=== PATIENT | female | born 1970 | race Two or more races ===

== ENCOUNTER 2020-08-10 12:16 | Outpatient (REF) | payer OTHER, SELFPAY ==
--- NOTE | 2020-08-10 | MM_ITS ---
EXAMINATION: MM SCREENING DIGITAL BREAST TOMOSYNTHESIS, BILATERAL CLINICAL INFORMATION: Screening. Asymptomatic. The lifetime risk of breast cancer based on the Tyrer-Cuzick Model is 6.9%. COMPARISON: Mammography: April 13, 2019 and studies dating back to October 19, 2012 TECHNIQUE: Digital breast tomosynthesis is performed in both the craniocaudal and mediolateral oblique views along with computer-aided detection (CAD). Synthesized 2D images are generated from the tomosynthesis. FINDINGS: There are scattered areas of fibroglandular density (ACR BI-RADS breast composition Category b). There is a 7 x 5 mm well-circumscribed density about the medial aspect of the left breast on craniocaudal view approximately 4 cm from the nipple. No other right or left breast mammographic findings which appears significant. Spot compression view and possible ultrasound of the left breast is recommended. MM/MM tomosynthesis screening BI IMPRESSION: Left breast density for further evaluation as described. ASSESSMENT: BI-RADS 0: Incomplete - Need Additional Imaging Evaluation RECOMMENDATION: 1. Additional views of the left breast 2. Targeted ultrasound if warranted after review of the additional views. 3. Radiology department staff will contact the patient for additional imaging. This patient's information was entered into a reminder system with a target due date for their next mammogram.
== END 2020-08-10 12:17 | disposition home or self-care (01) ==
LOC: HO.MAMMO 12:16
PROVIDERS: PCP Internal Medicine; Visit Provider Internal Medicine
DX: Z12.31 Encounter for screening mammogram for malignant neoplasm of breast (principal)
CPT/HCPCS: 77063; 77067

== ENCOUNTER 2020-09-04 12:14 | Outpatient (REF) | payer OTHER, SELFPAY ==
--- NOTE | 2020-09-04 12:18 | MM_ITS ---
EXAMINATION: MM DIAGNOSTIC DIGITAL BREAST TOMOSYNTHESIS, LEFT TARGETED BREAST ULTRASOUND, LEFT CLINICAL INFORMATION: Density superior medial aspect of the left breast. COMPARISON: Mammography: 08/10/2020 and studies dating back to 10/19/2012. TECHNIQUE: Digital breast tomosynthesis is performed. 2D images are generated from the tomosynthesis. The following views are obtained: Spot compression craniocaudal view. FINDINGS: There are scattered areas of fibroglandular density (ACR BI-RADS breast composition Category b). There is persistence of a circumscribed density about the medial aspect of the breast approximately 4.2 cm from the nipple measuring approximately 7 x 5 mm in size. Targeted ultrasound evaluation of the left breast demonstrated two cysts, one with thin septation at 12 o'clock position measuring approximately 1.0 x 1.0 x 0.3 cm in size and one at the 11 o'clock position measuring approximately 7 x 5 x 2 mm in size. Scanning of the entire medial aspect of the breast did not demonstrate abnormal solid masses or region of abnormal distal sound shadowing. Results are provided to the patient at time of visit by the technologist. MM/MM tomosynthesis added views L IMPRESSION: Mammographic finding within the left breast likely corresponds to a cyst. Recommend six-month follow-up left breast mammogram to ensure stability. ASSESSMENT: BI-RADS 3: Probably Benign. RECOMMENDATION: Diagnostic mammography in 6 months. This patient's information was entered into a reminder system with a target due date for their next mammogram.
--- NOTE | 2020-09-04 12:18 | US_ITS ---
EXAMINATION: US DIAGNOSTIC ULTRASOUND BREAST, LEFT CLINICAL INFORMATION: Inconclusive mammogram COMPARISON: 08/10/2020 and mammography dating back to 10/19/2012. TECHNIQUE: Ultrasound of the breast is performed with real-time bolton-scale imaging and color Doppler. FINDINGS: Targeted ultrasound evaluation of the left breast demonstrated 2 cysts, one within septation at 12 o'clock position measuring approximately 1.0 x 1.0 x 0.3 cm in size and one at the 11 o'clock position approximately 7 x 5 x 2 mm in size. Scanning of the medial aspect of the breast did not demonstrate any abnormal solid masses or region of abnormal distal sound shadowing. Results are provided to the patient at time of visit by the technologist. US/US breast LT limited IMPRESSION: Mammographic finding within the left breast likely corresponds to a cyst. Recommend six-month follow-up left breast mammogram to arrange for stability. ASSESSMENT: BI-RADS 3: Probably Benign RECOMMENDATION: Diagnostic mammography in 6 months.
== END 2020-09-04 12:15 | disposition home or self-care (01) ==
LOC: HO.MAMMO 12:14
PROVIDERS: PCP Internal Medicine; Visit Provider Internal Medicine
DX: R92.2 Inconclusive mammogram (principal)
CPT/HCPCS: 76642; 77061; 77065

== ENCOUNTER 2021-03-05 13:48 | Outpatient (REF) | payer SELFPAY ==
--- NOTE | ~2021-03-05 | MM_ITS ---
EXAMINATION: MM DIAGNOSTIC DIGITAL BREAST TOMOSYNTHESIS, LEFT CLINICAL INFORMATION: Short interval follow-up probable benign nodularity left breast corresponding to cyst on targeted ultrasound. The lifetime risk of breast cancer based on the Tyrer-Cuzick Model is 6%. COMPARISON: Mammography: 09/04/2020, 08/10/2020 (BI-RADS 0), 04/13/2019, targeted left breast ultrasound 09/04/2020. TECHNIQUE: Digital breast tomosynthesis is performed in both the craniocaudal and mediolateral oblique views along with computer-aided detection (CAD). Synthesized 2D images are generated from the tomosynthesis. Additional exaggerated left CC view is provided. FINDINGS: There are scattered areas of fibroglandular density (ACR BI-RADS breast composition Category b). Parenchymal pattern is similar to prior exam. The nodularity inner quadrant appear stable. They will be reassessed again at time of annual bilateral exam, due in 6 months. There is no architectural abnormality or abnormal calcifications. No developing density. Results are provided to the patient at time of visit by the technologist. MM/MM tomosynthesis diagnostic LT IMPRESSION: There are no significant changes from prior study. ASSESSMENT: BI-RADS 3: Probably Benign RECOMMENDATION: Diagnostic mammography at time of annual bilateral exam, due in 6 months. This patient's information was entered into a reminder system with a target due date for their next mammogram.
== END 2021-03-05 13:49 | disposition home or self-care (01) ==
LOC: HO.MAMMO 13:48
PROVIDERS: Visit Provider Internal Medicine
DX: N60.02 Solitary cyst of left breast (principal)
CPT/HCPCS: 77061; 77065

== ENCOUNTER 2021-09-04 13:19 | Outpatient (REF) | payer SELFPAY ==
--- NOTE | ~2021-09-04 | MM_ITS ---
EXAMINATION: MM DIAGNOSTIC DIGITAL BREAST TOMOSYNTHESIS, BILATERAL CLINICAL INFORMATION: Due for yearly. Short interval follow-up benign nodularity left breast corresponding to cyst on targeted ultrasound. The lifetime risk of breast cancer based on the Tyrer-Cuzick Model is 5%. COMPARISON: Mammography: 03/05/2021, 09/04/2020, 08/10/2020 (BI-RADS 0), 04/13/2019; targeted left breast ultrasound 09/04/2020 and targeted right breast ultrasound 04/22/2019. TECHNIQUE: Digital breast tomosynthesis is performed in both the craniocaudal and mediolateral oblique views along with computer-aided detection (CAD). Synthesized 2D images are generated from the tomosynthesis. Additional exaggerated right CC, magnification left CC, magnification left LM views are obtained. FINDINGS: There are scattered areas of fibroglandular density (ACR BI-RADS breast composition Category b). Nodular asymmetry mid 11:00 left breast and nodular asymmetry anterior upper outer right breast are similar to prior studies. There is no architectural abnormality or developing density. The axilla and skin contours are unremarkable. There are a few punctate calcifications in the upper inner left breast, in retrospect similar to recent prior exams 03/05/2021 and 09/04/2020. Left breast will be reassessed again in 6 months to also include magnification views. Results are provided to the patient at time of visit by the technologist. MM/MM tomosynthesis diagnostic BI IMPRESSION: 1. Left: Nodularity stable. No developing density. Fine benign appearing calcifications. 2. Right: No significant changes from prior studies. ASSESSMENT: BI-RADS 3: Probably Benign RECOMMENDATION: Diagnostic left mammography in 6 months to include additional magnification views. This patient's information was entered into a reminder system with a target due date for their next mammogram.
== END 2021-09-04 13:20 | disposition home or self-care (01) ==
LOC: HO.MAMMO 13:19
PROVIDERS: Visit Provider Internal Medicine
DX: R92.2 Inconclusive mammogram (principal)
CPT/HCPCS: 77062; 77066

== ENCOUNTER 2023-06-07 10:40 | Emergency (ER) | payer OTHER, SELFPAY ==
[2023-06-07 11:15] VITALS: BP 154/102; PULSE 136; RESP 19; TEMP 37.4; O2SAT 98; BMI 21.5
--- NOTE | 2023-06-07 11:18 | ECG_ITS ---
Test Reason : ANXIETY/HEADACHE Blood Pressure : / mmHG Vent. Rate : 112 BPM Atrial Rate : 112 BPM P-R Int : 162 ms QRS Dur : 086 ms QT Int : 336 ms P-R-T Axes : 072 057 038 degrees QTc Int : 458 ms Sinus tachycardia with occasional , and consecutive Premature ventricular complexes Minimal voltage criteria for LVH, may be normal variant ( Sokolow-Ventura ) Nonspecific T wave abnormality Abnormal ECG When compared with ECG of 11-APR-2016 23:50, Nonspecific T wave abnormality is now Present Premature ventricular complexes are now Present Heart rate has increased Referred By: Generic ED Physician Electronically Signed By:YISSEL GARCIA
[2023-06-07 11:32] LABS: MANUAL DIFF FLAG NO
[2023-06-07 11:39] LABS: Basophils Absolute Auto 0.1 X10*3/uL (0.0-0.2); Basophils Percent Auto 1.1 % (0-2); Eosinophils Absolute Auto 0.1 X10*3/uL (0.0-0.4); Eosinophils Percent Auto 1.1 % (0-4); Hemoglobin 13.8 g/dl (12.0-16.0); Imm Gran Abs Auto 0.01 X10*3/uL (0.00-0.03); Imm Gran Pct Auto 0.2 % (0.0-0.4); Lymphocytes Absolute Auto 1.1 X10*3/uL (1.2-4.9); Lymphocytes Percent Auto 25.1 % (20-40); Mean Corpuscular HGB Conc 34.5 g/dl (31.0-35.0); Mean Corpuscular Hemoglobin 32.5 pg (27.0-33.0); Mean Corpuscular Volume 94.3 fL (80.0-98.0); Mean Platelet Volume 9.6 fL (9.4-12.3); Monocytes Absolute Auto 0.4 X10*3/uL (0.1-1.2); Monocytes Percent Auto 8.1 % (2-11); Neutrophils Absolute Auto 2.9 x10*3/uL (2.0-8.3); Neutrophils Percent Auto 64.4 % (45-73); Platelet Count 326 X10*3/uL (160-400); Red Blood Count 4.24 X10*6/uL (4.20-5.50); Red Cell Distribution Width 12.4 % (11.0-16.0); White Blood Count 4.4 X10*3/uL (4.8-10.8)
[2023-06-07 11:58] LABS: COVID-19 Test Negative (Negative); IDNOW Serial# 08D9AD1C
[2023-06-07 11:59] LABS: IDNOW Serial# BCCEAD1C; Influenza A Negative (Negative); Influenza B2 Negative (Negative)
[2023-06-07 12:00] LABS: Anion Gap 12 (12-20); Blood Urea Nitrogen 8 mg/dL (9-16); Carbon Dioxide 27 mmol/L (22-29); Chloride 105 mmol/L (96-108); Creatinine Clr Calc Pharmacy 71.9; Estimated Glomerular Filt Rate > 60; Glucose Random 83 mg/dL (60-115); Potassium 3.1 mmol/L (3.3-5.1); Sodium 141 mmol/L (135-145)
[2023-06-07 14:22] VITALS: BP 145/89; PULSE 99; RESP 16; O2SAT 100
--- NOTE | 2023-06-07 14:23 | PC.NURSE ---
pt reporting elevated BP, some dizziness an anxiety. Pt resting on stretcher comfortably , respirations even and unlabored, skin pwd, no apparent distress at this time
--- NOTE | 2023-06-07 15:01 | ED_ITS ---
HPI - General Adult General Chief complaint: General Medical Stated complaint: Anxiety/ Headache Time Seen by Provider: 06/07/23 14:17 Source: patient Mode of arrival: ambulatory Limitations: no limitations History of Present Illness HPI narrative: 52-year-old female with PMHx of HTN, anxiety, migraines presents to the ED today with a complaint of headache, dizziness, palpitations, paresthesias in her toes x2 days. Reports symptom onset yesterday however resolved into the evening. Went to [facility] to measure her BP which was 170/80. Took 2 doses of amlodipine at that time. Symptoms resolved until waking up this morning. Reports PATEL feels like her typical migraine. She's been unable to refill her abortive migraine rx due to losing her health insurance. Reports anxiety surrounding her son who passed from an NC at a young age. Denies vision changes, fever, chills, nausea, vomiting, chest pain, shortness of breath, abdominal pain, lower extremity edema/pain, weakness or numbness of the extremities, syncope. Denies history of NC or CAD. No history of VTE. Not on AC. Related Data Previous Rx's Medication Instructions Recorded sumatriptan succinate 50 mg tablet See Rx Instructions PO .COMPLEX 12/27/21 (Imitrex) #14 tabs amlodipine 5 mg tablet 5 mg PO DAILY 90 days #90 tabs 10/07/22 cyclobenzaprine 10 mg tablet 10 mg PO TID PRN for cramps #90 12/27/22 caps lorazepam 0.5 mg tablet 0.5 mg PO BEDTIME PRN anxiety 30 12/29/22 days #30 tabs lorazepam 0.5 mg tablet (Ativan) 0.5 mg PO DAILY PRN anxiety #10 06/07/23 tabs Allergies Allergy/AdvReac Type Severity Reaction Status Date / Time azithromycin Allergy Unknown rash, hives Verified 06/07/23 11:15 [Zithromax Z-Issac] lisinopril Allergy Unknown muscle Verified 06/07/23 11:15 cramps metoprolol Allergy Unknown bruises Verified 06/07/23 11:15 simvastatin Allergy Unknown face Verified 06/07/23 11:15 swelling Review of Systems 2 Review of Systems: Constitutional: No fever, No chills, No fatigue, No malaise ENT/Mouth: No ear pain, No hearing loss,? No nasal congestion, No sinus pain Eyes: No eye pain, No swelling, No redness, No vision changes, No foreign body, No discharge Cardio: No chest pain, + palpitations, No dyspnea on exertion, No orthopnea, No edema Respiratory: No SOB, No cough, No sputum, No wheezing, No dyspnea GI: No nausea, No vomiting, No hematemesis, No abdominal pain, No diarrhea : No irregular bleeding, No dysuria, No frequency, No urgency, No hesitancy, No hematuria MSK: No back pain, No neck pain, No joint pain, No myalgias Skin: No skin lesions, No rashes Neuro: No weakness, No numbness, + paresthesias, No LOC, + dizziness, + headache Psych: + anxiety/panic, No depression, No SI/HI, No AH/VH Heme/Lymph: No bruising, No bleeding, No lymphadenopathy Endocrine: No Polyuria, No Polydipsia, No Temperature Intolerance Yes all other systems are reviewed and are negative [facility] Past Medical History Attestation statement: The following information was validated with the patient. Source: old records reviewed and nursing notes reviewed Medical History Hypercholesterolemia Hypertension Tobacco abuse Anxiety Alcohol abuse Surgical History History of tubal ligation History of appendectomy Family History Family History Father Diabetes Hypertension CVD (cardiovascular disease) Stroke Mother Diabetes Hypertension Cervical cancer Sister Uterine cancer Maternal Aunt Cervical cancer Social History Social History Housing: House Alcohol intake: current Alcohol intake frequency: a few times a month Patient Tobacco Use Status: Current everyday Tobacco user Tobacco use type: Cigarette Cigarettes Per Day: 10 e-Cigarette/Vaping Use: Never Used Second Hand Smoke Exposure: No Advance Directives: No service: No Current occupational status: employed Current occupational exposures/hazards: No Cognitive needs: No Hearing needs: No Vision needs: No Physical Exam ED Vital Signs: Vital Signs - 24 hr 06/07/23 11:15 06/07/23 14:22 Temperature 99.4 F Pulse Rate 136 H 99 Respiratory Rate 19 16 Blood Pressure 154/102 H 145/89 H Pulse Oximetry 98 100 Oxygen Delivery Method Room Air Room Air BMI result Body Mass Index 21.5 Signs initially tachycardic to 136, now at 99 > likely secondary to anxiety. General: Nontoxic appearing. Tearful, speaking about the loss of her son. Skin: Warm and dry. No rashes or lesions. Head: Normocephalic, atraumatic. EENT: EAC patent. Hearing is intact b/l. Conjunctiva clear. Sclera is anicteric. PERRLA. EOM intact. Nasal septum is midline. Nares patent bilaterally. Moist mucous membranes. Neck: Supple without LAD. Normal ROM. Trachea midline.? Cardiac: Chest wall symmetric. Regular rate and rhythm. S1 and S1 appreciated. No MRG. No JVD. Lungs: CTA bilaterally. No rales, rhonchi, or wheezes. Normal respiratory effort without accessory muscle use. Abdomen: No visible lesions or scars. Soft, non-tender, non-distended. No rebound tenderness or guarding. Normoactive BS x4. No masses, hepatomegaly, or splenomegaly.? Ext: Upper and lower extremities atraumatic. Full ROM throughout. Strength 5/5 throughout. Capillary refill <2 seconds in all extremities. Pulses 2+ equal and bilateral. No edema, cyanosis, or clubbing. Negative sebastien b/l. Neuro: Alert and oriented x3. Normal speech. CN 2-12 grossly intact. Sensation intact to light touch.? Neurovascular intact distally. Reflexes 2+ bilaterally. Normal finger to nose and heel to blanco. Ambulating with steady gait. Psych: Responds appropriately to questions.? Course Course Course Narrative: CBC without leukocytosis or anemia. Hypokalemic to 3.1 > 60 of oral potassium given. No other acute electrolyte abnormalities requiring intervention. Troponin negative. COVID and flu negative. On re-evaluation, patient much more calm stating that she feels lot better after receiving medications. No longer has a migraine. Does not feel anxious. Blood pressure improved. Patient would like to go home. > patient asking to refill her Ativan. Referred to [facility] > has not filled since December. She tells me that she has an appointment with her PCP at the end of this month. Will send patient home with a short script of Ativan to take as needed for anxiety. Advised patient that she will have to f/u with PCP for further prescriptions/ management. > discussed lab results and EKG results w/ patient. All questions answered. Discussed worrisome signs and symptoms and when to return to the emergency department. Patient agreeable with disposition. Stable for discharge. Medications Administered Discontinued Medications Generic Name Dose Route Start Last Admin Trade Name Zuri PRN Reason Stop Dose Admin Diphenhydramine HCl 50 mg 06/07/23 14:57 06/07/23 15:40 Diphenhydramine Hcl 25 Mg Capsule PO 06/07/23 14:58 50 mg ONCE ONE Administration Ketorolac Tromethamine 15 mg 06/07/23 14:57 06/07/23 15:39 Ketorolac Tromethamine 15 Mg/Ml Vial IM 06/07/23 14:58 15 mg ONCE ONE Administration Lorazepam 1 mg 06/07/23 14:57 06/07/23 15:40 Lorazepam 1 Mg Tablet PO 06/07/23 14:58 1 mg ONCE ONE Administration Metoclopramide HCl 10 mg 06/07/23 14:57 06/07/23 15:39 Metoclopramide Hcl 10 Mg/2 Ml Vial IM 06/07/23 14:58 10 mg ONCE ONE Administration Potassium Chloride 60 meq 06/07/23 16:39 06/07/23 17:50 Potassium Chloride Er 20 Meq Tab.Er.Prt PO 06/07/23 16:40 60 meq ONCE ONE Administration Medical Decision Making Medical Decision Making MDM Narrative: 52-year-old female with PMHx of HTN, anxiety, migraines presents to the ED today with a complaint of headache, dizziness, palpitations, paresthesias in her toes x2 days. Signs notable for hypertension. Initially tachycardic to 136, now 99. Afebrile, non hypoxic. Patient tearful during examination secondary to speaking about the loss of her son. SHAISTA. Lungs clear to auscultation bilaterally. Tachy rate with normal rhythm. Nonfocal exam. Cerebellum intact. Ambulating with steady gait. Concern for anxiety vs arrhythmia vs headache vs migraine. Unlikely CVA, TIA, intracranial hemorrhage, posterior stroke, PE (PERC initially 1, now 0), ACS, dissection, DVT, pneumonia. Plan: labs, ekg, trop, medicaion Differential Diagnosis Differential Diagnoses: The differential diagnosis associated with the presentation includes Concern for anxiety vs arrhythmia vs headache vs migraine. Unlikely CVA, TIA, intracranial hemorrhage, posterior stroke, PE (PERC initially 1, now 0), ACS, dissection, DVT, pneumonia. Lab Data MDM Lab Attestation statement: I reviewed the patient's lab results. see course narrative above 06/07/23 11:27 06/07/23 11:27 Labs: Lab Results 06/07/23 Range/Units 11:27 WBC 4.4 L (4.8-10.8) X10*3/uL RBC 4.24 (4.20-5.50) X10*6/uL Hgb 13.8 (12.0-16.0) g/dl Hct 40.0 (37.0-47.0) % MCV 94.3 (80.0-98.0) fL MCH 32.5 (27.0-33.0) pg MCHC 34.5 (31.0-35.0) g/dl RDW 12.4 (11.0-16.0) % Plt Count 326 (160-400) X10*3/uL MPV 9.6 (9.4-12.3) fL Immature Gran % (Auto) 0.2 (0.0-0.4) % Neut % (Auto) 64.4 (45-73) % Lymph % (Auto) 25.1 (20-40) % [place] % (Auto) 8.1 (2-11) % Eos % (Auto) 1.1 (0-4) % Baso % (Auto) 1.1 (0-2) % Lymph # (Auto) 1.1 L (1.2-4.9) X10*3/uL [place] # (Auto) 0.4 (0.1-1.2) X10*3/uL Eos # (Auto) 0.1 (0.0-0.4) X10*3/uL Baso # (Auto) 0.1 (0.0-0.2) X10*3/uL Abs Immat Gran (auto) 0.01 (0.00-0.03) X10*3/uL Absolute Neuts (auto) 2.9 (2.0-8.3) x10*3/uL Absolute Nucleated RBC 0.000 (0.0-0.012) X10*3/uL Nucleated RBC % (auto) 0.0 (0.0-0.2) /100WBC Sodium 141 (135-145) mmol/L Potassium 3.1 L (3.3-5.1) mmol/L Chloride 105 (96-108) mmol/L Carbon Dioxide 27 (22-29) mmol/L Anion Gap 12 (12-20) BUN 8 L (9-16) mg/dL Creatinine 0.79 (0.5-1.4) mg/dL Estim Creat Clear Calc 71.9 Estimated GFR > 60 Random Glucose 83 (60-115) mg/dL Calcium 10.0 (8.4-10.2) mg/dL Troponin I High Sens 7.0 (<3.5-17.0) ng/L COVID-19 ([place]) Negative (Negative) COVID-19 Clin Com See Note Influenza Type A ([facility]) Negative (Negative) Influenza Type B ([facility]) Negative (Negative) Influenza A & B Note See Note Independent Interpretation I performed an independent interpretation of an: EKG (Sinus tachycardia at a rate of 112 BPM, CT of 336, no acute ischemic changes.) External Record Review External record reviewed: Inpatient record Prescription Management I considered prescription management with: Pain Medication and Other (anxiolitic) Chronic Conditions Patient?s care impacted by: Hypertension Core Measures AMI core measures followed: Yes Measure exclusions: not indicated Discharge Plan Discharge Clinical Impression: Anxiety, Migraine, Hypertension Patient Disposition: Home, Self-Care Instructions: Migraine Headache (ED), Hypertension (ED), Anxiety (ED) Additional Instructions: Your lab workup is reassuring. You tested negative for COVID and flu. Your EKG was normal. Your heart enzymes were negative. your potassium was noted to be low. You were given oral potassium in the ED. please follow-up with your primary care physician to make sure that her potassium levels are adequate. A prescription for your Ativan has been sent to your pharmacy. Take this as needed for anxiety. Keep your appointment with your primary care physician at the end of this month for further treatment. Return to the ED if your symptoms persist or worsen. Prescriptions: New lorazepam [Ativan] 0.5 mg tablet 0.5 mg PO DAILY PRN (Reason: anxiety) Qty: 10 0RF No Action cyclobenzaprine 10 mg tablet 10 mg PO TID PRN (Reason: for cramps) Qty: 90 0RF lorazepam 0.5 mg tablet 0.5 mg PO BEDTIME PRN (Reason: anxiety) 30 Days Qty: 30 0RF sumatriptan succinate [Imitrex] 50 mg tablet See Rx Instructions PO .COMPLEX Qty: 14 1RF Rx Instructions: take 1 tab at onset of headache; if no relief may repeat 1 tab after at least 2 hrs; max = 4 tabs/24 hr PO amlodipine 5 mg tablet 5 mg PO DAILY 90 Days Qty: 90 2RF Referrals: Po,Marzena Shelby MD [Primary Care Provider] - Interventions: ED Discharge Assessment Last Done: 06/07/23 17:54 Discharge Date/Time: 06/07/23 17:55
[2023-06-07] MEDS: Metoclopramide HCl 10 MG/2 ML VIAL IM (15:39)
[2023-06-07] MEDS: Ketorolac Tromethamine 15 MG/ML VIAL IM (15:39)
[2023-06-07] MEDS: diphenhydrAMINE HCL 25 MG CAPSULE 50 MG PO (15:40)
[2023-06-07] MEDS: LORazepam 1 MG TABLET PO (15:40)
[2023-06-07] MEDS: Potassium Chloride ER 20 MEQ TAB.ER.PRT 60 MEQ PO (17:50)
== END 2023-06-07 17:55 | disposition home or self-care (01) ==
PROVIDERS: Emergency Provider Emergency Medicine; PCP Internal Medicine
DX: F41.9 Anxiety disorder, unspecified (principal); G43.909 Migraine, unspecified, not intractable, without status migrainosus; I10 Essential (primary) hypertension; R00.0 Tachycardia, unspecified; Z20.822 Contact with and (suspected) exposure to COVID-19; E78.00 Pure hypercholesterolemia, unspecified; Z79.899 Other long term (current) drug therapy
CPT/HCPCS: 36415; 80048; 84484; 85025; 87502; 87635; 93005; 96372; 99284; J1885; J2765

== ENCOUNTER 2023-06-25 16:27 | Outpatient (AMB) | payer OTHER, SELFPAY ==
[2023-06-25 16:28] VITALS: BP 150/66; PULSE 101; O2SAT 96; BMI 21.5
--- NOTE | 2023-06-25 16:28 | A.OFFPC_ITS ---
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: No Allergies azithromycin [Zithromax Z-Issac] Allergy (Unknown, Verified 06/25/23 16:38) rash, hives lisinopril Allergy (Unknown, Verified 06/25/23 16:38) muscle cramps metoprolol Allergy (Unknown, Verified 06/25/23 16:38) bruises simvastatin Allergy (Unknown, Verified 06/25/23 16:38) face swelling Medication List - Last Reconciled 06/25/23 by VALENTINA Anderson amlodipine 5 mg PO DAILY 90 days cyclobenzaprine 10 mg PO TID PRN lorazepam 0.5 mg PO BEDTIME PRN 30 days sumatriptan succinate (Imitrex) take 1 tab at onset of headache; if no relief may repeat 1 tab after at least 2 hrs; max = 4 tabs/24 hr PO Tobacco use date assessed: 06/25/23 Dental Screening Dental Screen Date: 06/25/23 Did you have a dental visit in the last 12 months?: Yes Did you have a dental problem in the last 6 months where you did not have access to dental care?: No Was dental information given to patient?: Patient has dentist HPI PHYSICAL HPI Details Patient is a 52-year-old female who presents today for physical exam. Patient of Dr. Carmen. Medical history significant for anxiety, tobacco abuse- patient reports smoking about 7-10 cigarettes per day-would like to have nicotine patch-will refer for low-dose chest CT scan, hypertension, hypercholesterolemia, migraine-stable with sumatriptan p.r.n.. Patient has referral for mammogram, will follow-up on this. Pap smear normal 2019 per patient. Today we discussed patient's need for colon cancer screening. Patient reports that 1 month ago she did removed tick from her head and she would like to have Lyme disease blood work done, she did not go to the emergency department. Reports blood pressures at home systolic in 140s and 150s. No shortness of breath or chest pain. [facility] Medical History COVID-19 virus infection Hypercholesterolemia Hypertension Tobacco abuse Anxiety Alcohol abuse Surgical History History of tubal ligation History of appendectomy Family History Father Diabetes Hypertension CVD (cardiovascular disease) Stroke Mother Diabetes Hypertension Cervical cancer Sister Uterine cancer Maternal Aunt Cervical cancer Social History Housing: House Alcohol intake: current Alcohol intake frequency: a few times a month Patient Tobacco Use Status: Current everyday Tobacco user Tobacco use type: Cigarette Cigarettes Per Day: 10 e-Cigarette/Vaping Use: Never Used Second Hand Smoke Exposure: No service: No Current occupational status: employed Current occupational exposures/hazards: No Cognitive needs: No Hearing needs: No Vision needs: No Questionnaire PHQ-9 Over the last 2 weeks, how often have you been bothered by any of the following problems? 1. Little interest or pleasure in doing things: not at all 2. Feeling down, depressed, or hopeless: more than half the days 3. Trouble falling or staying asleep, or sleeping too much: several days (sleeping less ) 4. Feeling tired or having little energy: several days 5. Poor appetite or overeating: not at all 6. Feeling bad about yourself - or that you are a failure or have let yourself or your family down: several days 7. Trouble concentrating on things, such as reading the newspaper or watching television: several days 8. Moving or speaking so slowly that other people could have noticed. Or the opposite - being so fidgety or restless that you have been moving around a lot more than usual: not at all 9. Thoughts that you would be better off or of hurting yourself in some way: not at all Total score: 6 Depression Screening Interpretation: Negative 21284 - PHQ-9 Billing: Yes Source: Developed by Drs. Binu Calhoun, Savannah Calvillo, Melquiades Hale and colleagues, with an educational gallo from [employer]. Thrive Questionnaire Date Thrive assessed: 06/25/23 I am a: Patient What is your living situation today?: I have a steady place to live Within the past 12 months, did the food you bought not last and you didn't have the money to get more?: Never true Within the past 12 months, did you worry whether your food would run out before you got money to buy more?: Never true Currently or been in a relationship where the following occur: no concerns reported AUDIT C Alcohol Use Questionnaire (AUDIT-C) 1. How often do you have a drink containing alcohol?: Monthly or less 2. How many drinks containing alcohol do you have on a typical day when you are drinking?: 1 or 2 3. How often do you have six or more drinks on one occasion?: Never Total Score: 1 Score Reviewed/Action Taken: Yes (reviewed, she reports not drinking every day. ) MACHO-7 AMB Questionnaire MACHO-7 Date MACHO - 7 assessed: 10/07/22 Feeling nervous, anxious, or on edge: 2 = More than half the days Not being able to stop or control worryin = Not at all Worrying too much about different things: 2 = More than half the days Trouble relaxin = Not at all Being so restless that it is hard to sit still: 0 = Not at all Becoming easily annoyed or irritable: 2 = More than half the days Feeling afraid as if something awful might happen: 0 = Not at all Total MACHO-7 score (0-4 normal; 5-9 mild; 10-14 moderate; 15-21 severe): 6 Source: Developed by Drs. Binu Calhoun, Savannah Calvillo, Melquiades Hale and colleagues, with an educational gallo from [employer]. MACHO-7 Assessment Billing MACHO-7 Assessment Tool: AMCHO-7 Assessment 95654 Review of Systems Const Denies body aches, Denies chills, Denies fever(s) and Denies headache(s) Eyes Denies change in vision ENT Denies dizziness, Denies otalgia, Denies headache(s), Denies nasal discharge, Denies sinus pain and Denies sore throat Card Denies chest pain, Denies edema, Denies lightheadedness and Denies dyspnea Resp Denies cough, Denies dyspnea and Denies wheezing GI Denies constipation, Denies diarrhea, Denies nausea and Denies vomiting Denies dysuria Musc Reports back pain and Denies myalgias Skin/Breast Denies rash Neuro Denies dizziness and Denies headache(s) Aller/Immun Denies wheezing Physical exam (Primary Care) Vital Signs: Last Vital Signs Pulse 101 H 06/25/23 16:28 BP 150/66 H 06/25/23 16:28 Pulse Ox 96 06/25/23 16:28 Oxygen Delivery Method Room Air 06/25/23 16:28 BMI result Body Mass Index 21.5 Tobacco/Smoking Status: Tobacco use Status Tobacco use date assessed 06/25/23 06/25/23 16:30 Patient Tobacco Use Status Current everyday Tobacco 06/25/23 16:30 Tobacco use type Cigarette 06/25/23 16:30 e-Cigarette/Vaping Use Never Used 06/25/23 16:30 PHQ-9: PHQ-9 Score PHQ-9: Total score 6 06/25/23 16:36 Depression Screening Interpretation: Negative Thrive Assessment: Date of Thrive Assessment Date Thrive assessed 06/25/23 06/25/23 16:30 Currently or been in a relationship where the following occur: no concerns reported Const General: cooperative and no acute distress Orientation/consciousness: patient oriented x3 HENMT Head: Yes normocephalic and Yes atraumatic Ears: TM's normal bilaterally Face and sinus: Yes sinuses nontender Mouth: oropharynx normal and moist mucous membranes Throat: Yes posterior oropharynx normal Eyes General: appearance normal, both eyes and all related structures Pupils: Equal, round and reactive pupils present EOM: EOMs intact bilaterally Neck Neck: Yes normal visual inspection, Yes full ROM and Yes no lymphadenopathy Thyroid: Thyroid normal Resp Effort & Inspection: normal respiratory effort and able to speak in complete sentences Auscultation: clear to auscultation bilaterally, no crackles, no rales, no rhonchi and no wheezes Cardio Rate: regular rate Rhythm: regular rhythm Heart sounds: S1 normal heart sound present, S2 normal heart sound present and no murmurs GI Palpation (GI): Soft to palpation, not firm, nontender, no guarding, not rigid and no hepatosplenomegaly Auscultation: normal bowel sounds General: No CVA tenderness Back/Spine/Pelvis Back: No CVA tenderness Skin General skin exam: no rashes or lesions noted Neuro General: patient oriented x3 Cranial nerves: Yes Equal, round and reactive pupils present Gait exam (Neuro): Normal gait present Extrem General: Yes full ROM and No edema Assessment and Plan Assessment & Plan (1) Tick bite: Comment: 04/2023 Code(s): W57.XXXA - Bitten or stung by nonvenomous insect and other nonvenomous arthropods, initial encounter Plan: Lyme disease blood work ordered (2) Annual physical exam: Code(s): Z00.00 - Encounter for general adult medical examination without abnormal findings Plan: Patient was encouraged to complete her blood work that was ordered by PCP (3) Colon cancer screening: Code(s): Z12.11 - Encounter for screening for malignant neoplasm of colon (4) Migraine: Code(s): G43.909 - Migraine, unspecified, not intractable, without status migrainosus Plan: Stable with sumatriptan p.r.n. (5) Hypertension: Code(s): I10 - Essential (primary) hypertension Plan: Goal BP equal or less than 140/90 Blood pressure elevated Increase amlodipine to 10 mg daily Reinforced low-sodium diet Follow-up with nurse in 2 weeks for BP recheck Monitor blood pressures at home (6) Tobacco abuse: Comment: discussed about smoking 09/2022 Code(s): Z72.0 - Tobacco use Plan: Nicotine patch sent Referral for low-dose chest CT scan (7) Anxiety: Code(s): F41.9 - Anxiety disorder, unspecified Plan: Continue lorazepam at bedtime p.r.n.-educated about dependency and memory loss Patient is not interested in counseling referral (8) Back pain: Code(s): M54.9 - Dorsalgia, unspecified Plan: Patient reports chronic intermittent back pains and she requested refill on cyclobenzaprine that she takes as needed with improvement Plan Follow-up with PCP in 4 months or sooner as needed Orders: Orders Lyme IgG/IgM w/reflex to WB Today W57.XXXA - Bitten or stung by nonvenomous insect and other nonvenomous arthropods, initial encounter Referrals Thoracic Surgery Referral Z72.0 - Tobacco use Gastroenterology Referral Z12.11 - Encounter for screening for malignant neoplasm of colon Medications: New amlodipine 10 mg PO DAILY 90 tabs 1RF I10 - Essential (primary) hypertension nicotine 1 patch transdermal Q24H 28 ea 0RF Z72.0 - Tobacco use Refilled cyclobenzaprine 10 mg PO TID PRN 90 caps 0RF for cramps Discontinued amlodipine Discontinued Reason: Doctor's Order 5 mg PO DAILY 90 days 90 tabs 2RF Z12.11 - Encounter for screening for malignant neoplasm of colon Coding Level of Care Code Est Pt Prev Care 40-64y(43965) Diagnoses Tick bite W57.XXXA Annual physical exam Z00.00 Colon cancer screening Z12.11 Migraine G43.909 Primary hypertension I10 Tobacco abuse Z72.0 Anxiety F41.9 Back pain M54.9 Additional Codes MACHO-7 Assessment Billing - MACHO-7 Assessment Tool: MACHO-7 Assessment [id number] ([id number])
[2023-06-25 16:50] VITALS: BP 158/80
== END 2023-06-25 16:55 | disposition home or self-care (01) ==
PROVIDERS: PCP Internal Medicine; Visit Provider Nurse Practitioner Family
DX: Z00.00 Encounter for general adult medical examination without abnormal findings (principal); T63.481A Toxic effect of venom of other arthropod, accidental (unintentional), initial encounter; G43.909 Migraine, unspecified, not intractable, without status migrainosus; I10 Essential (primary) hypertension; Z72.0 Tobacco use; F41.9 Anxiety disorder, unspecified; M54.9 Dorsalgia, unspecified
CPT/HCPCS: 99396

== ENCOUNTER 2023-06-30 08:37 | Outpatient (REF) | payer OTHER, SELFPAY ==
[2023-06-30 09:03] LABS: MANUAL DIFF FLAG NO
[2023-06-30 09:16] LABS: Basophils Percent Auto 0.9 % (0-2); Eosinophils Absolute Auto 0.1 X10*3/uL (0.0-0.4); Eosinophils Percent Auto 3.3 % (0-4); Hematocrit 37.6 % (37.0-47.0); Hemoglobin 12.4 g/dl (12.0-16.0); Lymphocytes Absolute Auto 1.2 X10*3/uL (1.2-4.9); Lymphocytes Percent Auto 28.6 % (20-40); Mean Corpuscular Hemoglobin 32.2 pg (27.0-33.0); Mean Corpuscular Volume 97.7 fL (80.0-98.0); Mean Platelet Volume 9.7 fL (9.4-12.3); Monocytes Absolute Auto 0.5 X10*3/uL (0.1-1.2); Monocytes Percent Auto 11.2 % (2-11); Neutrophils Absolute Auto 2.4 x10*3/uL (2.0-8.3); Platelet Count 295 X10*3/uL (160-400); Red Blood Count 3.85 X10*6/uL (4.20-5.50); Red Cell Distribution Width 12.6 % (11.0-16.0); White Blood Count 4.3 X10*3/uL (4.8-10.8)
[2023-06-30 10:10] LABS: Alanine Aminotransferase 18 U/L (0-31); Albumin Level 4.3 g/dL (3.5-5.0); Alkaline Phosphatase 131 U/L (39-117); Anion Gap 13 (12-20); Aspartate Amino Transferase 21 U/L (5-31); Bilirubin Total 0.4 mg/dL (0.0-1.0); Blood Urea Nitrogen 13 mg/dL (9-16); Calcium 9.3 mg/dL (8.4-10.2); Carbon Dioxide 25 mmol/L (22-29); Chloride 107 mmol/L (96-108); Cholesterol 274 mg/dL (<200); Estimated Glomerular Filt Rate > 60; Glucose Random 88 mg/dL (60-115); HDL Cholesterol 58 mg/dL (>40); LDL Cholesterol Calculated 203 mg/dL (<100); Potassium 3.8 mmol/L (3.3-5.1); Sodium 141 mmol/L (135-145); Total Protein 7.6 g/dL (6.5-8.0); Triglycerides 69 mg/dL (<150)
[2023-06-30 10:30] LABS: TSH reflex Free T4 0.91 uIU/mL (0.32-4.0)
[2023-06-30 10:35] LABS: Folate 11.8 ng/mL (> or = 4.0); Vitamin B12 479 pg/mL (200-900)
[2023-07-02 02:04] LABS: Lyme Abs Screen <0.90 index
[2023-07-05 15:48] LABS: Vitamin D 25-OH, D2 <4 ng/mL; Vitamin D 25-OH, D3 26 ng/mL; Vitamin D 25-OH, Total 26 ng/mL (30-100)
== END 2023-06-30 08:38 | disposition home or self-care (01) ==
LOC: HO.LAB 08:37
PROVIDERS: Nurse Practitioner Family; PCP Internal Medicine; Visit Provider Internal Medicine
DX: Z00.00 Encounter for general adult medical examination without abnormal findings (principal); I10 Essential (primary) hypertension; T14.8XXA Other injury of unspecified body region, initial encounter; W57.XXXA Bitten or stung by nonvenomous insect and other nonvenomous arthropods, initial encounter; Y93.9 Activity, unspecified; Y92.9 Unspecified place or not applicable; Y99.9 Unspecified external cause status; E55.9 Vitamin D deficiency, unspecified
CPT/HCPCS: 36415; 80053; 80061; 82306; 82607; 82746; 84443; 85025; 86617; 86618

== ENCOUNTER 2023-07-21 08:51 | Outpatient (REF) | payer OTHER, SELFPAY ==
--- NOTE | ~2023-07-21 | MM_ITS ---
EXAMINATION: MM SCREENING DIGITAL BREAST TOMOSYNTHESIS, BILATERAL CLINICAL INFORMATION: Screening. Asymptomatic. COMPARISON: Mammography: This study is compared with prior exams dating back to 2019. TECHNIQUE: Digital breast tomosynthesis is performed in both the craniocaudal and mediolateral oblique views along with computer-aided detection (CAD). Synthesized 2D images are generated from the tomosynthesis. FINDINGS: There are scattered areas of fibroglandular density (ACR BI-RADS breast composition Category b). Grouped calcifications in superior aspect of the left breast are present. These were evaluated with magnification imaging in August 2021 and felt to be likely benign. At that time, short interval six-month follow-up right diagnostic mammography with magnification is advised. No mammograms were performed after 09/04/2021. The patient should return for magnification imaging of these calcifications. They would then be able to be evaluated 2 years from their original magnification imaging. This would allow definitive determination of their benign nature, should there be no significant interval change. In the right breast, there are no significant masses, abnormal calcifications, or other abnormalities. MM/MM tomosynthesis screening BI IMPRESSION: Grouped calcifications of the left breast warrant additional mammographic imaging magnification. No mammographic signs of malignancy right breast. ASSESSMENT: BI-RADS BI-RADS 0 - Incomplete: Needs additional Imaging. RECOMMENDATION: Additional views of the left breast Radiology department staff will contact the patient for additional imaging. Additional Imaging required This examination should not preclude the clinical evaluation of a suspicious palpable abnormality. This patient's information was entered into a reminder system with a target due date for their next mammogram.
== END 2023-07-21 08:52 | disposition home or self-care (01) ==
LOC: HO.MAMMO 08:51
PROVIDERS: PCP Internal Medicine; Visit Provider Internal Medicine
DX: Z12.31 Encounter for screening mammogram for malignant neoplasm of breast (principal)
CPT/HCPCS: 77063; 77067

== ENCOUNTER → 2023-07-21 09:15 | Outpatient (BNV) | payer OTHER, SELFPAY | PROVIDERS: PCP Internal Medicine; Visit Provider Radiology Diagnostic Radiology | DX: Z12.31 Encounter for screening mammogram for malignant neoplasm of breast (principal) | CPT/HCPCS: 77063; 77067 ==

== ENCOUNTER 2023-08-07 10:43 | Outpatient (REF) | payer OTHER, SELFPAY ==
--- NOTE | ~2023-08-07 | MM_ITS ---
EXAMINATION: MM DIAGNOSTIC DIGITAL MAMMOGRAPHY, LEFT CLINICAL INFORMATION: Follow-up left breast calcifications seen centrally, laterally, with a few groups seen medially. COMPARISON: Mammography: 07/21/2023, 09/04/2021 (only mammogram containing magnification views to compare), 03/05/2021, 09/04/2020, 08/10/2020, 04/13/2019. TECHNIQUE: Digital mammography is performed in the following views: 2-D magnification left CC and ML views, with added 2-D magnification exaggerated CC view. FINDINGS: There are scattered areas of fibroglandular density (ACR BI-RADS breast composition Category b). Calcifications grossly appear stable on the mediolateral view when compared with 09/04/2021. Unfortunately, no magnification views of the lateral aspect of the CC view were obtained and previous exams, and direct comparison cannot be made. Also, the patient was noncompliant and did not return for six-month reevaluation after 09/04/2021. For these reasons, recommend additional 6 month interval follow-up left breast mammography to ensure stability of these calcifications. Oval density in the posterior medial CC projection is unchanged and known to represent a cyst. There are few stable calcifications abutting this cyst. These are unchanged. MM/MM added views LT IMPRESSION: Probably benign calcifications left breast as detailed. Because the lateral aspect of the calcifications on the CC view were never included on a true magnification view, six-month follow-up recommended to ensure stability of left breast calcifications to include standard CC (medial and lateral) and ML magnification views. These calcifications are stable grossly on the ML magnification views. Otherwise, stable benign findings including a cyst in the medial posterior left breast. ASSESSMENT: BI-RADS BI-RADS 3 - Probably benign finding(s) - 6 month follow-up suggested RECOMMENDATION: 6 Month F/U This patient's information was entered into a reminder system with a target due date for their next mammogram.
== END 2023-08-07 10:44 | disposition home or self-care (01) ==
LOC: HO.MAMMO 10:43
PROVIDERS: Visit Provider Internal Medicine
DX: R92.1 Mammographic calcification found on diagnostic imaging of breast (principal)
CPT/HCPCS: 77065

== ENCOUNTER → 2023-08-07 11:00 | Outpatient (BNV) | payer OTHER, SELFPAY | PROVIDERS: Visit Provider Radiology Diagnostic Radiology | DX: R92.1 Mammographic calcification found on diagnostic imaging of breast (principal) | CPT/HCPCS: 77065 ==

== ENCOUNTER 2023-10-17 12:47 | Outpatient (AMB) | payer OTHER, SELFPAY ==
--- NOTE | 2023-10-17 14:00 | AM.OFFWIN_ITS ---
Intake Vital Signs 10/17/23 14:03 Height 5 ft 4 in Weight 124 lb 8 oz BMI 21.4 BP 138/70 Blood Pressure Location Rt brachial Position Sitting Pulse 76 Pulse Source Pulse Oximeter Pulse Oximetry (%) 95 Oxygen Delivery Method Room Air Intake Visit Reasons: EP Chills, Hot flashes, nausea, Intake Note: Pt is here today for hot flashes, chills and nausea. Pt states she been feeling these symptoms for 3 days . Patient Tobacco Use Status: Current everyday Tobacco user Allergies azithromycin [Zithromax Z-Issac] Allergy (Unknown, Verified 10/17/23 14:01) rash, hives lisinopril Allergy (Unknown, Verified 10/17/23 14:01) muscle cramps metoprolol Allergy (Unknown, Verified 10/17/23 14:01) bruises simvastatin Allergy (Unknown, Verified 10/17/23 14:01) face swelling Medication List - Last Reconciled 10/17/23 by Nicol Story NP acetaminophen 500 mg PO Q6H PRN amlodipine 10 mg PO DAILY cyclobenzaprine 10 mg PO TID PRN lorazepam 0.5 mg PO BEDTIME PRN 30 days nicotine 1 patch transdermal Q24H sumatriptan succinate (Imitrex) take 1 tab at onset of headache; if no relief may repeat 1 tab after at least 2 hrs; max = 4 tabs/24 hr PO Do you need a note to return to daycare/school/sports/work: No HPI HPI Comments History of Present Illness Details 53 y/o female patient who presents to [facility] clinic with c/o body chills and nause x 3 days. PFSH Medical History COVID-19 virus infection Hypercholesterolemia Hypertension Tobacco abuse Anxiety Alcohol abuse Surgical History History of tubal ligation History of appendectomy Family History Father Diabetes Hypertension CVD (cardiovascular disease) Stroke Mother Diabetes Hypertension Cervical cancer Sister Uterine cancer Maternal Aunt Cervical cancer Social History Housing: House Alcohol intake: current Alcohol intake frequency: a few times a month Patient Tobacco Use Status: Current everyday Tobacco user Tobacco use type: Cigarette Cigarettes Per Day: 10 e-Cigarette/Vaping Use: Never Used Second Hand Smoke Exposure: No service: No Current occupational status: employed Current occupational exposures/hazards: No Cognitive needs: No Hearing needs: No Vision needs: No Review of Systems Const All systems reviewed & are unremarkable except as noted in HPI and below Physical Exam Vital Signs: Last Vital Signs Pulse 76 10/17/23 14:03 BP 138/70 10/17/23 14:03 Pulse Ox 95 10/17/23 14:03 Oxygen Delivery Method Room Air 10/17/23 14:03 BMI result Body Mass Index 21.4 Const General: comfortable and no acute distress HEENT Head: Yes normocephalic Ears: external ears normal and TM's normal bilaterally General nose exam: Normal nares present and Normal nasal mucous membranes and turbinates present Face and sinus: Yes sinuses nontender Mouth: Normal oral and palatal mucosa present Throat: Yes posterior oropharynx normal Resp Effort & Inspection: normal respiratory effort, no audible wheezes and no cough Auscultation: clear to auscultation bilaterally Cardio Rate: regular rate Rhythm: regular rhythm Assessment & Plan Assessment & Plan (1) Neck pain: Code(s): M54.2 - Cervicalgia Plan: - Take Acetaminophen for pain relief - Rest, heat/cold pads (2) Nausea: Code(s): R11.0 - Nausea Plan: - BLAND diet. - Gingerale Medications: New acetaminophen 500 mg PO Q6H PRN 30 caps 0RF fever M54.2 - Cervicalgia Coding Level of Care Code Est Pt Level 2 (15713) Diagnoses Neck pain M54.2 Nausea R11.0 Time Spent (min) 10
[2023-10-17 14:03] VITALS: BP 138/70; PULSE 76; O2SAT 95; BMI 21.4
== END 2023-10-17 15:05 | disposition home or self-care (01) ==
PROVIDERS: Visit Provider Nurse Practitioner Family
DX: M54.2 Cervicalgia (principal); R11.0 Nausea
CPT/HCPCS: 99213

== ENCOUNTER 2023-10-24 14:15 | Outpatient (AMB) | payer OTHER, SELFPAY ==
[2023-10-24 14:18] VITALS: BP 146/88; PULSE 63; O2SAT 100; BMI 21.3
--- NOTE | 2023-10-24 14:18 | MHC.PC.OV ---
Vital Signs 10/24/23 14:18 10/24/23 14:33 Height 5 ft 4 in Weight 124 lb 0.8 oz BMI 21.3 BP 146/88 H 130/80 Blood Pressure Location Lt brachial Lt brachial Position Sitting Sitting Pulse 63 Pulse Source Pulse Oximeter Pulse Oximetry (%) 100 Oxygen Delivery Method Room Air Intake Visit Reasons: Hypertension Intake Note: Patient is here to follow up on hypertension Registered Nurse Supervisor Required: No Allergies azithromycin [Zithromax Z-Issac] Allergy (Unknown, Verified 10/24/23 14:21) rash, hives lisinopril Allergy (Unknown, Verified 10/24/23 14:21) muscle cramps metoprolol Allergy (Unknown, Verified 10/24/23 14:21) bruises simvastatin Allergy (Unknown, Verified 10/24/23 14:21) face swelling Medication List - Last Reconciled 10/24/23 by Marzena Carmen MD acetaminophen 500 mg PO DAILY PRN amlodipine 10 mg PO DAILY atorvastatin 10 mg PO DAILY cyclobenzaprine 10 mg PO TID PRN lorazepam 0.5 mg PO BEDTIME PRN 30 days nicotine 1 patch transdermal Q24H sumatriptan succinate (Imitrex) take 1 tab at onset of headache; if no relief may repeat 1 tab after at least 2 hrs; max = 4 tabs/24 hr PO Tobacco use date assessed: 10/24/23 Dental Screening Dental Screen Date: 10/24/23 Did you have a dental visit in the last 12 months?: Yes Did you have a dental problem in the last 6 months where you did not have access to dental care?: No Was dental information given to patient?: Patient has dentist HPI Hypertension HPI Details 53-year-old female smoker with hypertension, hypercholesterolemia last seen September 2022 due to situational depression. Patient is here for follow-up. Review of the notes in October 17 urgent care visit due to chills nausea patient had a physical exam with the nurse practitioner in May 2023. Due to the smoking was referred to the thoracic surgeon for lung cancer screening. Noted blood work last year shows hypercholesterolemia. L elbow pain, manopausal symptom patient complains of left elbow pain with some numbness of the fingers but declined wanting to get tested. Patient also has pain on the right 3rd finger and getting stuck has done finger splints but has not work. PFSH Medical History COVID-19 virus infection Hypercholesterolemia Hypertension Tobacco abuse Anxiety Alcohol abuse Surgical History History of tubal ligation History of appendectomy Family History Father Diabetes Hypertension CVD (cardiovascular disease) Stroke Mother Diabetes Hypertension Cervical cancer Sister Uterine cancer Maternal Aunt Cervical cancer Social History Housing: House Alcohol intake: current Alcohol intake frequency: a few times a month Patient Tobacco Use Status: Current everyday Tobacco user Tobacco use type: Cigarette Cigarettes Per Day: 10 e-Cigarette/Vaping Use: Never Used Second Hand Smoke Exposure: No service: No Current occupational status: employed Current occupational exposures/hazards: No Cognitive needs: No Hearing needs: No Vision needs: No Questionnaire Thrive Questionnaire Date Thrive assessed: 06/25/23 AUDIT C Alcohol Use Questionnaire (AUDIT-C) 1. How often do you have a drink containing alcohol?: Never 2. How many drinks containing alcohol do you have on a typical day when you are drinking?: 1 or 2 3. How often do you have six or more drinks on one occasion?: Never Total Score: 0 Score Reviewed/Action Taken: Yes (reviewed, she reports not drinking every day. ) MACHO-7 AMB Questionnaire MACHO-7 Date MACHO - 7 assessed: 10/24/23 Source: Developed by Drs. Binu Calhoun, Savannah Calvillo, Melquiades Hale and colleagues, with an educational gallo from [employer] ([email or web address]). Physical exam (Primary Care) Vital Signs: Last Vital Signs Pulse 63 10/24/23 14:18 BP 146/88 H 10/24/23 14:18 Pulse Ox 100 10/24/23 14:18 Oxygen Delivery Method Room Air 10/24/23 14:18 BMI result Body Mass Index 21.3 Tobacco/Smoking Status: Tobacco use Status Tobacco use date assessed 10/24/23 10/24/23 14:23 Patient Tobacco Use Status Current everyday Tobacco 10/24/23 14:23 Tobacco use type Cigarette 10/24/23 14:23 e-Cigarette/Vaping Use Never Used 10/24/23 14:23 Thrive Assessment: Date of Thrive Assessment Date Thrive assessed 06/25/23 10/24/23 14:23 Const General: alert; No acute distress Eyes Conjunctivae: conjunctivae normal Resp Auscultation: clear to auscultation bilaterally Cardio Rate: regular rate Rhythm: regular rhythm GI Inspection: Yes normal to inspection Extrem General: Yes normal to inspection and No edema Assessment and Plan Assessment & Plan (1) Hypertension: Code(s): I10 - Essential (primary) hypertension Plan: Continue with blood pressure medication. Decrease salt intake and exercise patient on amlodipine 10 mg once a day (2) Tobacco abuse: Comment: discussed about smoking 09/2022 Code(s): Z72.0 - Tobacco use Plan: Stopped august last week!!! HAng in there! (3) Hypercholesterolemia: Code(s): E78.00 - Pure hypercholesterolemia, unspecified Plan: Avoid fried foods, chicken skin, eggs, butter margarine, pastries and meat. Be it pork or beef they have a lot of cholesterol LDL goal of less than 130 and triglyceride of less than 150 (4) Generalized anxiety disorder: Code(s): F41.1 - Generalized anxiety disorder Plan: Continue with present medication (5) Colon cancer screening: Code(s): Z12.11 - Encounter for screening for malignant neoplasm of colon Plan: Reminded about colonoscopy (6) Trigger finger of right hand: Code(s): M65.30 - Trigger finger, unspecified finger Plan: Discussed about conservative management of finger splints and referral to orthopedics done (7) Lateral epicondylitis of left elbow: Code(s): M77.12 - Lateral epicondylitis, left elbow Plan: Discussed about the activity of the left elbow causing the problem. Will see Orthopedics (8) Numbness of right hand: Code(s): R20.0 - Anesthesia of skin Plan: Discussed about conservative management of wearing left wrist brace to help treatment of the numbness. Orders: Orders Lipid Panel 3 Months E78.00 - Pure hypercholesterolemia, unspecified Comprehensive Met. Panel 3 Months E78.00 - Pure hypercholesterolemia, unspecified Referrals Orthopedics Referral M65.30 - Trigger finger, unspecified finger, M77.12 - Lateral epicondylitis, left elbow Medications: New atorvastatin 10 mg PO DAILY 30 tabs 4RF E78.00 - Pure hypercholesterolemia, unspecified Coding Level of Care Code Est Pt Level 4 (13242) Diagnoses Primary hypertension I10 Tobacco abuse Z72.0 Hypercholesterolemia E78.00 Generalized anxiety disorder F41.1 Colon cancer screening Z12.11 Trigger finger of right hand M65.30 Lateral epicondylitis of left elbow M77.12 Numbness of right hand R20.0
[2023-10-24 14:33] VITALS: BP 130/80
== END 2023-10-24 14:46 | disposition home or self-care (01) ==
PROVIDERS: PCP Internal Medicine; Visit Provider Internal Medicine
DX: I10 Essential (primary) hypertension (principal); Z72.0 Tobacco use; E78.00 Pure hypercholesterolemia, unspecified; F41.1 Generalized anxiety disorder; Z12.11 Encounter for screening for malignant neoplasm of colon; M65.30 Trigger finger, unspecified finger; M77.12 Lateral epicondylitis, left elbow; R20.0 Anesthesia of skin
CPT/HCPCS: 99214

== ENCOUNTER 2023-12-10 12:51 | Outpatient (AMB) | payer OTHER, SELFPAY ==
--- NOTE | 2023-12-10 13:09 | A.OFFVIS_ITS ---
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 Patient reports her finger has been locking and catching for about 2 months and is tender to the touch. States locking and catching is worse in the mornings. Denies injury. No previous tx. 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 She states she has locking and catching in her right middle finger for about 2 months. Her locking and catching is aggravated in the mornings and her finger is tender to touch. She denies any injury and has not had any previous treatment. [facility] Medical History COVID-19 virus infection Hypercholesterolemia Hypertension Tobacco abuse Anxiety Alcohol abuse Surgical History History of tubal ligation History of appendectomy Family History Father Diabetes Hypertension CVD (cardiovascular disease) Stroke Mother Diabetes Hypertension Cervical cancer Sister Uterine cancer Maternal Aunt Cervical cancer Social History (Updated 12/10/23 @ 13:19 by NOEMI Patel) Housing: House Alcohol intake: current Alcohol intake frequency: a few times a month Patient Tobacco Use Status: Current everyday Tobacco user Tobacco use type: Cigarette Cigarettes Per Day: 10 e-Cigarette/Vaping Use: Never Used Second Hand Smoke Exposure: No service: No Current occupational status: employed 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, 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 Current occupational exposures/hazards: No Cognitive needs: No Hearing needs: No Vision needs: No Review of Systems Const All systems reviewed & are unremarkable except as noted in HPI and below Physical Exam Vital Signs: BMI result Body Mass Index 21.3 Const General: cooperative, healthy appearing, comfortable, no acute distress, well developed and alert Orientation/consciousness: patient oriented x3 HEENT Head: Yes normal to inspection, Yes normocephalic and Yes atraumatic Eyes General: appearance normal, both eyes and all related structures Resp Effort & Inspection: normal respiratory effort and able to speak in complete sentences Cardio Rate: regular rate Peripheral pulses: Peripheral pulses 2+ throughout GI Palpation (GI): Soft to palpation Skin Lesions: no lesions Rashes: no rashes Neuro General: patient oriented x3 Extrem Other: Right middle finger: Tender nodule along the A1 gem with active catching and locking. NVI. Assessment & Plan Assessment & Plan (1) Trigger finger of right hand: Code(s): M65.30 - Trigger finger, unspecified finger Qualifiers: Trigger finger location: middle finger Qualified Code(s): M65.331 - Trigger finger, right middle finger Plan We discussed options which include conservative vs operative treatment. Since the patient has been symptomatic for several months and it is impacting their daily life, the decision was made to undergo Trigger release. We discussed risk, benefits and alternatives. Risk including but not limited to infection, stiffness, ongoing trigger or catching. She does understand all this and would like to proceed with right middle finger trigger release with Dr. Zimmer. She will be booked accordingly. Patient Instructions: Scribed for Carlos Power PA-C, by Frandy Pompa medical social worker, on 12/10/2023 at 1:00 PM EST. ICarlos PA-C, have personally reviewed and agree with the information entered by the scribe. Coding Level of Care Code New Pt Level 4 (86491) Diagnoses Trigger middle finger of right hand M65.331 Trigger finger location: middle finger
[2023-12-10 13:19] VITALS: BMI 21.3
== END 2023-12-10 13:42 | disposition home or self-care (01) ==
PROVIDERS: PCP Internal Medicine; Visit Provider Physician Assistant
DX: M65.331 Trigger finger, right middle finger (principal)
CPT/HCPCS: 99204

== ENCOUNTER → 2023-12-10 12:51 | Outpatient (BNVA) | payer OTHER, SELFPAY | PROVIDERS: PCP Internal Medicine; Visit Provider Physician Assistant ==

== ENCOUNTER 2024-01-30 14:04 | Outpatient (AMB) | payer OTHER, SELFPAY ==
[2024-01-30 14:05] VITALS: BP 148/90; PULSE 88; O2SAT 98; BMI 21.6
--- NOTE | 2024-01-30 14:05 | A.OFFPC_ITS ---
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 Required: No Allergies azithromycin [Zithromax Z-Issac] Allergy (Unknown, Verified 01/30/24 14:06) rash, hives lisinopril Allergy (Unknown, Verified 01/30/24 14:06) muscle cramps metoprolol Allergy (Unknown, Verified 01/30/24 14:06) bruises simvastatin Allergy (Unknown, Verified 01/30/24 14:06) face swelling Medication List - Last Reconciled 01/30/24 by Marzena Carmen, acetaminophen 500 mg PO DAILY PRN amlodipine 10 mg PO DAILY atorvastatin 10 mg PO DAILY blood pressure monitor (Blood Pressure Kit) As directed cyclobenzaprine 10 mg PO TID PRN lorazepam 0.5 mg PO BEDTIME PRN 30 days nicotine 1 patch transdermal Q24H sumatriptan succinate (Imitrex) take 1 tab at onset of headache; if no relief may repeat 1 tab after at least 2 hrs; max = 4 tabs/24 hr PO Tobacco use date assessed: 01/30/24 Dental Screening Dental Screen Date: 10/24/23 HPI 3 month f/u HPI Details 53-year-old female smoker with hypertens ion hypercholesterolemia generalized anxiety disorder coming in for follow-up. Last seen in September 2023. Patient's mammogram is up-to-date. Review of the notes patient has seen Orthopedics diagnosis of trigger finger and has been scheduled for surgical procedure. Patient has been advised to get blood work done for the terribly high cholesterol. I do not see the results. PFSH Medical History COVID-19 virus infection Hypercholesterolemia Hypertension Tobacco abuse Anxiety Alcohol abuse Surgical History History of tubal ligation History of appendectomy Family History Father Diabetes Hypertension CVD (cardiovascular disease) Stroke Mother Diabetes Hypertension Cervical cancer Sister Uterine cancer Maternal Aunt Cervical cancer Social History (Updated 12/10/23 @ 13:19 by Sarah Montano Renata) Housing: House Alcohol intake: current Alcohol intake frequency: a few times a month Patient Tobacco Use Status: Current everyday Tobacco user Tobacco use type: Cigarette Cigarettes Per Day: 10 e-Cigarette/Vaping Use: Never Used Second Hand Smoke Exposure: No service: No Current occupational status: employed 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 1. Little interest or pleasure in doing things: not at all 2. Feeling down, depressed, or hopeless: more than half the days 3. Trouble falling or staying asleep, or sleeping too much: several days (sleeping less ) 4. Feeling tired or having little energy: several days 5. Poor appetite or overeating: not at all 6. Feeling bad about yourself - or that you are a failure or have let yourself or your family down: several days 7. Trouble concentrating on things, such as reading the newspaper or watching television: several days 8. Moving or speaking so slowly that other people could have noticed. Or the opposite - being so fidgety or restless that you have been moving around a lot more than usual: not at all 9. Thoughts that you would be better off or of hurting yourself in some way: not at all Total score: 6 Depression Screening Interpretation: Negative Depression Screening Done: Yes 23322 - PHQ-9 Billing: Yes Source: Developed by Drs. Binu Calhoun, Savannah Calvillo, Melquiades Hale and colleagues, with an educational gallo from [employer]. Thrive Questionnaire Date Thrive assessed: 01/30/24 I am a: Patient What is your living situation today?: I have a steady place to live Within the past 12 months, did the food you bought not last and you didn't have the money to get more?: Never true Within the past 12 months, did you worry whether your food would run out before you got money to buy more?: Never true Do you have trouble paying for medicines?: No Do you have trouble getting transportation to medical appointments?: No Do you have trouble paying your heating and electricity bill?: No Do you have trouble taking care of your child, family member or friend?: No Do you have trouble with day-to-day activities such as bathing, preparing meals, shopping, managing finances, etc.?: No Are you currently unemployed and looking for a job?: No Are you interested in more education?: No Please select the resources that you would like help with: None Currently or been in a relationship where the following occur: no concerns reported THRIVE Score: 0 AUDIT C Alcohol Use Questionnaire (AUDIT-C) 1. How often do you have a drink containing alcohol?: Never 2. How many drinks containing alcohol do you have on a typical day when you are drinking?: 1 or 2 3. How often do you have six or more drinks on one occasion?: Never Total Score: 0 Score Reviewed/Action Taken: Yes (reviewed, she reports not drinking every day. ) MACHO-7 AMB Questionnaire MACHO-7 Date MACHO - 7 assessed: 10/24/23 Feeling nervous, anxious, or on edge: 0 = Not at all Not being able to stop or control worryin = Not at all Worrying too much about different things: 0 = Not at all Trouble relaxin = Not at all Being so restless that it is hard to sit still: 0 = Not at all Becoming easily annoyed or irritable: 0 = Not at all Feeling afraid as if something awful might happen: 0 = Not at all Total MACHO-7 score (0-4 normal; 5-9 mild; 10-14 moderate; 15-21 severe): 0 Source: Developed by Drs. Binu Calhoun, Savannah Calvillo, Melquiades Hale and colleagues, with an educational gallo from [employer]. MACHO-7 Assessment Billing MACHO-7 Assessment Tool: MAHCO-7 Assessment 48453 Physical exam (Primary Care) Vital Signs: Last Vital Signs Pulse 88 01/30/24 14:05 BP 148/90 H 01/30/24 14:05 Pulse Ox 98 01/30/24 14:05 Oxygen Delivery Method Room Air 01/30/24 14:05 BMI result Body Mass Index 21.6 Tobacco/Smoking Status: Tobacco use Status Tobacco use date assessed 01/30/24 01/30/24 14:07 Patient Tobacco Use Status Current everyday Tobacco 01/30/24 14:07 Tobacco use type Cigarette 01/30/24 14:07 e-Cigarette/Vaping Use Never Used 01/30/24 14:07 PHQ-9: PHQ-9 Score PHQ-9: Total score 6 01/30/24 14:11 Depression Screening Interpretation: Negative Thrive Assessment: Date of Thrive Assessment Date Thrive assessed 01/30/24 01/30/24 14:07 Currently or been in a relationship where the following occur: no concerns reported Const General: alert; No acute distress Eyes Conjunctivae: conjunctivae normal Resp Auscultation: clear to auscultation bilaterally Cardio Rate: regular rate Rhythm: regular rhythm GI Inspection: Yes normal to inspection Extrem General: Yes normal to inspection and No edema Assessment and Plan Assessment & Plan (1) Tobacco abuse: Comment: discussed about smoking 09/2022 Code(s): Z72.0 - Tobacco use Plan: Patient is strongly advised to stop smoking! (2) Hypertension: Code(s): I10 - Essential (primary) hypertension Plan: Continue with blood pressure medication. Decrease salt intake and exercise presently on amlodipine 10 mg once a day. Discussed my concerns about the blood pressure as it is high still. Advised to get blood pressure monitor and check it at home (3) Hypercholesterolemia: Code(s): E78.00 - Pure hypercholesterolemia, unspecified Plan: Avoid fried foods, chicken skin, eggs, butter margarine, pastries and meat. Be it pork or beef they have a lot of cholesterol LDL goal of less than 130 and triglyceride of less than 150. Patient was advised to get the blood work done. (4) Colon cancer screening: Code(s): Z12.11 - Encounter for screening for malignant neoplasm of colon Plan: Reminded about colonoscopy (5) Trigger finger of right hand: Code(s): M65.30 - Trigger finger, unspecified finger Qualifiers: Trigger finger location: middle finger Qualified Code(s): M65.331 - Trigger finger, right middle finger Plan: Patient has seen Orthopedics and planned surgery in January (6) Menopausal symptom: Code(s): N95.1 - Menopausal and female climacteric states Plan: Referral to Gynecology done (7) Generalized anxiety disorder: Comment: Declined counseling Code(s): F41.1 - Generalized anxiety disorder Plan: Declined counseling. Advised to start medication. 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 N95.1 - Menopausal and female climacteric states Medications: New blood pressure monitor (Blood Pressure Kit) As directed 1 ea 0RF I10 - Essential (primary) hypertension sertraline 25 mg PO DAILY 30 tabs 3RF F41.1 - Generalized anxiety disorder Refilled cyclobenzaprine 10 mg PO TID PRN 90 caps 0RF for cramps I10 - Essential (primary) hypertension Coding Level of Care Code Est Pt Level 4 (06770) Diagnoses Tobacco abuse Z72.0 Primary hypertension I10 Hypercholesterolemia E78.00 Colon cancer screening Z12.11 Trigger middle finger of right hand M65.331 Trigger finger location: middle finger Menopausal symptom N95.1 Generalized anxiety disorder F41.1 Additional Codes MACHO-7 Assessment Billing - MACHO-7 Assessment Tool: MACHO-7 Assessment 79243 ([id number])
== END 2024-01-30 14:41 | disposition home or self-care (01) ==
PROVIDERS: PCP Internal Medicine; Visit Provider Internal Medicine
DX: I10 Essential (primary) hypertension (principal); E78.00 Pure hypercholesterolemia, unspecified; Z12.11 Encounter for screening for malignant neoplasm of colon; M65.331 Trigger finger, right middle finger; N95.1 Menopausal and female climacteric states; F41.1 Generalized anxiety disorder; Z72.0 Tobacco use
CPT/HCPCS: 99214

== ENCOUNTER 2024-02-02 08:46 | Outpatient (REF) | payer OTHER, SELFPAY ==
[2024-02-02 10:15] LABS: Alanine Aminotransferase 22 U/L (0-31); Albumin Level 4.5 g/dL (3.5-5.0); Alkaline Phosphatase 130 U/L (39-117); Anion Gap 13 (12-20); Aspartate Amino Transferase 22 U/L (5-31); Bilirubin Total 0.4 mg/dL (0.0-1.0); Blood Urea Nitrogen 9 mg/dL (9-16); Carbon Dioxide 27 mmol/L (22-29); Chloride 106 mmol/L (96-108); Cholesterol 176 mg/dL (<200); Estimated Glomerular Filt Rate > 60; Glucose Random 97 mg/dL (60-115); HDL Cholesterol 52 mg/dL (>40); LDL Cholesterol Calculated 112 mg/dL (<100); Potassium 3.2 mmol/L (3.3-5.1); Sodium 143 mmol/L (135-145); Total Protein 7.8 g/dL (6.5-8.0); Triglycerides 61 mg/dL (<150)
== END 2024-02-02 08:47 | disposition home or self-care (01) ==
LOC: HO.LAB 08:46
PROVIDERS: PCP Internal Medicine; Visit Provider Internal Medicine
DX: E78.00 Pure hypercholesterolemia, unspecified (principal)
CPT/HCPCS: 36415; 80053; 80061

== ENCOUNTER 2024-02-03 09:37 | Outpatient (REF) | payer OTHER, SELFPAY ==
[2024-02-09 13:09] LABS: Aldosterone/Renin Ratio 5.2 Ratio (0.9-28.9); Plasma Renin Activity 1.16 ng/mL/h (0.25-5.82)
== END 2024-02-03 09:38 | disposition home or self-care (01) ==
LOC: HO.LAB 09:37
PROVIDERS: PCP Internal Medicine; Visit Provider Internal Medicine
DX: I10 Essential (primary) hypertension (principal)
CPT/HCPCS: 36415; 82088

== ENCOUNTER 2024-02-05 10:45 | Outpatient (REF) | payer OTHER, SELFPAY ==
--- NOTE | ~2024-02-05 | MM_ITS ---
EXAMINATION: MM DIAGNOSTIC DIGITAL BREAST TOMOSYNTHESIS, LEFT CLINICAL INFORMATION: Six-month follow-up left breast calcifications, 3 groups seen centrally, laterally, with a few subtle groups seen medially. COMPARISON: Mammography: 07/21/2023, 09/04/2021 (BI-RADS 3), 03/05/2021. TECHNIQUE: Digital breast tomosynthesis is performed in the following views: Spot magnification 2-D left MLO, and CC views, as well as full-field 3-D digital left CC, left MLO, and left ML views. Computer-aided diagnosis was used for this study. FINDINGS: There are scattered areas of fibroglandular density (ACR BI-RADS breast composition Category b). Several groups of calcifications in the left breast centrally, superiorly, and and medial posteriorly are entirely unchanged from prior exams, and also appear unchanged from exams dating back to 09/04/2020. No further follow-up recommended as these are benign with no aggressive changes noted. Oval density in the posterior medial CC projection is also unchanged, and known to represent a cyst. This is benign. No new abnormalities identified in the left breast. MM/MM tomosynthesis diagnostic LT IMPRESSION: There are stable benign findings in the left breast, including groups of calcifications which have been stable since 09/04/2021, and likely back to 2019. No further follow-up recommended. No findings suspicious for malignancy in the left breast. Recommend the patient return to routine screening to include both breasts in June 2024. ASSESSMENT: BI-RADS BI-RADS 2 - Benign Findings RECOMMENDATION: 1 year F/U Results were provided to the patient at time of visit by the technologist. This patient's information was entered into a reminder system with a target due date for their next mammogram.
== END 2024-02-05 10:46 | disposition home or self-care (01) ==
LOC: HO.MAMMO 10:45
PROVIDERS: PCP Internal Medicine; Visit Provider Internal Medicine
DX: R92.1 Mammographic calcification found on diagnostic imaging of breast (principal)
CPT/HCPCS: 77061; 77065

== ENCOUNTER → 2024-02-05 11:00 | Outpatient (BNV) | payer OTHER, SELFPAY | PROVIDERS: PCP Internal Medicine; Visit Provider Radiology Diagnostic Radiology | DX: R92.1 Mammographic calcification found on diagnostic imaging of breast (principal) | CPT/HCPCS: 77061; 77065 ==

== ENCOUNTER 2024-02-09 14:10 | Outpatient (AMB) | payer OTHER, SELFPAY ==
[2024-02-09 14:10] VITALS: BP 110/76; PULSE 115; O2SAT 97; BMI 22.5
--- NOTE | 2024-02-09 14:10 | HO.NEPHOV_ITS ---
Vital Signs 02/09/24 14:10 Height 5 ft 4 in Weight 131 lb BMI 22.5 BP 110/76 Blood Pressure Location Lt brachial Position Sitting Pulse 115 H Pulse Source Pulse Oximeter Pulse Oximetry (%) 97 Oxygen Delivery Method Room Air Intake Visit Reasons: Hypokalemia/ LVM Credit Interviewer Required: No Accompanied by: Spouse Allergies azithromycin [Zithromax Z-Issac] Allergy (Unknown, Verified 02/09/24 14:13) rash, hives lisinopril Allergy (Unknown, Verified 02/09/24 14:13) muscle cramps metoprolol Allergy (Unknown, Verified 02/09/24 14:13) bruises simvastatin Allergy (Unknown, Verified 02/09/24 14:13) face swelling HPI Comments Details: Angella is a pleasant 53-year-old woman with a history of hypertension. She has been referred for hypokalemia. Recently potassium was 3.2 mg/dL she was given potassium supplementation for a week which she has completed. Prior to this 6 months ago potassium was in normal range. About a year ago she had an episode of hypokalemia also which was treated with potassium supplementation. She denies taking any diuretics. She has no history of in diarrhea. She was on amlodipine 5 mg dose has been increased to 10 mg recently. Overall blood pressure has been well controlled. She is history of cough due to lisinopril therefore she has not on any EMIL inhibitors. She is history of smoking for many years she quit smoking about a week ago. She smoked up to 1 pack a day. 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 No history of unexplained sweating or palpitations. No edema. No urinary symptoms. No weight loss No fever All systems were reviewed [facility] Medical History COVID-19 virus infection Hypercholesterolemia Hypertension Tobacco abuse Anxiety Alcohol abuse Surgical History History of tubal ligation History of appendectomy Family History Father Diabetes Hypertension CVD (cardiovascular disease) Stroke Mother Diabetes Hypertension Cervical cancer Sister Uterine cancer Maternal Aunt Cervical cancer Social History Housing: House Alcohol intake: current Alcohol intake frequency: a few times a month Patient Tobacco Use Status: Current everyday Tobacco user Tobacco use type: Cigarette Cigarettes Per Day: 10 e-Cigarette/Vaping Use: Never Used Second Hand Smoke Exposure: No service: No Current occupational status: employed 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 Heart rate was 120 per Const General: comfortable Nutritional Appearance: well nourished Orientation/consciousness: patient oriented x3 HEENT Head: No normal to inspection Mouth: moist mucous membranes Neck Neck: Yes supple and Yes no JVD Resp Auscultation: clear to auscultation bilaterally, no rales and rub present Cardio Jugular venous distension: no JVD Palpation: no palpable S3 and no palpable S4 Heart sounds: no rubs GI Palpation (GI): Soft to palpation and nontender Percussion: No Fluid wave present General: Yes no CVA tenderness Back/Spine/Pelvis Back: no CVA tenderness Skin General skin exam: no rashes or lesions noted Neuro General: patient oriented x3 Extrem General: Yes no pedal edema and No clubbing Results Reviewed Nephrology Results: Sodium 143 mmol/L (135-145) 02/02/24 Potassium 3.2 mmol/L (3.3-5.1) L 02/02/24 Chloride 106 mmol/L (96-108) 02/02/24 Carbon Dioxide 27 mmol/L (22-29) 02/02/24 BUN 9 mg/dL (9-16) 02/02/24 Creatinine 0.82 mg/dL (0.5-1.4) 02/02/24 Calcium 10.0 mg/dL (8.4-10.2) 02/02/24 Assessment & Plan Assessment & Plan (1) Hypokalemia: Code(s): E87.6 - Hypokalemia Category: Medical Plan 53-year-old woman with a history of hypertension and hypokalemia. She had not on any diuretics. No significant alkalosis. Recent plasma aldosterone level was normal at 6 with a PA/PRA ratio of 5.2. She has reflux tachycardia most likely due to calcium channel carol/amlodipine Workup initiated for hyperkalemia including a 24 urine collection. First step was to distinguish between renal and extrarenal loss of potassium. Repeat serum lytes ordered. Due to reflex tachycardia we will decrease amlodipine from 10 mg down to 5 mg. If she remains tachycardic, she will benefit from a beta-carol. Return to clinic in 1 week after basic workup is completed. I will keep you updated Orders: Orders Sodium, 24Hr Urine Group Today E87.6 - Hypokalemia Basic Metabolic Panel Today E87.6 - Hypokalemia Creatinine Urine Today E87.6 - Hypokalemia, N05.9 - Unspecified nephritic syndrome with unspecified morphologic changes Potassium 24 Hr Urine Group Today E87.6 - Hypokalemia Coding Level of Care Code New Pt Level 4 (18101) Diagnoses Hypokalemia E87.6
== END 2024-02-09 14:37 | disposition home or self-care (01) ==
PROVIDERS: PCP Internal Medicine; Visit Provider Internal Medicine Hypertension Specialist
DX: E87.6 Hypokalemia (principal)
CPT/HCPCS: 99204

== ENCOUNTER → 2024-02-09 14:10 | Outpatient (BNVA) | payer OTHER, SELFPAY | PROVIDERS: PCP Internal Medicine; Visit Provider Internal Medicine Hypertension Specialist ==

== ENCOUNTER 2024-02-12 12:47 | Outpatient (REF) | payer OTHER, SELFPAY ==
[2024-02-12 14:43] LABS: Anion Gap 13 (12-20); Blood Urea Nitrogen 12 mg/dL (9-16); Calcium 9.3 mg/dL (8.4-10.2); Carbon Dioxide 26 mmol/L (22-29); Chloride 106 mmol/L (96-108); Estimated Glomerular Filt Rate > 60; Glucose Random 73 mg/dL (60-115); Potassium 3.7 mmol/L (3.3-5.1); Sodium 141 mmol/L (135-145)
[2024-02-12 15:27] LABS: Creatinine, mg/dL 51.05
[2024-02-12 15:55] LABS: Creatinine, 24Hr Urine 0.7 G/Day (1.0-2.0); Potassium, 24 Hr Urine 37.7 mmol/Day (25-125); Sodium 24 Hr Urine 72.8 mmol/Day (40-220); Total Volume 24 Hour Urine 1300 mL
== END 2024-02-12 12:48 | disposition home or self-care (01) ==
LOC: HO.LAB 12:47
PROVIDERS: PCP Internal Medicine; Visit Provider Internal Medicine Hypertension Specialist
DX: E87.6 Hypokalemia (principal)
CPT/HCPCS: 36415; 80048; 84133; 84300

== ENCOUNTER 2024-02-16 11:42 | Day surgery (SDC) | payer OTHER, SELFPAY ==
[2024-02-16 12:24] VITALS: BP 129/74; PULSE 100; RESP 18; TEMP 36.8; O2SAT 99; BMI 22.3
--- NOTE | 2024-02-16 12:44 | MHC.SHP ---
Pre-Procedural Eval Section A - 24 Hr Update-Section A only Date of Service: 02/16/24 The patient is an INPATIENT: No Changes since office visit: No Cold of Flu in the past 2 weeks, No New Medical Problems, No Changes in Medication and No Patient answered all questions The patient has been examined within 24 hours of the surgical procedure. The History & Physical has been completed within 30 days and I have reviewed it.: Yes Section B - Complete if H&P > 30 days Chief Complaint: Trigger finger, right middle finger Allergies: Allergies Allergy/AdvReac Type Severity Reaction Status Date / Time azithromycin Allergy Unknown rash, hives Verified 02/16/24 12:26 [Zithromax Z-Issac] lisinopril Allergy Unknown muscle Verified 02/16/24 12:26 cramps metoprolol Allergy Unknown bruises Verified 02/16/24 12:26 simvastatin Allergy Unknown face Verified 02/16/24 12:26 swelling Exam Exam Comment: Middle finger trigger finger Plan Diagnosis/Plan: Unchanged I have reviewed the history and physical and performed a pertinent physical examination on my patient. No changes have occurred unless specified. Time Spent With Patient Time: Total time managing care of this patient today ____ minutes.
--- NOTE | 2024-02-16 12:45 | W.PM.OPN ---
Operative Note Operative Note Date of Service: 02/16/24 Narrative: Operative Note Preop diagnosis: 1. Right middle finger Trigger finger Postop diagnosis: 1. Right middle finger Trigger finger Procedure: 1. Right middle finger A1 gem release Surgeon: Tracy Zimmer MD Anesthesia: local block using 1% lidocaine with epinephrine Findings: No locking or catching after A1 gem release EBL: Less than 5 mL Tourniquet time: None Specimens: None Complications: None Disposition: Brought to recovery room in stable condition Plan: Follow-up for 10-14 days for wound check and suture removal Indications: The patient is 53 years old, with a right middle finger trigger finger that has been unresponsive to nonoperative management. The risks and benefits of operative treatment including but not limited to risk of damage to blood vessels, nerves, tendons, infection, persistent pain, persistent symptoms, recurrence or possible need for additional surgery were discussed with the patient and the patient wishes to proceed with surgery. Procedure: Once consent was obtained a local block was performed in the preop area using a combination of 1% lidocaine with epinephrine. The patient was then brought back to the operating suite and placed on the operative table in supine position. The right upper extremity was prepped and draped in a standard surgical fashion. Once assured that we had a good block, a 1.5 cm oblique incision was made centered over the A1 gem of the [ ] . The incision was made through the skin to the subcutaneous tissues using a #15 blade. Careful dissection was made down to the level of the A1 gem using tenotomy scissors, with care being taken to protect the nearby neurovascular structures. A longitudinal incision was made in the A1 gem 1st using a #15 blade, then using tenotomy scissors under direct visualization. The A1 gem was noted to be thickened. Following our A1 gem release, we no longer saw any locking or catching of the digit with flexion and extension. Once satisfied with our A1 gem release the wound was copiously irrigated with normal saline and hemostasis was obtained with a brief period of local pressure. The skin edges were reapproximated with some 5.0 nylon suture material and a sterile dressing was applied. The patient appears to have tolerated the procedure well and with no complications. All digits were well vascularized at the conclusion of the case.
[2024-02-16 14:02] VITALS: BP 126/79; PULSE 99; RESP 12; O2SAT 100
== END 2024-02-16 13:35 | disposition home or self-care (01) ==
PROVIDERS: PCP Internal Medicine; Visit Provider Orthopaedic Surgery
PROC: (CPT 26055; principal; 2024-02-16 12:10)
DX: M65.331 Trigger finger, right middle finger (principal); I10 Essential (primary) hypertension; E78.00 Pure hypercholesterolemia, unspecified; F41.9 Anxiety disorder, unspecified; F10.10 Alcohol abuse, uncomplicated; Z88.1 Allergy status to other antibiotic agents; Z88.8 Allergy status to other drugs, medicaments and biological substances; F17.210 Nicotine dependence, cigarettes, uncomplicated
CPT/HCPCS: 26055; J0171

== ENCOUNTER → 2024-02-16 11:42 | Outpatient (BNV) | payer OTHER, SELFPAY | PROVIDERS: PCP Internal Medicine; Visit Provider Orthopaedic Surgery | DX: M65.331 Trigger finger, right middle finger (principal) | CPT/HCPCS: 26055 ==

== ENCOUNTER 2024-02-17 11:21 | Outpatient (AMB) | payer OTHER, SELFPAY ==
[2024-02-17 11:30] VITALS: BP 140/66; PULSE 115; O2SAT 99; BMI 22.0
--- NOTE | 2024-02-17 11:30 | HO.NEPHOV ---
Vital Signs 02/17/24 11:30 Height 5 ft 4 in Weight 128 lb BMI 22.0 BP 140/66 H Blood Pressure Location Rt brachial Position Sitting Pulse 115 H Pulse Source Pulse Oximeter Pulse Oximetry (%) 99 Oxygen Delivery Method Room Air Intake Visit Reasons: Hypokalemia/ 1 week fu/ Confirmed Hospice Chaplain Required: No Accompanied by: Self / Same As Patient Allergies azithromycin [Zithromax Z-Issac] Allergy (Unknown, Verified 02/17/24 11:31) rash, hives lisinopril Allergy (Unknown, Verified 02/17/24 11:31) muscle cramps metoprolol Allergy (Unknown, Verified 02/17/24 11:31) bruises simvastatin Allergy (Unknown, Verified 02/17/24 11:31) face swelling Medication List - Last Reconciled 02/17/24 by Jerrell Waterman MD acetaminophen 500 mg PO DAILY PRN amlodipine 5 mg PO DAILY atorvastatin 10 mg PO DAILY blood pressure monitor (Blood Pressure Kit) As directed cyclobenzaprine 10 mg PO TID PRN lorazepam 0.5 mg PO BEDTIME PRN 30 days nicotine 1 patch transdermal Q24H oxycodone-acetaminophen 5-325 mg 1 tab PO Q6H PRN sertraline 25 mg PO DAILY sumatriptan succinate (Imitrex) take 1 tab at onset of headache; if no relief may repeat 1 tab after at least 2 hrs; max = 4 tabs/24 hr PO HPI Comments Details: Angella is a pleasant 53-year-old woman with a history of hypertension. She has been referred for hypokalemia. Recently potassium was 3.2 mg/dL she was given potassium supplementation for a week which she has completed. Prior to this 6 months ago potassium was in normal range. About a year ago she had an episode of hypokalemia also which was treated with potassium supplementation. She denies taking any diuretics. She has no history of in diarrhea. She was on amlodipine 5 mg dose has been increased to 10 mg recently. Overall blood pressure has been well controlled. She is history of cough due to lisinopril therefore she has not on any EMIL inhibitors. She is history of smoking for many years she quit smoking about a week ago. She smoked up to 1 pack a day. 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 No history of unexplained sweating or palpitations. No edema. No urinary symptoms. No weight loss No fever All systems were reviewed 02/17/2024. Accompanied by daughter. She is cut down on amlodipine. Still has tachycardia. She drinks about 3 cups of coffee in the morning. Underwent surgery for trigger finger on the right hand [facility] Medical History COVID-19 virus infection Hypercholesterolemia Hypertension Tobacco abuse Anxiety Alcohol abuse Surgical History History of tubal ligation History of appendectomy Family History Father Diabetes Hypertension CVD (cardiovascular disease) Stroke Mother Diabetes Hypertension Cervical cancer Sister Uterine cancer Maternal Aunt Cervical cancer Social History Housing: House Alcohol intake: current Alcohol intake frequency: a few times a month Patient Tobacco Use Status: Former Tobacco user Tobacco use type: Cigarette Cigarettes Per Day: 10 e-Cigarette/Vaping Use: Never Used Second Hand Smoke Exposure: No service: No Current occupational status: employed 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 Heart rate was 120 per Const General: comfortable Nutritional Appearance: well nourished Orientation/consciousness: patient oriented x3 HEENT Head: No normal to inspection Mouth: moist mucous membranes Neck Neck: Yes supple and Yes no JVD Resp Auscultation: clear to auscultation bilaterally, no rales and rub present Cardio Jugular venous distension: no JVD Palpation: no palpable S3 and no palpable S4 Heart sounds: no rubs GI Palpation (GI): Soft to palpation and nontender Percussion: No Fluid wave present General: Yes no CVA tenderness Back/Spine/Pelvis Back: no CVA tenderness Skin General skin exam: no rashes or lesions noted Neuro General: patient oriented x3 Extrem General: Yes no pedal edema and No clubbing Results Reviewed Nephrology Results: Sodium 141 mmol/L (135-145) 02/12/24 Potassium 3.7 mmol/L (3.3-5.1) 02/12/24 Chloride 106 mmol/L (96-108) 02/12/24 Carbon Dioxide 26 mmol/L (22-29) 02/12/24 BUN 12 mg/dL (9-16) 02/12/24 Creatinine 0.81 mg/dL (0.5-1.4) 02/12/24 Calcium 9.3 mg/dL (8.4-10.2) 02/12/24 Assessment & Plan Assessment & Plan (1) Hypokalemia: Code(s): E87.6 - Hypokalemia Category: Medical Plan 53-year-old woman with a history of hypertension and hypokalemia. She had not on any diuretics. No significant alkalosis. Recent plasma aldosterone level was normal at 6 with a PA/PRA ratio of 5.2. She has reflex tachycardia most likely due to calcium channel carol/amlodipine Repeat potassium low is normal renal function is normal. Due to reflex tachycardia we will stop amlodipine 5 mg. Add labetalol 100 mg p.o. b.i.d. and watch heart rate. Encouraged her to cut back on excessive coffee intake. Orders: Orders Basic Metabolic Panel 2 Weeks E87.6 - Hypokalemia Medications: New labetalol 100 mg PO BID 60 tabs 0RF Coding Level of Care Code Est Pt Level 4 (04147) Diagnoses Hypokalemia E87.6
== END 2024-02-17 11:46 | disposition home or self-care (01) ==
PROVIDERS: PCP Internal Medicine; Visit Provider Internal Medicine Hypertension Specialist
DX: E87.6 Hypokalemia (principal)
CPT/HCPCS: 99214

== ENCOUNTER → 2024-02-17 11:21 | Outpatient (BNVA) | payer OTHER, SELFPAY | PROVIDERS: PCP Internal Medicine; Visit Provider Internal Medicine Hypertension Specialist ==

== ENCOUNTER 2024-02-26 10:46 | Outpatient (AMB) | payer OTHER, SELFPAY ==
[2024-02-26 11:02] VITALS: BP 140/90; PULSE 96; TEMP 36.2; O2SAT 99; BMI 22.5
--- NOTE | 2024-02-26 11:02 | AM.OFFWIN_ITS ---
Intake Vital Signs 02/26/24 11:02 Height 5 ft 4 in Weight 131 lb BMI 22.5 BP 140/90 H Blood Pressure Location Lt brachial Position Sitting Pulse 96 Pulse Source Pulse Oximeter Temp 97.2 F Temp Source Temporal Artery Scan Pulse Oximetry (%) 99 Oxygen Delivery Method Room Air Intake Visit Reasons: EP Allergic reaction/rash Intake Note: pt is here today for allergic reaction and rash started today Patient Tobacco Use Status: Former Tobacco user Allergies azithromycin [Zithromax Z-Issac] Allergy (Unknown, Verified 02/26/24 11:14) rash, hives lisinopril Allergy (Unknown, Verified 02/26/24 11:14) muscle cramps metoprolol Allergy (Unknown, Verified 02/26/24 11:14) bruises simvastatin Allergy (Unknown, Verified 02/26/24 11:14) face swelling amlodipine Adverse Reaction (Intermediate, Verified 02/26/24 11:14) Reflex tachycardia Do you need a note to return to daycare/school/sports/work: No HPI HPI Comments History of Present Illness Details 53 y/o female patient who presents to [facility] clinic with c/o hives covering her entire body. Pt woke-up this morning and noticed the rash/hives that is spreading. Reports had her BP medication changed to labetalol 2 weeks. Denies any changes to diet, cosmetic products or detergent. PFS Medical History COVID-19 virus infection Hypercholesterolemia Hypertension Tobacco abuse Anxiety Alcohol abuse Surgical History History of tubal ligation History of appendectomy Family History Father Diabetes Hypertension CVD (cardiovascular disease) Stroke Mother Diabetes Hypertension Cervical cancer Sister Uterine cancer Maternal Aunt Cervical cancer Social History Housing: House Alcohol intake: current Alcohol intake frequency: a few times a month Patient Tobacco Use Status: Former Tobacco user Tobacco use type: Cigarette Cigarettes Per Day: 10 e-Cigarette/Vaping Use: Never Used Second Hand Smoke Exposure: No service: No Current occupational status: employed 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, 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 Resp Effort & Inspection: normal respiratory effort and able to speak in complete sentences Auscultation: clear to auscultation bilaterally Skin Other: The entire body covered with erythematous hives Neuro General: patient oriented x3, gait normal and moves all extremities Psych Speech and movement: Normal speech and movement present Assessment & Plan Assessment & Plan (1) Acute urticaria: Code(s): L50.8 - Other urticaria Plan: - RTC if symptoms worse. Medications: New prednisone 50 mg PO DAILY 5 tabs 1RF 5 days L50.8 - Other urticaria triamcinolone acetonide 0.1% 1 appl topical BID 454 grams 0RF L50.8 - Other urticaria hydroxyzine HCl 25 mg PO TID 60 tabs 0RF L50.8 - Other urticaria Discontinued labetalol Discontinued Reason: Doctor's Order 100 mg PO BID 60 tabs 0RF Coding Level of Care Code Est Pt Level 3 (41372) Diagnoses Acute urticaria L50.8 Time Spent (min) 15
== END 2024-02-26 11:58 | disposition home or self-care (01) ==
PROVIDERS: PCP Internal Medicine; Visit Provider Nurse Practitioner Family
DX: L50.8 Other urticaria (principal)
CPT/HCPCS: 99213

== ENCOUNTER 2024-03-02 12:09 | Outpatient (AMB) | payer OTHER, SELFPAY ==
--- NOTE | 2024-03-02 12:12 | MHC.OFFVIS ---
Vital Signs 03/02/24 12:14 Height 5 ft 4 in Weight 131 lb BMI 22.5 Intake Visit Reasons: PO RT MF trigger 02/16/24 AR Intake Note: Angella 53 yr old presents today for her PO RT MF trigger 02/16/24 AR. States locking of finger has resolved and had no additional concerns. Sutures removed and steri strips applied in office. Allergies azithromycin [Zithromax Z-Issac] Allergy (Unknown, Verified 03/02/24 12:20) rash, hives lisinopril Allergy (Unknown, Verified 03/02/24 12:20) muscle cramps metoprolol Allergy (Unknown, Verified 03/02/24 12:20) bruises simvastatin Allergy (Unknown, Verified 03/02/24 12:20) face swelling amlodipine Adverse Reaction (Intermediate, Verified 03/02/24 12:20) Reflex tachycardia HPI HPI PO RT MF trigger 02/16/24 AR: Details: Angella is a 53 year old 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 woman who presents S/P right middle finger trigger release, DOS: 02/16/24. She says she is doing well and says her locking & catching have resolved. She is happy with the results of her surgery. PFSH Medical History COVID-19 virus infection Hypercholesterolemia Hypertension Tobacco abuse Anxiety Alcohol abuse Surgical History History of tubal ligation History of appendectomy Family History Father Diabetes Hypertension CVD (cardiovascular disease) Stroke Mother Diabetes Hypertension Cervical cancer Sister Uterine cancer Maternal Aunt Cervical cancer Social History Housing: House Alcohol intake: current Alcohol intake frequency: a few times a month Patient Tobacco Use Status: Former Tobacco user Tobacco use type: Cigarette Cigarettes Per Day: 10 e-Cigarette/Vaping Use: Never Used Second Hand Smoke Exposure: No service: No Current occupational status: employed 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 Sutures removed and Steri-Strips applied She can make a fist and extend al her digits No locking or catching Sensation is intact Cap refill is brisk Psych Appearance: grossly normal Affect: normal affect Attitude: cooperative Assessment & Plan Assessment & Plan (1) Trigger finger of right hand: Code(s): M65.30 - Trigger finger, unspecified finger Category: Medical Qualifiers: Trigger finger location: middle finger Qualified Code(s): M65.331 - Trigger finger, right middle finger Plan Assessment & Plan: 1. Right middle finger trigger finger, S/P release DOS: 02/16/24 The patient appears to be doing well post-operatively I educated her about the post-operative course I discussed activity modifications, she is to lift nothing heavier than a cellphone for the next two weeks She will perform gentle ROM exercises at home She should avoid any underwater activities for the next 5 days She should gently massage about the incision site to reduce the risk of hypersensitivity She can follow up prn Scribed for Tracy Zimmer MD by Neno Ovalles, general medical practitioner, on 03/02/24 at 12:25 PM, EST. Coding Level of Care Code Global (87832) Diagnoses Trigger middle finger of right hand M65.331 Trigger finger location: middle finger
[2024-03-02 12:14] VITALS: BMI 22.5
== END 2024-03-02 12:27 | disposition home or self-care (01) ==
PROVIDERS: PCP Internal Medicine; Visit Provider Orthopaedic Surgery
DX: M65.331 Trigger finger, right middle finger (principal)
CPT/HCPCS: 99024

== ENCOUNTER → 2024-03-02 12:09 | Outpatient (BNVA) | payer OTHER, SELFPAY | PROVIDERS: PCP Internal Medicine; Visit Provider Orthopaedic Surgery ==

== ENCOUNTER 2024-04-19 11:54 | Outpatient (REF) | payer OTHER, SELFPAY ==
[2024-04-19 12:56] LABS: Creatinine Urine 88.99 mg/dL
[2024-04-19 13:18] LABS: Anion Gap 12 (12-20); Blood Urea Nitrogen 12 mg/dL (9-16); Carbon Dioxide 27 mmol/L (22-29); Chloride 108 mmol/L (96-108); Estimated Glomerular Filt Rate > 60; Glucose Random 85 mg/dL (60-115); Potassium 3.5 mmol/L (3.3-5.1); Sodium 143 mmol/L (135-145)
== END 2024-04-19 11:55 | disposition home or self-care (01) ==
LOC: HO.LAB 11:54
PROVIDERS: Internal Medicine Hypertension Specialist; PCP Internal Medicine; Visit Provider Psychiatry & Neurology Neurology
DX: N05.9 Unspecified nephritic syndrome with unspecified morphologic changes (principal); E87.6 Hypokalemia
CPT/HCPCS: 36415; 80048; 82570

== ENCOUNTER 2024-04-20 13:02 | Outpatient (AMB) | payer OTHER, SELFPAY ==
[2024-04-20 13:05] VITALS: BP 156/74; PULSE 102; O2SAT 99; BMI 22.5
--- NOTE | 2024-04-20 13:05 | HO.NEPHOV_ITS ---
Vital Signs 04/20/24 13:05 Height 5 ft 4 in Weight 131 lb BMI 22.5 BP 156/74 H Blood Pressure Location Lt brachial Position Sitting Pulse 102 H Pulse Source Pulse Oximeter Pulse Oximetry (%) 99 Oxygen Delivery Method Room Air Intake Visit Reasons: R/S 03/17/2024/ Conf Windshield Technician Required: No Accompanied by: Spouse Allergies azithromycin [Zithromax Z-Issac] Allergy (Unknown, Verified 04/20/24 13:07) rash, hives lisinopril Allergy (Unknown, Verified 04/20/24 13:07) muscle cramps metoprolol Allergy (Unknown, Verified 04/20/24 13:07) bruises simvastatin Allergy (Unknown, Verified 04/20/24 13:07) face swelling amlodipine Adverse Reaction (Intermediate, Verified 04/20/24 13:07) Reflex tachycardia HPI Comments Details: Angella is a pleasant 53-year-old woman with a history of hypertension. She has been referred for hypokalemia. Recently potassium was 3.2 mg/dL she was given potassium supplementation for a week which she has completed. Prior to this 6 months ago potassium was in normal range. About a year ago she had an episode of hypokalemia also which was treated with potassium supplementation. She denies taking any diuretics. She has no history of in diarrhea. She was on amlodipine 5 mg dose has been increased to 10 mg recently. Overall b lood pressure has been well controlled. She is history of cough due to lisinopril therefore she has not on any EMIL inhibitors. She is history of smoking for many years she quit smoking about a week ago. She smoked up to 1 pack a day. 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 No history of unexplained sweating or palpitations. No edema. No urinary symptoms. No weight loss No fever All systems were reviewed 02/17/2024. Accompanied by daughter. She is cut down on amlodipine. Still has tachycardia. She drinks about 3 cups of coffee in the morning. Underwent surgery for trigger finger on the right hand 04/20/2024. She was given labetalol 100 mg twice a day last visit. She had developed a rash in therefore this was switched to hydralazine 25 mg twice a day. Blood pressure is suboptimal. She continues to have some rash. [facility] Medical History COVID-19 virus infection Hypercholesterolemia Hypertension Tobacco abuse Anxiety Alcohol abuse Surgical History History of tubal ligation History of appendectomy Family History Father Diabetes Hypertension CVD (cardiovascular disease) Stroke Mother Diabetes Hypertension Cervical cancer Sister Uterine cancer Maternal Aunt Cervical cancer Social History Housing: House Alcohol intake: current Alcohol intake frequency: a few times a month Patient Tobacco Use Status: Former Tobacco user Tobacco use type: Cigarette Cigarettes Per Day: 10 e-Cigarette/Vaping Use: Never Used Second Hand Smoke Exposure: No service: No Current occupational status: employed 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, 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 Current occupational exposures/hazards: No Cognitive needs: No Hearing needs: No Vision needs: No Physical Exam Vital Signs: Last Vital Signs Pulse 102 H 04/20/24 13:05 BP 156/74 H 04/20/24 13:05 Pulse Ox 99 04/20/24 13:05 Oxygen Delivery Method Room Air 04/20/24 13:05 BMI result Body Mass Index 22.5 Const General: comfortable; No acute distress Orientation/consciousness: patient oriented x3 Eyes General: appearance normal, both eyes and all related structures Visual Peralta: normal visual peralta by confrontation Neck Neck: Yes supple and Yes no JVD Resp Effort & Inspection: normal respiratory effort and respiratory effort not decreased Auscultation: rhonchi Cardio Palpation: no palpable S3 and no palpable S4 Heart sounds: no rubs GI Inspection: Yes normal to inspection Palpation (GI): Soft to palpation Percussion: Yes normal to percussion Auscultation: normal bowel sounds General: Yes no CVA tenderness Back/Spine/Pelvis Back: no CVA tenderness Skin General skin exam: no petechiae and no purpura Neuro General: patient oriented x3 and no focal motor deficits Extrem General: No clubbing and No edema Results Reviewed Nephrology Results: Sodium 143 mmol/L (135-145) 04/19/24 Potassium 3.5 mmol/L (3.3-5.1) 04/19/24 Chloride 108 mmol/L (96-108) 04/19/24 Carbon Dioxide 27 mmol/L (22-29) 04/19/24 BUN 12 mg/dL (9-16) 04/19/24 Creatinine 0.82 mg/dL (0.5-1.4) 04/19/24 Calcium 10.0 mg/dL (8.4-10.2) 04/19/24 Urine Creatinine 88.99 mg/dL 04/19/24 Assessment & Plan Assessment & Plan (1) Hypokalemia: Code(s): E87.6 - Hypokalemia Category: Medical Plan 53-year-old woman with a history of hypertension and hypokalemia. She had not on any diuretics. No significant alkalosis. Recent plasma aldosterone level was normal at 6 with a PA/PRA ratio of 5.2. She has reflex tachycardia most likely due to calcium channel carol/amlodipine Repeat potassium low is normal renal function is normal. Discontinue hydralazine Start carvedilol 6.5 mg b.i.d. and titrate the dose upwards. This should help to lower the heart rate as well. Medications: New carvedilol (Coreg) must administer with a meal/food 6.25 mg PO BID 60 tabs 0RF Discontinued prednisone Discontinued Reason: Doctor's Order 50 mg PO DAILY 5 days 5 tabs 1RF L50.8 - Other urticaria hydralazine Discontinued Reason: Doctor's Order 25 mg PO BID 180 tabs 2RF Coding Level of Care Code Est Pt Level 4 (07530) Diagnoses Hypokalemia E87.6
== END 2024-04-20 13:27 | disposition home or self-care (01) ==
PROVIDERS: PCP Internal Medicine; Visit Provider Internal Medicine Hypertension Specialist
DX: E87.6 Hypokalemia (principal)
CPT/HCPCS: 99214

== ENCOUNTER → 2024-04-20 13:02 | Outpatient (BNVA) | payer OTHER, SELFPAY | PROVIDERS: PCP Internal Medicine; Visit Provider Internal Medicine Hypertension Specialist ==

== ENCOUNTER 2024-05-10 13:26 | Outpatient (AMB) | payer OTHER, SELFPAY ==
[2024-05-10 13:32] VITALS: BP 160/102; BMI 22.3
--- NOTE | 2024-05-10 13:32 | MHC.OFFVIS ---
Vital Signs 05/10/24 13:32 Height 5 ft 4 in Weight 130 lb 1.164 oz BMI 22.3 BP 160/102 H Intake Visit Reasons: Menopause symptoms Timber Cruiser Required: No Information Interpreted: non-clinical & clinical Accompanied by: Self / Same As Patient Allergies azithromycin [Zithromax Z-Issac] Allergy (Unknown, Verified 05/10/24 13:33) rash, hives lisinopril Allergy (Unknown, Verified 05/10/24 13:33) muscle cramps metoprolol Allergy (Unknown, Verified 05/10/24 13:33) bruises simvastatin Allergy (Unknown, Verified 05/10/24 13:33) face swelling amlodipine Adverse Reaction (Intermediate, Verified 05/10/24 13:33) Reflex tachycardia Post menopausal: Yes HPI Comments Details: Presenting complaining of hot flashes night sweats. The patient had been amenorrheic for the last 1.5 years PFSH Medical History COVID-19 virus infection Hypercholesterolemia Hypertension Tobacco abuse Anxiety Alcohol abuse Surgical History History of tubal ligation History of appendectomy Family History Father Diabetes Hypertension CVD (cardiovascular disease) Stroke Mother Diabetes Hypertension Cervical cancer Sister Uterine cancer Maternal Aunt Cervical cancer Social History Housing: House Alcohol intake: current Alcohol intake frequency: a few times a month Patient Tobacco Use Status: Former Tobacco user Tobacco use type: Cigarette Cigarettes Per Day: 10 e-Cigarette/Vaping Use: Never Used Second Hand Smoke Exposure: No service: No Current occupational status: employed 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, 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 Current occupational exposures/hazards: No Cognitive needs: No Hearing needs: No Vision needs: No Female Reproductive History Menstrual control method: permanent sterilization Review of Systems Const All systems reviewed & are unremarkable except as noted in HPI and below Reports as per HPI and Reports no additional complaints GI Reports no additional complaints Reports no additional complaints Physical Exam Vital Signs: BMI result Body Mass Index 22.3 Assessment & Plan Assessment & Plan (1) Hot flashes: Code(s): R23.2 - [place] Category: Medical Plan: Discussed with the patient the options of treatment of hot flashes including hormonal replacement therapy, all the pros, cons, risks and benefits (benefits= prevention of hot flashes, atrophic vaginitis, osteoporosis, decrease colon ca risk; also discussed with the patient the risks of MS, Breast ca, DVT, PE, Strokes). In addition, discussed with the patient non hormonal treatment options for hot flashes treatment in surgical menopausal patient. Options discussed with the patient include the following: SSRI/SNRIs , difficulty has been demonstrated in multiple trials clinical response is more rapid (days) than typical response to SSRI for depression (weeks), they are equally effective in natural versus surgical menopause, they have similar modest benefit for hot flashes; Paroxetine 7.5 mg per day is suggested to be as a 1st choice the SSRI/SNRI such, FDA approved for treatment of hot flashes. Citalopram 20 mg per day is another 1st choice option. Sertraline and fluoxetine are not effective options. Effexor at 37.5 mg per day up to 75 mg per day after the 1st week has similar efficacy for hot flashes relief as low-dose estradiol at 0.5 mg per day, 47% efficacy reduction hot flashes Gabapentin it 300 mg p.o. t.i.d. especially for patient was hot flashes are at night has been shown to reduce hot flashes, 41% efficacy reduction hot flashes, if 1 of the SSRI/SNRI class of drugs is ineffective or not tolerated trial of gabapentin would be reasonable The patient is not interested in hormonal contraception and is interested in 1 of the SSRIs that are effective against hot flashes mentioned above and would like to check with her PCP if she can switch sertraline for depression to either paroxetine or citalopram which might help both her mood symptoms in addition to her hot flashes. Instructions given the patient to call back any other concerns. All questions answered, the patient verbalized understanding. Coding Level of Care Code New Pt Level 3 (40081) Diagnoses Hot flashes R23.2
== END 2024-05-10 14:39 | disposition home or self-care (01) ==
PROVIDERS: PCP Internal Medicine; Visit Provider Obstetrics & Gynecology
DX: R23.2 Flushing (principal)
CPT/HCPCS: 99203

== ENCOUNTER → 2024-05-10 13:26 | Outpatient (BNVA) | payer OTHER, SELFPAY | PROVIDERS: PCP Internal Medicine; Visit Provider Obstetrics & Gynecology ==

== ENCOUNTER 2024-05-11 09:53 | Emergency (ER) | payer OTHER, SELFPAY ==
[2024-05-11] VITALS (7 sets, daily range): BP systolic 168–179; BP diastolic 87–119; PULSE 59–77; RESP 9–19; TEMP 36.6–37.1; O2SAT 98–100; BMI 22.3
--- NOTE | ~2024-05-11 | XR_ITS ---
EXAMINATION: XR CHEST CLINICAL INFORMATION: Hypertension COMPARISON: None available. TECHNIQUE: 2 views of the chest were obtained. FINDINGS: Heart, mediastinum and vascularity within normal limits. Hyperinflated lungs with biapical mild pleural thickening. No consolidations or effusions. Bony structures are intact. XR/XR chest 2V IMPRESSION: Hyperinflated but clear lungs.
--- NOTE | ~2024-05-11 | CT_ITS ---
EXAMINATION: CT HEAD WITHOUT CONTRAST CLINICAL INFORMATION: Headache and dizziness COMPARISON: None available. TECHNIQUE: Contiguous axial imaging was performed from the skull base to vertex without intravenous administration of contrast. This CT examination was performed using dose optimization techniques as appropriate, variously including the following: *Automated exposure control *Adjustment of mA and/or kV according to patient size (this includes techniques or standardized protocols for targeted exams where dose is matched to indication/reason for exam; i.e. extremities or head) *Use of iterative reconstruction technique DLP: 623 mGy-cm FINDINGS: Intracranial structures are normal appearing. Flynn-white matter differentiation is preserved. Left basal ganglia calcification. No evolving infarct, mass lesion, mass effect, midline shift, hemorrhage or extra-axial fluid collections. Intraorbital structures are unremarkable. Bony structures are intact. Soft tissues are unremarkable. CT/CT head/brain wo IV con IMPRESSION: No acute intracranial pathology.
--- NOTE | 2024-05-11 10:19 | ECG_ITS ---
Test Reason : HYPERTENSIVE Blood Pressure : / mmHG Vent. Rate : 062 BPM Atrial Rate : 062 BPM P-R Int : 164 ms QRS Dur : 090 ms QT Int : 440 ms P-R-T Axes : 060 034 059 degrees QTc Int : 446 ms Sinus rhythm with occasional Premature ventricular complexes Minimal voltage criteria for LVH, may be normal variant ( Sokolow-Ventura ) Borderline ECG When compared with ECG of 07-JUN-2023 11:22, Vent. rate has decreased BY 50 BPM Referred By: Generic ED Physician Electronically Signed By:DARA DAY
--- NOTE | 2024-05-11 10:39 | PC.NURSE ---
a&ox4. vss and up to date aside from being hypertensive. nsr on the cardiac rehab nurse. pt presents to the ED w/ HTN/PATEL x 1 week. pt reports hx of hypertension - compliant w/ medication/monitors BP at home. pt reports seeing PCP where they advised her to double her carvedilol dose - pt reports dose change being ineffective. pt also reports episodes of nausea/blurry vision. 20gIV placed in the right AC - labs obtained/sent to lab. ekg performed by tech. xray results pending. no sob/wob noted. respirations even/unlabored. pt's partner bedside for support. plan of care ongoing. call mueller placed within reach.
[2024-05-11 10:43] LABS: MANUAL DIFF FLAG NO
[2024-05-11 10:47] LABS: Basophils Percent Auto 0.6 % (0-2); Eosinophils Absolute Auto 0.1 X10*3/uL (0.0-0.4); Eosinophils Percent Auto 1.6 % (0-4); Hematocrit 38.3 % (37.0-47.0); Hemoglobin 13.2 g/dl (12.0-16.0); Imm Gran Abs Auto 0.01 X10*3/uL (0.00-0.03); Imm Gran Pct Auto 0.1 % (0.0-0.4); Lymphocytes Absolute Auto 1.2 X10*3/uL (1.2-4.9); Lymphocytes Percent Auto 17.6 % (20-40); Mean Corpuscular HGB Conc 34.5 g/dl (31.0-35.0); Mean Corpuscular Hemoglobin 33.6 pg (27.0-33.0); Mean Corpuscular Volume 97.5 fL (80.0-98.0); Mean Platelet Volume 10.4 fL (9.4-12.3); Monocytes Absolute Auto 0.6 X10*3/uL (0.1-1.2); Monocytes Percent Auto 8.8 % (2-11); Neutrophils Absolute Auto 4.8 x10*3/uL (2.0-8.3); Neutrophils Percent Auto 71.3 % (45-73); Platelet Count 261 X10*3/uL (160-400); Red Blood Count 3.93 X10*6/uL (4.20-5.50); Red Cell Distribution Width 12.3 % (11.0-16.0); White Blood Count 6.7 X10*3/uL (4.8-10.8)
[2024-05-11 11:01] LABS: Anion Gap 10 (12-20); Blood Urea Nitrogen 8 mg/dL (9-16); Calcium 9.6 mg/dL (8.4-10.2); Carbon Dioxide 26 mmol/L (22-29); Chloride 108 mmol/L (96-108); Creatinine Clr Calc Pharmacy 67.7; Estimated Glomerular Filt Rate > 60; Glucose Random 99 mg/dL (60-115); Potassium 3.8 mmol/L (3.3-5.1); Sodium 140 mmol/L (135-145)
[2024-05-11 11:07] LABS: Troponin-I High Sensitivity 48.5 ng/L (<3.5-17.0)
--- NOTE | 2024-05-11 12:18 | ED.GENADULT ---
HPI - General Adult General Chief complaint: General Medical Stated complaint: high BP Time Seen by Provider: 05/11/24 11:14 Source: patient Mode of arrival: ambulatory Limitations: no limitations History of Present Illness ED Provider: gen DELEON narrative: Patient is a 53-year-old female with history of hypertension, hypercholesterolemia, tobacco use, quit within past month, alcohol use, anxiety presenting to the emergency department with complaint of elevated blood pressure readings over the past week with associated headache, blurred vision, nausea. Denies vomiting or abdominal pain. Patient states that she recently saw her regulator pin inserter who discontinued hydralazine and started her on Coreg. She was started on coreg BID with plan to titrate up as needed. Patient states she is currently taking 12.5mg of Coreg BID. Also reports episodes of chest pain earlier in the week, denies current chest pain, palpitations or dyspnea. Denies dizziness or lightheadedness. MD complaint: high blood pressure, headache Onset (ago): week(s) Location: head Quality: aching Pain Consistency: constant Associated symptoms: chest pain Treatments prior to arrival: other Related Data Previous Rx's ?Medication ?Instructions ?Recorded nicotine 7 mg/24 hr daily 1 patch transdermal Q24H #28 ea 06/25/23 transdermal patch lorazepam 0.5 mg tablet 0.5 mg PO BEDTIME PRN anxiety 30 06/30/23 days #30 tabs acetaminophen 500 mg tablet 500 mg PO DAILY PRN fever #30 tabs 10/21/23 sumatriptan succinate 50 mg tablet See Rx Instructions PO .COMPLEX 12/15/23 (Imitrex) #14 tabs blood pressure monitor (Blood #1 ea 01/30/24 Pressure Kit) sertraline 25 mg tablet 25 mg PO DAILY #30 tabs 01/30/24 oxycodone-acetaminophen 5 mg-325 1 tab PO Q6H PRN pain #5 tabs 02/16/24 mg tablet hydroxyzine HCl 25 mg tablet 25 mg PO TID #60 tabs 02/26/24 triamcinolone acetonide 0.1 % 1 appl topical BID #454 grams 02/26/24 topical cream atorvastatin 10 mg tablet 10 mg PO DAILY #30 tabs 03/26/24 carvedilol 6.25 mg tablet (Coreg) 6.25 mg PO BID #60 tabs 07/23/24 cyclobenzaprine 10 mg tablet 10 mg PO TID PRN for cramps #90 05/09/24 caps carvedilol 25 mg tablet 25 mg PO BID #60 tabs 05/11/24 Allergies Allergy/AdvReac Type Severity Reaction Status Date / Time azithromycin Allergy Unknown rash, hives Verified 05/11/24 10:17 [Zithromax Z-Issac] lisinopril Allergy Unknown muscle Verified 05/11/24 10:17 cramps metoprolol Allergy Unknown bruises Verified 05/11/24 10:17 simvastatin Allergy Unknown face Verified 05/11/24 10:17 swelling amlodipine AdvReac Intermediate Reflex Verified 05/11/24 10:17 tachycardia Review of Systems Review of Systems: As per HPI. Yes all other systems are reviewed and are negative Constitutional: Constitutional: Reports as per HPI PMFSH Past Medical History Medical History COVID-19 virus infection Hypercholesterolemia Hypertension Tobacco abuse Anxiety Alcohol abuse Surgical History History of tubal ligation History of appendectomy Family History Family History Father Diabetes Hypertension CVD (cardiovascular disease) Stroke Mother Diabetes Hypertension Cervical cancer Sister Uterine cancer Maternal Aunt Cervical cancer Social History Social History Housing: House Alcohol intake: current Alcohol intake frequency: holidays/special occasions only Patient Tobacco Use Status: Former Tobacco user Tobacco use type: Cigarette Cigarettes Per Day: 10 Smoked in Last 30 Days: No e-Cigarette/Vaping Use: Never Used Second Hand Smoke Exposure: No Use of substances other than those prescribed or required for medical reasons: Yes Substance Use Type: Marijuana Advance Directives: No Advance Directives Information Provided: Yes Do you have a plan to hurt others: No Plan Patient : No service: No Current occupational status: employed 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, 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 Current occupational exposures/hazards: No Cognitive needs: No Hearing needs: No Vision needs: No Physical Exam ED Vital Signs: Vital Signs - 24 hr 05/11/24 10:15 05/11/24 10:38 05/11/24 12:00 Temperature 98 F 98.4 F 98.7 F Pulse Rate 77 60 65 Respiratory Rate 19 18 9 L Blood Pressure 179/119 H 172/97 H 168/89 H Pulse Oximetry 98 100 99 Oxygen Delivery Method Room Air Room Air Room Air 05/11/24 12:50 05/11/24 14:49 Temperature 98.6 F Pulse Rate 59 66 Respiratory Rate 10 L Blood Pressure 175/87 H 174/98 H Pulse Oximetry 100 Oxygen Delivery Method Room Air BMI result Body Mass Index 22.3 Vital signs have been reviewed and appear to be correct. Blood pressure hypertensive. Heart rate normal. Respiratory rate normal. Temperature normal. Oxygen saturation normal. Const General: cooperative, healthy appearing and no acute distress Orientation/consciousness: oriented to person, oriented to place, oriented to time and patient oriented x3 Limitations: no limitations HENMT Head: Yes normocephalic and Yes atraumatic Ears: external ears normal General nose exam: Normal external nose present Face and sinus: Yes face symmetric Mouth: oropharynx normal and moist mucous membranes Throat: Yes uvula midline Eyes Pupils: Equal, round and reactive pupils present Neck Neck: Yes normal visual inspection, Yes no meningeal signs and Yes supple Resp Effort & Inspection: normal respiratory effort and able to speak in complete sentences Auscultation: clear to auscultation bilaterally Cardio Rate: regular rate Rhythm: regular rhythm Heart sounds: S1 normal heart sound present and S2 normal heart sound present GI Palpation (GI): Soft to palpation and nontender Auscultation: normoactive bowel sounds General: Yes no CVA tenderness Back/Spine/Pelvis Back: no CVA tenderness Skin General skin exam: elasticity normal and turgor normal Neuro General: oriented to person, oriented to place, oriented to time, patient oriented x3, gait normal, tone normal, moves all extremities, Normal light touch and pain sensation, no meningeal signs, no focal motor deficits, CN's II-XI intact bilaterally and deep tendon reflexes 2+ bilaterally Cranial nerves: Yes Equal, round and reactive pupils present Cognition (Neuro): normal cognition Motor exam (neuro): 5/5 motor strength present throughout, Pronator motor function not present, Normal motor muscle tone present throughout and Motor abnormalities not present Sensory Exam: Normal double simultaneous stimulation for sensation Extrem General: Yes full ROM, Yes no pedal edema and Yes no calf tenderness Psych Mental Status: mental status grossly normal Affect: normal affect Thought process: Normal thought process present Medications Administered Discontinued Medications Generic Name Dose Route Start Last Admin Trade Name Freq PRN Reason Stop Dose Admin Carvedilol 6.25 mg 05/11/24 12:39 05/11/24 12:50 Carvedilol 6.25 Mg Tablet PO 05/11/24 12:40 6.25 mg ONCE ONE Administration Protocol Medical Decision Making Medical Decision Making [facility] Narrative: Patient is a 53-year-old female with history of hypertension, hypercholesterolemia, tobacco use, quit within past month, alcohol use, anxiety presenting to the emergency department with complaint of elevated blood pressure readings over the past week with associated headache, blurred vision, nausea. On exam patient is awake, A+Ox3, VS WNL, afebrile, normal neurological exam without focal deficits, physical exam findings as above. Given reported symptoms and physical exam findings, initial differential includes uncontrolled HTN, ICH/CVA. Unlikely ACS as patient denies current chest pain. EKG shows sinus rhythm with occasional PVCs. Labs notable for initial troponin of 48.5,repeats downtrending x2. CT head notable for no evidence of ICH or other abnormality. Chest x-ray unremarkable. My interpretation is in agreement with the radiologist's interpretation. Patient given additional 6.5mg Coreg in the ED with little effect. Case discussed with Dr. Beaver, regulator pin inserter, who advises increasing patient's Coreg dose to 25mg BID. Patient states she does not have enough supply of Coreg at home for this as she was initially given 6.25mg tabs, new prescription sent. Instructed patient to call regulator pin inserter for follow up appointment. Lab Data 05/11/24 10:33 05/11/24 10:33 Labs: Lab Results 05/11/24 05/11/24 05/11/24 Range/Units 10:33 12:45 15:09 WBC 6.7 (4.8-10.8) X10*3/uL RBC 3.93 L (4.20-5.50) X10*6/uL Hgb 13.2 (12.0-16.0) g/dl Hct 38.3 (37.0-47.0) % MCV 97.5 (80.0-98.0) fL MCH 33.6 H (27.0-33.0) pg MCHC 34.5 (31.0-35.0) g/dl RDW 12.3 (11.0-16.0) % Plt Count 261 (160-400) X10*3/uL MPV 10.4 (9.4-12.3) fL Immature Gran % (Auto) 0.1 (0.0-0.4) % Neut % (Auto) 71.3 (45-73) % Lymph % (Auto) 17.6 L (20-40) % Larue % (Auto) 8.8 (2-11) % Eos % (Auto) 1.6 (0-4) % Baso % (Auto) 0.6 (0-2) % Lymph # (Auto) 1.2 (1.2-4.9) X10*3/uL Larue # (Auto) 0.6 (0.1-1.2) X10*3/uL Eos # (Auto) 0.1 (0.0-0.4) X10*3/uL Baso # (Auto) 0.0 (0.0-0.2) X10*3/uL Abs Immat Gran (auto) 0.01 (0.00-0.03) X10*3/uL Absolute Neuts (auto) 4.8 (2.0-8.3) x10*3/uL Absolute Nucleated RBC 0.000 (0.0-0.012) X10*3/uL Nucleated RBC % (auto) 0.0 (0.0-0.2) /100WBC Sodium 140 (135-145) mmol/L Potassium 3.8 (3.3-5.1) mmol/L Chloride 108 (96-108) mmol/L Carbon Dioxide 26 (22-29) mmol/L Anion Gap 10 L (12-20) BUN 8 L (9-16) mg/dL Creatinine 0.83 (0.5-1.4) mg/dL Estim Creat Clear Calc 67.7 Estimated GFR > 60 Random Glucose 99 (60-115) mg/dL Calcium 9.6 (8.4-10.2) mg/dL Troponin I High Sens 48.5 H D 47.6 H 45.2 H (<3.5-17.0) ng/L Independent Interpretation I performed an independent interpretation of an: EKG (sinus rhythm with occasional PVCs, rate 62bpm, normal VA interval and QTc), Plain X-Ray and CT Scan Interpretation: CT head notable for no evidence of ICH or other abnormality. Chest x-ray unremarkable. Radiology Impression Discussion of test interpretation with radiology: I have reviewed the radiologist's reading. Radiologist Impression: CT/CT head/brain wo IV con IMPRESSION: No acute intracranial pathology. XR/XR chest 2V IMPRESSION: Hyperinflated but clear lungs. Discharge Plan Discharge Clinical Impression: Hypertension Patient Disposition: Home, Self-Care Instructions: How to Take a Blood Pressure (ED), Hypertension (ED) Additional Instructions: You were evaluated in the emergency department today for high blood pressure readings (hypertension). Your evaluation did not show evidence of conditions requiring emergent medical treatment at this time. After a discussion with your regulator pin inserter, they recommend increasing your Coreg (carvedilol) to 25mg twice daily. A new prescription has been sent to the pharmacy. Please call the nephrology office to schedule a follow up appointment. Return to the emergency department if you develop chest pain, difficulty breathing, severe headache, changes in vision, persistent vomiting, new weakness, numbness, tingling, or any other concerning symptoms. Prescriptions: New carvedilol 25 mg tablet 25 mg PO BID Qty: 60 0RF Rx Instructions: must administer with a meal/food No Action lorazepam 0.5 mg tablet 0.5 mg PO BEDTIME PRN (Reason: anxiety) 30 Days Qty: 30 0RF acetaminophen 500 mg tablet 500 mg PO DAILY PRN (Reason: fever) Qty: 30 0RF sumatriptan succinate [Imitrex] 50 mg tablet See Rx Instructions PO .COMPLEX Qty: 14 1RF Rx Instructions: take 1 tab at onset of headache; if no relief may repeat 1 tab after at least 2 hrs; max = 4 tabs/24 hr PO atorvastatin 10 mg tablet 10 mg PO DAILY Qty: 30 4RF cyclobenzaprine 10 mg tablet 10 mg PO TID PRN (Reason: for cramps) Qty: 90 0RF oxycodone-acetaminophen 5-325 mg tablet 1 tab PO Q6H PRN (Reason: pain) Qty: 5 0RF Rx Instructions: Partial Fill upon patient request. hydroxyzine HCl 25 mg tablet 25 mg PO TID Qty: 60 0RF triamcinolone acetonide 0.1 % cream 1 appl topical BID Qty: 454 0RF nicotine 7 mg/24 hr patch 24 hour 1 patch transdermal Q24H Qty: 28 0RF (DME) blood pressure monitor [Blood Pressure Kit] Kit See Rx Instructions .ROUTE .MEDSUPPLY Qty: 1 0RF Rx Instructions: As directed sertraline 25 mg tablet 25 mg PO DAILY Qty: 30 3RF carvedilol [Coreg] 6.25 mg tablet 6.25 mg PO BID Qty: 60 0RF Rx Instructions: must administer with a meal/food Referrals: Jerrell Waterman MD [Physician] - Print Language: Khmer
--- NOTE | 2024-05-11 12:48 | PC.NURSE ---
repeat trop obtained/sent to lab.
[2024-05-11] MEDS: carvediloL 6.25 MG TABLET PO (12:50)
--- NOTE | 2024-05-11 12:52 | PC.NURSE ---
provider ordered another dose of carvedilol despite pt previously taking 2 doses at home. this RN spoke w/ provider in regards to if she wanted a third dose administered at this time - provider states gas stove servicer helper note states that pt will be started on BID and titrated upward as needed. medication administered per provider order. effectiveness pending. repeat troponin obtained/sent to lab. pt waiting to go to CT at this time.
[2024-05-11 13:19] LABS: Troponin-I High Sensitivity 47.6 ng/L (<3.5-17.0)
[2024-05-11 15:35] LABS: Troponin-I High Sensitivity 45.2 ng/L (<3.5-17.0)
== END 2024-05-11 16:14 | disposition home or self-care (01) ==
PROVIDERS: Registered Nurse Emergency; Emergency Provider Emergency Medicine; PCP Internal Medicine
DX: I10 Essential (primary) hypertension (principal); E78.00 Pure hypercholesterolemia, unspecified; F41.9 Anxiety disorder, unspecified; F10.10 Alcohol abuse, uncomplicated; Y90.9 Presence of alcohol in blood, level not specified; Z87.891 Personal history of nicotine dependence; Z79.899 Other long term (current) drug therapy; Z79.02 Long term (current) use of antithrombotics/antiplatelets
CPT/HCPCS: 36415; 70450; 71046; 80048; 84484; 85025; 93005; 99284

== ENCOUNTER → 2024-05-11 10:19 | Outpatient (BNV) | payer OTHER, SELFPAY | PROVIDERS: Emergency Provider Emergency Medicine; PCP Internal Medicine; Visit Provider Internal Medicine | DX: I49.3 Ventricular premature depolarization (principal) | CPT/HCPCS: 93010 ==

== ENCOUNTER 2024-05-13 11:02 | Outpatient (AMB) | payer OTHER, SELFPAY ==
--- NOTE | 2024-05-13 11:09 | MHC.PC.OV ---
Vital Signs 05/13/24 11:10 05/13/24 11:38 Height 5 ft 4 in Weight 128 lb 0.4 oz BMI 22.0 BP 146/72 H 140/80 H Blood Pressure Location Lt brachial Lt brachial Position Sitting Sitting Pulse 68 Pulse Source Pulse Oximeter Pulse Oximetry (%) 99 Oxygen Delivery Method Room Air Intake Visit Reasons: [facility] 05/11 BP/Headaches Intake Note: Patient is here to follow-up after a visit the emergency department at [facility] on 05/11/2024 Trout Farmer Required: No Allergies azithromycin [Zithromax Z-Issac] Allergy (Unknown, Verified 05/13/24 11:10) rash, hives lisinopril Allergy (Unknown, Verified 05/13/24 11:10) muscle cramps metoprolol Allergy (Unknown, Verified 05/13/24 11:10) bruises simvastatin Allergy (Unknown, Verified 05/13/24 11:10) face swelling amlodipine Adverse Reaction (Intermediate, Verified 05/13/24 11:10) Reflex tachycardia Medication List - Last Reconciled 05/13/24 by Gisela Lilly PA-C acetaminophen 500 mg PO DAILY PRN atorvastatin 10 mg PO DAILY blood pressure monitor (Blood Pressure Kit) As directed carvedilol 25 mg PO BID carvedilol (Coreg) 6.25 mg PO BID cyclobenzaprine 10 mg PO TID PRN hydroxyzine HCl 25 mg PO TID lorazepam 0.5 mg PO BEDTIME PRN 30 days nicotine 1 patch transdermal Q24H oxycodone-acetaminophen 5-325 mg 1 tab PO Q6H PRN sertraline 25 mg PO DAILY sumatriptan succinate (Imitrex) take 1 tab at onset of headache; if no relief may repeat 1 tab after at least 2 hrs; max = 4 tabs/24 hr PO triamcinolone acetonide 0.1% 1 appl topical BID Tobacco use date assessed: 01/30/24 Dental Screening Dental Screen Date: 10/24/23 HPI [facility] 05/11 BP/Headaches HPI Details 53-year-old female smoker with hypertension, hypercholesterolemia, generalized anxiety disorder, last seen by Dr. Carmen coming in for hospital follow up. In review of the notes, Patient was seen in [facility] ED 05/11/2024 for elevated blood pressure with headache, nausea and blurred vision.?EKG showed normal sinus rhythm and labs were unremarkable.?CT of the head and chest x-ray were also unremarkable. Patient was consulted by Neurology who recommended increasing the daily carvedilol dose to 25 mg b.i.d. Follow up with Nephrology outpatient. Patient states her headaches, nausea, and blurred vision have improved since hospital discharge. She does continue to have blurred vision but believes it may be related to her vision has not been evaluated by an eye doctor. She does continue to have headaches which have been chronic and she has been using sumatriptan which does help to resolve the headaches. FORMERLY [facility] Medical History COVID-19 virus infection Hypercholesterolemia Hypertension Tobacco abuse Anxiety Alcohol abuse Surgical History History of tubal ligation History of appendectomy Family History Father Diabetes Hypertension CVD (cardiovascular disease) Stroke Mother Diabetes Hypertension Cervical cancer Sister Uterine cancer Maternal Aunt Cervical cancer Social History Housing: House Alcohol intake: current Alcohol intake frequency: holidays/special occasions only Patient Tobacco Use Status: Former Tobacco user Tobacco use type: Cigarette Cigarettes Per Day: 10 e-Cigarette/Vaping Use: Never Used Second Hand Smoke Exposure: No Substance Use Type: Marijuana service: No Current occupational status: employed 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 How often do you have a drink containing alcohol?: Never 2. How many drinks containing alcohol do you have on a typical day when you are drinking?: 1 or 2 3. How often do you have six or more drinks on one occasion?: Never Total Score: 0 Score Reviewed/Action Taken: Yes (reviewed, she reports not drinking every day. ) MACHO-7 AMB Questionnaire MACHO-7 Date MACHO - 7 assessed: 10/24/23 Source: Developed by Drs. Binu Calhoun, Savannah Calvillo, Melquiades Hale and colleagues, with an educational gallo from [employer]. Review of Systems Const Denies body aches, Denies chills, Denies fever(s), Reports headache(s) and Denies poor appetite Eyes Reports as per HPI ENT Denies dizziness and Reports headache(s) Card Denies chest pain, Denies syncope, Denies edema, Denies irregular heart rhythm, Denies lightheadedness and Denies dyspnea Resp Denies cough and Denies dyspnea GI Denies abdominal pain, Denies nausea and Denies vomiting Reports no additional complaints Musc Reports no additional complaints and Denies abnormal gait Skin/Breast Reports system reviewed and no additional complaints, except as documented Neuro Denies abnormal gait, Denies dizziness, Denies syncope and Reports headache(s) Psych Reports no additional complaints Physical exam (Primary Care) Vital Signs: Last Vital Signs Pulse 68 05/13/24 11:10 BP 146/72 H 05/13/24 11:10 Pulse Ox 99 05/13/24 11:10 Oxygen Delivery Method Room Air 05/13/24 11:10 BMI result Body Mass Index 22.0 Tobacco/Smoking Status: Tobacco use Status Tobacco use date assessed 01/30/24 05/13/24 11:11 Patient Tobacco Use Status Former Tobacco user 05/13/24 11:11 Tobacco use type Cigarette 05/13/24 11:11 e-Cigarette/Vaping Use Never Used 05/13/24 11:11 Thrive Assessment: Date of Thrive Assessment Date Thrive assessed 01/30/24 05/13/24 11:11 Const General: cooperative, healthy appearing, comfortable and no acute distress Orientation/consciousness: patient oriented x3 HENMT Head: Yes normocephalic Ears: hearing grossly normal bilaterally, TM's normal bilaterally and EAC's normal General nose exam: Normal external nose present Eyes General: appearance normal, both eyes and all related structures Conjunctivae: conjunctivae normal Neck Neck: Yes full ROM and Yes no lymphadenopathy Resp Effort & Inspection: normal respiratory effort Auscultation: clear to auscultation bilaterally, no crackles, no rales, no rhonchi and no wheezes Cardio Rate: regular rate Rhythm: regular rhythm Skin General skin exam: no rashes or lesions noted Neuro General: patient oriented x3 Gait exam (Neuro): Normal gait present Extrem General: Yes normal to inspection, Yes full ROM and No edema Psych Affect: normal affect Attitude: cooperative Insight: Good insight present (Psych) Judgement: Good judgement present (Psych) Assessment and Plan Assessment & Plan (1) Blurred vision: Code(s): H53.8 - Other visual disturbances Plan: Referral to optometry placed today. Continue to monitor symptoms. (2) Migraine: Code(s): G43.909 - Migraine, unspecified, not intractable, without status migrainosus Plan: Patient continues to have migraines which do resolve with sumatriptan however she does find that she has them almost every day. Discussed migraine prevention and conservative measures. Advised patient to keep a headache diary to bring to next appointment and increase fluid intake. Encouraged healthy diet and exercise. (3) Hypertension: Code(s): I10 - Essential (primary) hypertension Plan: Blood pressure in the office today when retaken was 140/80 which is within goal. Blood pressure readings have improved since dose adjustment while in the hospital. She is due to follow up with Nephrology next week who will continue with management of blood pressure. Plan This note was constructed using voice recognition software. While every effort has been made to ensure accuracy and trimmer sawyer, still areas may have been included sometimes these areas may affect the content or meeting of the given symptoms. Total time spent caring for the patient today was 30 minutes. This includes time spent before the visit reviewing the chart, time spent during the visit, and time spent after the visit and documentation. Orders: Referrals Optometry Referral H53.8 - Other visual disturbances Coding Level of Care Code Est Pt Level 4 (09467) Diagnoses Blurred vision H53.8 Migraine G43.909 Primary hypertension I10
[2024-05-13 11:10] VITALS: BP 146/72; PULSE 68; O2SAT 99; BMI 22.0
[2024-05-13 11:38] VITALS: BP 140/80
== END 2024-05-13 11:43 | disposition home or self-care (01) ==
PROVIDERS: PCP Internal Medicine
DX: H53.8 Other visual disturbances (principal); G43.909 Migraine, unspecified, not intractable, without status migrainosus; I10 Essential (primary) hypertension
CPT/HCPCS: 99214

== ENCOUNTER 2024-05-20 14:14 | Outpatient (AMB) | payer OTHER, SELFPAY ==
--- NOTE | 2024-05-20 14:15 | HO.NEPHOV_ITS ---
Vital Signs 05/20/24 14:16 Height 5 ft 4 in Weight 131 lb BMI 22.5 BP 172/96 H Blood Pressure Location Rt brachial Position Sitting Pulse 78 Pulse Source Pulse Oximeter Pulse Oximetry (%) 99 Oxygen Delivery Method Room Air Intake Visit Reasons: Pt seen at [facility] on 05/11/24/ Unable to reach Sinker Winder Required: No Accompanied by: Self / Same As Patient Allergies azithromycin [Zithromax Z-Issac] Allergy (Unknown, Verified 05/20/24 14:19) rash, hives lisinopril Allergy (Unknown, Verified 05/20/24 14:19) muscle cramps metoprolol Allergy (Unknown, Verified 05/20/24 14:19) bruises simvastatin Allergy (Unknown, Verified 05/20/24 14:19) face swelling amlodipine Adverse Reaction (Intermediate, Verified 05/20/24 14:19) Reflex tachycardia Medication List - Last Reconciled 05/20/24 by Jerrell Waterman MD acetaminophen 500 mg PO DAILY PRN atorvastatin 10 mg PO DAILY blood pressure monitor (Blood Pressure Kit) As directed carvedilol 25 mg PO BID cyclobenzaprine 10 mg PO TID PRN hydroxyzine HCl 25 mg PO TID lorazepam 0.5 mg PO BEDTIME PRN 30 days nicotine 1 patch transdermal Q24H oxycodone-acetaminophen 5-325 mg 1 tab PO Q6H PRN sertraline 25 mg PO DAILY sumatriptan succinate (Imitrex) take 1 tab at onset of headache; if no relief may repeat 1 tab after at least 2 hrs; max = 4 tabs/24 hr PO triamcinolone acetonide 0.1% 1 appl topical BID HPI Comments Details: Angella is a pleasant 53-year-old woman with a history of hypertension. She has been referred for hypokalemia. Recently potassium was 3.2 mg/dL she was given potassium supplementation for a week which she has completed. Prior to this 6 months ago potassium was in normal range. About a year ago she had an episode of hypokalemia also which was treated with potassium supplementation. She denies taking any diuretics. She has no history of in diarrhea. She was on amlodipine 5 mg dose has been increased to 10 mg recently. Overall blood pressure has been well controlled. She is history of cough due to lisinopril therefore she has not on any EMIL inhibitors. She is history of smoking for many years she quit smoking about a week ago. She smoked up to 1 pack a day. She works as a [employer] She had a normal delivery without any preeclampsia. No history of unexplained sweating or palpitations. No edema. No urinary symptoms. No weight loss No fever All systems were reviewed 02/17/2024. Accompanied by daughter. She is cut down on amlodipine. Still has tachycardia. She drinks about 3 cups of coffee in the morning. Underwent surgery for trigger finger on the right hand 04/20/2024. She was given labetalol 100 mg twice a day last visit. She had developed a rash in therefore this was switched to hydralazine 25 mg twice a day. Blood pressure is suboptimal. She continues to have some rash. 05/20/2024. She was recently in the ER with elevated blood pressure. Carvedilol was increased to 20 mg b.i.d. which he is tolerating well. Blood pressure still suboptimal. No new complaints today. [facility] Medical History COVID-19 virus infection Hypercholesterolemia Hypertension Tobacco abuse Anxiety Alcohol abuse Surgical History History of tubal ligation History of appendectomy Family History Father Diabetes Hypertension CVD (cardiovascular disease) Stroke Mother Diabetes Hypertension Cervical cancer Sister Uterine cancer Maternal Aunt Cervical cancer Social History Housing: House Alcohol intake: current Alcohol intake frequency: holidays/special occasions only Patient Tobacco Use Status: Former Tobacco user Tobacco use type: Cigarette Cigarettes Per Day: 10 e-Cigarette/Vaping Use: Never Used Second Hand Smoke Exposure: No Substance Use Type: Marijuana service: No Current occupational status: employed 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, 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 Current occupational exposures/hazards: No Cognitive needs: No Hearing needs: No Vision needs: No Physical Exam Vital Signs: Last Vital Signs Pulse 78 05/20/24 14:16 BP 172/96 H 05/20/24 14:16 Pulse Ox 99 05/20/24 14:16 Oxygen Delivery Method Room Air 05/20/24 14:16 BMI result Body Mass Index 22.5 Const General: comfortable; No acute distress Orientation/consciousness: patient oriented x3 Eyes General: appearance normal, both eyes and all related structures Visual Ann: normal visual ann by confrontation Neck Neck: Yes supple and Yes no JVD Resp Effort & Inspection: normal respiratory effort and respiratory effort not decreased Auscultation: rhonchi Cardio Palpation: no palpable S3 and no palpable S4 Heart sounds: no rubs GI Inspection: Yes normal to inspection Palpation (GI): Soft to palpation Percussion: Yes normal to percussion Auscultation: normal bowel sounds General: Yes no CVA tenderness Back/Spine/Pelvis Back: no CVA tenderness Skin General skin exam: no petechiae and no purpura Neuro General: patient oriented x3 and no focal motor deficits Extrem General: No clubbing and No edema Results Reviewed Nephrology Results: Hgb 13.2 g/dl (12.0-16.0) 05/11/24 WBC 6.7 X10*3/uL (4.8-10.8) 05/11/24 Plt Count 261 X10*3/uL (160-400) 05/11/24 Sodium 140 mmol/L (135-145) 05/11/24 Potassium 3.8 mmol/L (3.3-5.1) 05/11/24 Chloride 108 mmol/L (96-108) 05/11/24 Carbon Dioxide 26 mmol/L (22-29) 05/11/24 BUN 8 mg/dL (9-16) L 05/11/24 Creatinine 0.83 mg/dL (0.5-1.4) 05/11/24 Calcium 9.6 mg/dL (8.4-10.2) 05/11/24 Urine Creatinine 88.99 mg/dL 04/19/24 Assessment & Plan Assessment & Plan (1) Hypertension: Code(s): I10 - Essential (primary) hypertension Category: Medical (2) Hypokalemia: Code(s): E87.6 - Hypokalemia Category: Medical Plan 53-year-old woman with a history of hypertension and hypokalemia. She had not on any diuretics. No significant alkalosis. Recent plasma aldosterone level was normal at 6 with a PA/PRA ratio of 5.2. She has reflex tachycardia most likely due to calcium channel carol/amlodipine Repeat potassium low is normal renal function is normal. Keep carvedilol 25 mg b.i.d.. Add spironolactone 25 mg daily. I would start with half tablet a day and increase the dose as needed. Orders: Orders Basic Metabolic Panel 15 Days E87.6 - Hypokalemia, I10 - Essential (primary) hypertension Medications: New spironolactone 25 mg PO DAILY 30 tabs 1RF Coding Level of Care Code Est Pt Level 4 (36971) Diagnoses Primary hypertension I10 Hypokalemia E87.6
[2024-05-20 14:16] VITALS: BP 172/96; PULSE 78; O2SAT 99; BMI 22.5
== END 2024-05-20 14:34 | disposition home or self-care (01) ==
PROVIDERS: PCP Internal Medicine; Visit Provider Internal Medicine Hypertension Specialist
DX: I10 Essential (primary) hypertension (principal); E87.6 Hypokalemia
CPT/HCPCS: 99214

== ENCOUNTER → 2024-05-20 14:14 | Outpatient (BNVA) | payer OTHER, SELFPAY | PROVIDERS: PCP Internal Medicine; Visit Provider Internal Medicine Hypertension Specialist ==

== ENCOUNTER 2024-06-15 09:32 | Outpatient (REF) | payer OTHER, SELFPAY ==
[2024-06-15 11:20] LABS: Anion Gap 12 (12-20); Blood Urea Nitrogen 10 mg/dL (9-16); Calcium 9.7 mg/dL (8.4-10.2); Carbon Dioxide 27 mmol/L (22-29); Chloride 105 mmol/L (96-108); Estimated Glomerular Filt Rate > 60; Glucose Random 90 mg/dL (60-115); Potassium 4.1 mmol/L (3.3-5.1); Sodium 140 mmol/L (135-145)
== END 2024-06-15 09:33 | disposition home or self-care (01) ==
LOC: HO.LAB 09:32
PROVIDERS: PCP Internal Medicine; Visit Provider Internal Medicine Hypertension Specialist
DX: E87.6 Hypokalemia (principal); I10 Essential (primary) hypertension
CPT/HCPCS: 36415; 80048

== ENCOUNTER 2024-06-15 13:42 | Outpatient (AMB) | payer OTHER, SELFPAY ==
[2024-06-15 13:45] VITALS: BP 124/84; PULSE 86; O2SAT 99; BMI 22.5
--- NOTE | 2024-06-15 13:45 | A.OFFVIS_ITS ---
Vital Signs 06/15/24 13:45 Height 5 ft 4 in Weight 131 lb BMI 22.5 BP 124/84 Blood Pressure Location Lt brachial Position Sitting Pulse 86 Pulse Source Pulse Oximeter Pulse Oximetry (%) 99 Oxygen Delivery Method Room Air Intake Visit Reasons: Hypertension [employer] Required: No Accompanied by: Daughter Allergies azithromycin [Zithromax Z-Issac] Allergy (Unknown, Verified 06/15/24 13:47) rash, hives lisinopril Allergy (Unknown, Verified 06/15/24 13:47) muscle cramps metoprolol Allergy (Unknown, Verified 06/15/24 13:47) bruises simvastatin Allergy (Unknown, Verified 06/15/24 13:47) face swelling amlodipine Adverse Reaction (Intermediate, Verified 06/15/24 13:47) Reflex tachycardia Medication List - Last Reconciled 06/15/24 by Jerrell Waterman MD acetaminophen 500 mg PO DAILY PRN atorvastatin 10 mg PO DAILY blood pressure monitor (Blood Pressure Kit) As directed carvedilol 25 mg PO BID cyclobenzaprine 10 mg PO TID PRN hydroxyzine HCl 25 mg PO TID lorazepam 0.5 mg PO BEDTIME PRN 30 days nicotine 1 patch transdermal Q24H oxycodone-acetaminophen 5-325 mg 1 tab PO Q6H PRN sertraline 25 mg PO DAILY spironolactone 25 mg PO DAILY sumatriptan succinate (Imitrex) take 1 tab at onset of headache; if no relief may repeat 1 tab after at least 2 hrs; max = 4 tabs/24 hr PO triamcinolone acetonide 0.1% 1 appl topical BID HPI Comments Details: Angella is a pleasant 53-year-old woman with a history of hypertension. She has been referred for hypokalemia. Recently potassium was 3.2 mg/dL she was given potassium supplementation for a week which she has completed. Prior to this 6 months ago potassium was in normal range. About a year ago she had an episode of hypokalemia also which was treated with potassium supplementation. She denies taking any diuretics. She has no history of in diarrhea. She was on amlodipine 5 mg dose has been increased to 10 mg recently. Overall blood pressure has been well controlled. She is history of cough due to lisinopril therefore she has not on any EMIL inhibitors. She is history of smoking for many years she quit smoking about a week ago. She smoked up to 1 pack a day. 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 No history of unexplained sweating or palpitations. No edema. No urinary symptoms. No weight loss No fever All systems were reviewed 02/17/2024. Accompanied by daughter. She is cut down on amlodipine. Still has tachycardia. She drinks about 3 cups of coffee in the morning. Underwent surgery for trigger finger on the right hand 04/20/2024. She was given labetalol 100 mg twice a day last visit. She had developed a rash in therefore this was switched to hydralazine 25 mg twice a day. Blood pressure is suboptimal. She continues to have some rash. 05/20/2024. She was recently in the ER with elevated blood pressure. Carvedilol was increased to 20 mg b.i.d. which he is tolerating well. Blood pressure still suboptimal. No new complaints today. PFSH Medical History COVID-19 virus infection Hypercholesterolemia Hypertension Tobacco abuse Anxiety Alcohol abuse Surgical History History of tubal ligation History of appendectomy Family History Father Diabetes Hypertension CVD (cardiovascular disease) Stroke Mother Diabetes Hypertension Cervical cancer Sister Uterine cancer Maternal Aunt Cervical cancer Social History Housing: House Alcohol intake: current Alcohol intake frequency: holidays/special occasions only Patient Tobacco Use Status: Former Tobacco user Tobacco use type: Cigarette Cigarettes Per Day: 10 e-Cigarette/Vaping Use: Never Used Second Hand Smoke Exposure: No Substance Use Type: Marijuana service: No Current occupational status: employed 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 No significant alkalosis. Recent plasma aldosterone level was normal at 6 with a PA/PRA ratio of 5.2. She has reflex tachycardia most likely due to calcium channel carol/amlodipine Repeat potassium is normal renal function is normal. BP welll controlled Keep carvedilol 25 mg b.i.d.. Keep spironolactone 25 mg daily. Medications: Refilled spironolactone 25 mg PO DAILY 90 tabs 3RF carvedilol must administer with a meal/food 25 mg PO BID 180 tabs 3RF Coding Level of Care Code Tele New Pt Level 4 (68554) Diagnoses Primary hypertension I10 Hypokalemia E87.6
== END 2024-06-15 13:54 | disposition home or self-care (01) ==
PROVIDERS: PCP Internal Medicine; Visit Provider Internal Medicine Hypertension Specialist
DX: I10 Essential (primary) hypertension (principal); E87.6 Hypokalemia
CPT/HCPCS: 99214

== ENCOUNTER 2024-06-17 11:33 | Outpatient (AMB) | payer OTHER, SELFPAY ==
[2024-06-17 11:37] VITALS: BP 144/82; PULSE 78; O2SAT 98; BMI 22.3
--- NOTE | 2024-06-17 11:37 | A.OFFPC_ITS ---
Vital Signs 06/17/24 11:37 Height 5 ft 4 in Weight 130 lb BMI 22.3 BP 144/82 H Blood Pressure Location Lt brachial Position Sitting Pulse 78 Pulse Source Pulse Oximeter Pulse Oximetry (%) 98 Oxygen Delivery Method Room Air Intake Visit Reasons: HTN, Cholesterol Allergies azithromycin [Zithromax Z-Issac] Allergy (Unknown, Verified 06/17/24 11:37) rash, hives lisinopril Allergy (Unknown, Verified 06/17/24 11:37) muscle cramps metoprolol Allergy (Unknown, Verified 06/17/24 11:37) bruises simvastatin Allergy (Unknown, Verified 06/17/24 11:37) face swelling amlodipine Adverse Reaction (Intermediate, Verified 06/17/24 11:37) Reflex tachycardia Tobacco use date assessed: 01/30/24 Dental Screening Dental Screen Date: 10/24/23 HPI HTN, Cholesterol HPI Details 53-year-old female smoker with a history of migraine hypertension hypercholesterolemia generalized anxiety disorder coming in for follow-up. Last seen in 05/18/2024. Noted to have an elevated blood pressure the last time. Patient's mammogram is up-to-date review of the notes has been follow-up with Nephrology seen in June 15 has reflex tachycardia from calcium channel carol amlodipine on carvedilol 25 mg twice a day and spironolactone 25 mg once a day. L knee pain 1 months deny fall or trauma PFSH Medical History COVID-19 virus infection Hypercholesterolemia Hypertension Tobacco abuse Anxiety Alcohol abuse Surgical History History of tubal ligation History of appendectomy Family History Father Diabetes Hypertension CVD (cardiovascular disease) Stroke Mother Diabetes Hypertension Cervical cancer Sister Uterine cancer Maternal Aunt Cervical cancer Social History Housing: House Alcohol intake: current Alcohol intake frequency: holidays/special occasions only Patient Tobacco Use Status: Former Tobacco user Tobacco use type: Cigarette Cigarettes Per Day: 10 e-Cigarette/Vaping Use: Never Used Second Hand Smoke Exposure: No Substance Use Type: Marijuana service: No Current occupational status: employed 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 1. Little interest or pleasure in doing things: not at all 2. Feeling down, depressed, or hopeless: more than half the days 3. Trouble falling or staying asleep, or sleeping too much: several days (sleeping less ) 4. Feeling tired or having little energy: several days 5. Poor appetite or overeating: not at all 6. Feeling bad about yourself - or that you are a failure or have let yourself or your family down: several days 7. Trouble concentrating on things, such as reading the newspaper or watching television: several days 8. Moving or speaking so slowly that other people could have noticed. Or the opposite - being so fidgety or restless that you have been moving around a lot more than usual: not at all 9. Thoughts that you would be better off or of hurting yourself in some way: not at all Total score: 6 Depression Screening Interpretation: Negative Depression Screening Done: Yes 85490 - PHQ-9 Billing: Yes Source: Developed by Drs. Binu Calhoun, Savannah Calvillo, Melquiades Hale and colleagues, with an educational gallo from [employer]. Thrive Questionnaire Date Thrive assessed: 01/30/24 Are you currently unemployed and looking for a job?: No AUDIT C Alcohol Use Questionnaire (AUDIT-C) 1. How often do you have a drink containing alcohol?: Never 2. How many drinks containing alcohol do you have on a typical day when you are drinking?: 1 or 2 3. How often do you have six or more drinks on one occasion?: Never Total Score: 0 Score Reviewed/Action Taken: Yes (reviewed, she reports not drinking every day. ) MACHO-7 AMB Questionnaire MACHO-7 Date MACHO - 7 assessed: 10/24/23 Source: Developed by Drs. Binu Calhoun, Melquiades Hazel and colleagues, with an educational gallo from [employer]. Physical exam (Primary Care) Vital Signs: Last Vital Signs Pulse 78 06/17/24 11:37 BP 144/82 H 06/17/24 11:37 Pulse Ox 98 06/17/24 11:37 Oxygen Delivery Method Room Air 06/17/24 11:37 BMI result Body Mass Index 22.3 Tobacco/Smoking Status: Tobacco use Status Tobacco use date assessed 01/30/24 06/17/24 11:38 Patient Tobacco Use Status Former Tobacco user 06/17/24 11:38 Tobacco use type Cigarette 06/17/24 11:38 e-Cigarette/Vaping Use Never Used 06/17/24 11:38 PHQ-9: PHQ-9 Score PHQ-9: Total score 6 06/17/24 11:57 Depression Screening Interpretation: Negative Thrive Assessment: Date of Thrive Assessment Date Thrive assessed 01/30/24 06/17/24 11:38 Const General: alert; No acute distress Eyes Conjunctivae: conjunctivae normal Resp Auscultation: clear to auscultation bilaterally Cardio Rate: regular rate Rhythm: regular rhythm GI Inspection: Yes normal to inspection Extrem General: Yes normal to inspection and No edema Assessment and Plan Assessment & Plan (1) Hypertension: Code(s): I10 - Essential (primary) hypertension Plan: Continue with blood pressure medication. Decrease salt intake and exercise follows up with Nephrology has been placed on carvedilol 25 mg twice a day and spironolactone 25 mg once a day (2) Hypercholesterolemia: Code(s): E78.00 - Pure hypercholesterolemia, unspecified Plan: Avoid fried foods, chicken skin, eggs, butter margarine, pastries and meat. Be it pork or beef they have a lot of cholesterol on atorvastatin 10 mg once a day 02/16/2024 last blood (3) Tobacco abuse: Comment: discussed about smoking 09/2022 Code(s): Z72.0 - Tobacco use Plan: Strongly advised to stop smoking! (4) Generalized anxiety disorder: Comment: Declined counseling Code(s): F41.1 - Generalized anxiety disorder Plan: Continue with present medication as needed (5) Colon cancer screening: Code(s): Z12.11 - Encounter for screening for malignant neoplasm of colon Plan: Patient is reminded about colonoscopy (6) Knee pain, left: Code(s): M25.562 - Pain in left knee Orders: Orders XR knee LT 1V Today M25.562 - Pain in left knee Referrals Gastroenterology Referral Z12.11 - Encounter for screening for malignant neoplasm of colon Medications: New meloxicam 7.5 mg PO DAILY 14 tabs 0RF M25.562 - Pain in left knee Refilled sertraline 25 mg PO DAILY 90 tabs 0RF F41.1 - Generalized anxiety disorder atorvastatin 10 mg PO DAILY 90 tabs 2RF E78.00 - Pure hypercholesterolemia, unspecified Discontinued oxycodone-acetaminophen 5-325 mg Partial Fill upon patient request. Discontinued Reason: Patient Completed Course 1 tab PO Q6H PRN 5 tabs 0RF pain Coding Level of Care Code Est Pt Level 4 (33246) Diagnoses Primary hypertension I10 Hypercholesterolemia E78.00 Tobacco abuse Z72.0 Generalized anxiety disorder F41.1 Colon cancer screening Z12.11 Knee pain, left M25.562
== END 2024-06-17 12:25 | disposition home or self-care (01) ==
PROVIDERS: PCP Internal Medicine; Visit Provider Internal Medicine
DX: I10 Essential (primary) hypertension (principal); E78.00 Pure hypercholesterolemia, unspecified; Z72.0 Tobacco use; F41.1 Generalized anxiety disorder; Z12.11 Encounter for screening for malignant neoplasm of colon; M25.562 Pain in left knee

== ENCOUNTER → 2024-06-17 11:33 | Outpatient (BNVA) | payer OTHER, SELFPAY | PROVIDERS: PCP Internal Medicine; Visit Provider Internal Medicine | DX: I10 Essential (primary) hypertension (principal); E78.00 Pure hypercholesterolemia, unspecified; F41.1 Generalized anxiety disorder; M25.562 Pain in left knee; Z79.899 Other long term (current) drug therapy; Z72.0 Tobacco use | CPT/HCPCS: 96127 ==

== ENCOUNTER 2024-07-22 11:37 | Outpatient (AMB) | payer OTHER, SELFPAY ==
--- NOTE | 2024-07-22 11:42 | MHC.OFFWIV ---
Intake Vital Signs 07/22/24 11:43 Height 5 ft 4 in Weight 130 lb BMI 22.3 BP 130/98 H Blood Pressure Location Lt brachial Position Sitting Pulse 80 Pulse Source Pulse Oximeter Temp 99 F Temp Source Oral Pulse Oximetry (%) 98 Oxygen Delivery Method Room Air Intake Visit Reasons: EP coughing, chest congestion, headache Intake Note: Patient here for cough, chest congestion and headache which has been going on for 1 1/2 weeks Patient Tobacco Use Status: Former Tobacco user Allergies azithromycin [Zithromax Z-Issac] Allergy (Unknown, Verified 07/22/24 11:43) rash, hives lisinopril Allergy (Unknown, Verified 07/22/24 11:43) muscle cramps metoprolol Allergy (Unknown, Verified 07/22/24 11:43) bruises simvastatin Allergy (Unknown, Verified 07/22/24 11:43) face swelling amlodipine Adverse Reaction (Intermediate, Verified 07/22/24 11:43) Reflex tachycardia Do you need a note to return to daycare/school/sports/work: No HPI EP coughing, chest congestion, headache HPI Details This note is constructed using voice recognition software. While every effort has been made to ensure accuracy, human resources intern errors may have been included. The patient is a 53 year old female who presents to the clinic today with cough, congestion, and intermittent headache for the last week and a half. She denies fever, chills, body aches, shortness of breath. The only sick contact she has as her grandchild. She has been taking Coricidin HBP which has not really helped much. She has also been using cough drops. She reports that the headache is worse with a cough, as well as she is getting some chest tightness with the cough. She denies heartburn, chest pain. [facility] Medical History COVID-19 virus infection Hypercholesterolemia Hypertension Tobacco abuse Anxiety Alcohol abuse Surgical History History of tubal ligation History of appendectomy Family History Father Diabetes Hypertension CVD (cardiovascular disease) Stroke Mother Diabetes Hypertension Cervical cancer Sister Uterine cancer Maternal Aunt Cervical cancer Social History Housing: House Alcohol intake: current Alcohol intake frequency: holidays/special occasions only Patient Tobacco Use Status: Former Tobacco user Tobacco use type: Cigarette Cigarettes Per Day: 10 e-Cigarette/Vaping Use: Never Used Second Hand Smoke Exposure: No Substance Use Type: Marijuana service: No Current occupational status: employed 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, 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 Current occupational exposures/hazards: No Cognitive needs: No Hearing needs: No Vision needs: No Review of Systems Const All systems reviewed & are unremarkable except as noted in HPI and below Physical Exam Vital Signs: Last Vital Signs Temp 99 F 07/22/24 11:43 Pulse 80 07/22/24 11:43 BP 130/98 H 07/22/24 11:43 Pulse Ox 98 07/22/24 11:43 Oxygen Delivery Method Room Air 07/22/24 11:43 BMI result Body Mass Index 22.3 Const General: cooperative, healthy appearing, comfortable and no acute distress Orientation/consciousness: patient oriented x3 Limitations: no limitations HEENT Head: Yes normal to inspection Ears: hearing grossly normal bilaterally, external ears normal and TM abnormal retracted General nose exam: Normal external nose present, No nasal discharge present and Abnormal mucous membranes and turbinates present boggy and pale Face and sinus: Yes normal facial exam and Yes sinuses nontender Mouth: Normal oral and palatal mucosa present and moist mucous membranes Throat: Yes tonsils normal, Yes uvula midline, Yes posterior oropharynx abnormal (Erythema), Yes postnasal drainage and Yes cobblestoning Eyes General: appearance normal, both eyes and all related structures Neck Neck: Yes normal visual inspection Resp Effort & Inspection: normal respiratory effort, able to speak in complete sentences, Actively coughing, no respiratory distress, not tachypneic, no tripod positioning and no use of accessory muscles Auscultation: clear to auscultation bilaterally Cardio Rate: regular rate Rhythm: regular rhythm Heart sounds: normal S1 and S2 Skin General skin exam: no rashes or lesions noted Neuro General: patient oriented x3 Cranial nerves: Yes CN's II-XII intact bilaterally Extrem General: Yes normal to inspection and Yes no clubbing, cyanosis or edema Assessment & Plan Assessment & Plan (1) Allergic rhinitis: Code(s): J30.9 - Allergic rhinitis, unspecified Qualifiers: Allergic rhinitis trigger: pollen Allergic rhinitis seasonality: seasonal Qualified Code(s): J30.1 - Allergic rhinitis due to pollen 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 Supportive measures encouraged and reviewed. Advised patient to try a Flonase nasal spray and second-generation antihistamine such as Zyrtec, Claritin, Annika or similar. Advised consideration of sinus rinse if needed. In the past she has been prescribed hydroxyzine for allergies, and this has helped. Prescription for hydroxyzine sent to requested pharmacy. Advised patient to follow up with primary care provider with worsening or failure to resolve. Plan See above for full details and plan. Medications: Refilled hydroxyzine HCl 25 mg PO TID 60 tabs 0RF L50.8 - Other urticaria Coding Level of Care Code Est Pt Level 3 (52377) Diagnoses Seasonal allergic rhinitis due to pollen J30.1 Allergic rhinitis trigger: pollen Allergic rhinitis seasonality: seasonal
[2024-07-22 11:43] VITALS: BP 130/98; PULSE 80; TEMP 37.2; O2SAT 98; BMI 22.3
== END 2024-07-22 12:59 | disposition home or self-care (01) ==
PROVIDERS: PCP Internal Medicine; Visit Provider Registered Nurse
DX: J30.1 Allergic rhinitis due to pollen (principal)

== ENCOUNTER → 2024-07-22 11:37 | Outpatient (BNVA) | payer OTHER, SELFPAY | PROVIDERS: PCP Internal Medicine; Visit Provider Registered Nurse ==

== ENCOUNTER 2024-12-02 15:24 | Outpatient (AMB) | payer OTHER, SELFPAY ==
[2024-12-02 15:38] VITALS: BP 122/80; PULSE 81; TEMP 36.8; O2SAT 99; BMI 22.3
--- NOTE | 2024-12-02 15:38 | MHC.OFFWIV ---
Intake Vital Signs 12/02/24 15:38 Height 5 ft 4 in Weight 130 lb BMI 22.3 BP 122/80 Blood Pressure Location Lt brachial Position Sitting Pulse 81 Pulse Source Pulse Oximeter Temp 98.3 F Temp Source Oral Pulse Oximetry (%) 99 Intake Visit Reasons: EP TB test (ok'd by Nicol) Patient Tobacco Use Status: Former Tobacco user Allergies azithromycin [Zithromax Z-Issac] Allergy (Unknown, Verified 12/02/24 15:39) rash, hives lisinopril Allergy (Unknown, Verified 12/02/24 15:39) muscle cramps metoprolol Allergy (Unknown, Verified 12/02/24 15:39) bruises simvastatin Allergy (Unknown, Verified 12/02/24 15:39) face swelling amlodipine Adverse Reaction (Intermediate, Verified 12/02/24 15:39) Reflex tachycardia Do you need a note to return to daycare/school/sports/work: No HPI HPI Comments History of Present Illness Details 54 y/o female who presents to the walk in clinic asking for TB screening for Work. Denies any respiratory Symptoms at this time. [facility] Medical History Screening-pulmonary TB COVID-19 virus infection Hypercholesterolemia Hypertension Tobacco abuse Anxiety Alcohol abuse Surgical History History of tubal ligation History of appendectomy Family History Father Diabetes Hypertension CVD (cardiovascular disease) Stroke Mother Diabetes Hypertension Cervical cancer Sister Uterine cancer Maternal Aunt Cervical cancer Social History Housing: House Alcohol intake: current Alcohol intake frequency: holidays/special occasions only Patient Tobacco Use Status: Former Tobacco user Tobacco use type: Cigarette Cigarettes Per Day: 10 e-Cigarette/Vaping Use: Never Used Second Hand Smoke Exposure: No Substance Use Type: Marijuana service: No Current occupational status: employed 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, 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 Current occupational exposures/hazards: No Cognitive needs: No Hearing needs: No Vision needs: No Review of Systems Const All systems reviewed & are unremarkable except as noted in HPI and below Physical Exam Vital Signs: Last Vital Signs Temp 98.3 F 12/02/24 15:38 Pulse 81 12/02/24 15:38 BP 122/80 12/02/24 15:38 Pulse Ox 99 12/02/24 15:38 BMI result Body Mass Index 22.3 Const General: cooperative, comfortable and no acute distress Orientation/consciousness: patient oriented x3 Resp Effort & Inspection: normal respiratory effort Auscultation: clear to auscultation bilaterally Cardio Heart sounds: S1 normal heart sound present and S2 normal heart sound present Neuro General: patient oriented x3, gait normal and moves all extremities Psych Speech and movement: Normal speech and movement present Assessment & Plan Assessment & Plan (1) Screening-pulmonary TB: Code(s): Z11.1 - Encounter for screening for respiratory tuberculosis Plan: Ordered T-Spot Orders: Orders T Spot TB Today Z11.1 - Encounter for screening for respiratory tuberculosis Coding Level of Care Code Est Pt Level 4 (73676) Diagnoses Screening-pulmonary TB Z11.1 Time Spent (min) 20
== END 2024-12-02 16:04 | disposition home or self-care (01) ==
PROVIDERS: PCP Internal Medicine; Visit Provider Nurse Practitioner Family
DX: Z11.1 Encounter for screening for respiratory tuberculosis (principal)

== ENCOUNTER → 2024-12-02 15:24 | Outpatient (BNVA) | payer SELFPAY | PROVIDERS: PCP Internal Medicine ==

== ENCOUNTER 2024-12-08 12:50 | Outpatient (AMB) | payer SELFPAY ==
--- NOTE | 2024-12-08 13:07 | AM.OFFVISNUR ---
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 unit/0.1 mL intradermal injection solution Performing Provider: Marzena Carmen MD [facility] [facility] [place] 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
== END 2024-12-08 13:11 | disposition home or self-care (01) ==
LOC: HO.HMCH 12:51
PROVIDERS: PCP Internal Medicine; Visit Provider Internal Medicine
DX: Z11.1 Encounter for screening for respiratory tuberculosis (principal)

== ENCOUNTER → 2024-12-08 12:50 | Outpatient (BNVA) | payer SELFPAY | PROVIDERS: PCP Internal Medicine; Visit Provider Internal Medicine | DX: Z11.1 Encounter for screening for respiratory tuberculosis (principal) | CPT/HCPCS: 86580 ==

== ENCOUNTER 2025-07-01 08:27 | Emergency (ER) | payer OTHER, SELFPAY ==
[2025-07-01 08:35] VITALS: BP 164/87; PULSE 75; RESP 16; TEMP 36.4; O2SAT 100; BMI 24.9
--- NOTE | 2025-07-01 08:38 | ECG_ITS ---
Test Reason : EPIGASTRIC PAIN Blood Pressure : */* mmHG Vent. Rate : 66 BPM Atrial Rate : 66 BPM P-R Int : 160 ms QRS Dur : 84 ms QT Int : 416 ms P-R-T Axes : 63 40 43 degrees QTcB Int : 436 ms Normal sinus rhythm Normal ECG When compared with ECG of 11-May-2024 10:36, Premature ventricular complexes are no longer Present Referred By: Generic ED Physician Electronically Signed By: DARA DAY
--- NOTE | 2025-07-01 08:59 | ED.GENADULT ---
HPI - General Adult General Chief complaint: Abdominal Pain Stated complaint: Not Feeling Well Time Seen by Provider: 07/01/25 08:44 Source: patient and family ( at bedside) Mode of arrival: ambulatory Limitations: no limitations History of Present Illness ED Provider: DOT Sheth HPI narrative: 54-year-old female with medical history of HLD, HTN, anxiety, presents to the ED due to 4 days of nausea, chills, body aches, and 2 days of epigastric pain. Patient states epigastric pain is intermittent and describes it as a dull ache and burning sensation that is worse after eating. Patient states the epigastric pain feels somewhat like heartburn, and has been drinking water to calm the sensation without effect. Patient also reports 2 days of black watery diarrhea and states she is able to go all day without an episode but has been waking up in the middle of the night around 3 am with diarrhea. Patient reports her appetite has decreased over the last 4 days but has been able to keep food and water down without vomiting. Patient denies recent travel, alcohol consumption, or sick contacts. Denies chest pain, SOB, fevers, vomiting, urinary symptoms Related Data Previous Rx's ?Medication ?Instructions ?Recorded lorazepam 0.5 mg tablet 0.5 mg PO BEDTIME PRN anxiety 30 06/30/23 days #30 tabs acetaminophen 500 mg tablet 500 mg PO DAILY PRN fever #30 tabs 10/21/23 sumatriptan succinate 50 mg tablet See Rx Instructions PO .COMPLEX 12/15/23 (Imitrex) #14 tabs blood pressure monitor (Blood #1 ea 01/30/24 Pressure Kit) triamcinolone acetonide 0.1 % 1 appl topical BID #454 grams 02/26/24 topical cream meloxicam 7.5 mg tablet 7.5 mg PO DAILY #14 tabs 06/17/24 sertraline 25 mg tablet 25 mg PO DAILY #90 tabs 06/17/24 hydroxyzine HCl 25 mg tablet 25 mg PO TID #60 tabs 07/22/24 carvedilol 25 mg tablet 25 mg PO BID #180 tabs 12/13/24 atorvastatin 10 mg tablet 10 mg PO DAILY #90 tabs 04/13/25 cyclobenzaprine 10 mg tablet 10 mg PO TID PRN for cramps #90 04/13/25 caps spironolactone 25 mg tablet 25 mg PO DAILY #90 tabs 06/21/25 omeprazole 20 mg capsule,delayed 20 mg PO DAILY #14 caps 07/01/25 release Allergies Allergy/AdvReac Type Severity Reaction Status Date / Time azithromycin (Zithromax Allergy Unknown rash, hives Verified 07/01/25 08:35 Z-Issac) lisinopril Allergy Unknown muscle Verified 07/01/25 08:35 cramps metoprolol Allergy Unknown bruises Verified 07/01/25 08:35 simvastatin Allergy Unknown face Verified 07/01/25 08:35 swelling amlodipine AdvReac Intermediate Reflex Verified 07/01/25 08:35 tachycardia Review of Systems Review of Systems: CONST: Negative for fever. POS body aches, chills HENT: Negative for neck pain/stiffness, headache, congestion, sore throat, swelling. EYES: Negative for discharge/pain or vision changes. RESP: Negative for cough/hemoptysis and shortness of breath. CV: Negative chest pain, difficulty breathing, palpitations. ABD: Negative vomiting. POS epigastric pain, nausea : Negative increase frequency, dysuria, blood in urine or stool. MUSC: Negative for muscle aches, edema. SKIN: Negative rash, lesions/sores. NEURO: Negative headache, dizziness, weakness. Yes all other systems are reviewed and are negative PMFSH Past Medical History Attestation statement: The following information was validated with the patient. Source: old records reviewed and nursing notes reviewed Medical History Screening-pulmonary TB COVID-19 virus infection Hypercholesterolemia Hypertension Tobacco abuse Anxiety Alcohol abuse Surgical History History of tubal ligation History of appendectomy Family History Family History Father Diabetes Hypertension CVD (cardiovascular disease) Stroke Mother Diabetes Hypertension Cervical cancer Sister Uterine cancer Maternal Aunt Cervical cancer Social History Social History Housing: House Alcohol intake: current Alcohol intake frequency: holidays/special occasions only Patient Tobacco Use Status: Former Tobacco user Tobacco use type: Cigarette Cigarettes Per Day: 10 e-Cigarette/Vaping Use: Never Used Second Hand Smoke Exposure: No Substance Use Type: Marijuana Advance Directives: No Advance Directives Information Provided: Yes service: No Current occupational status: employed 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 HEENT: ?NC, AT. MMM. EOMI, clear conjunctiva, oropharynx clear. NECK: ?Supple without lymphadenopathy.? No stiffness or restricted ROM. HEART:? Normal rate and regular rhythm, normal S1/S2, no m/r/g LUNGS:? CTAB, moving air well. No crackles or wheezes are heard. ABDOMEN: ?Soft, nondistended, no rigidity, negative Rand's sign, no rebound tenderness, diffuse tenderness of epigastric and periumbilical regions, no overlying skin changes, no rashes BACK: No CVAT, no obvious deformity. EXTREMITIES: ?Without cyanosis, clubbing or edema. NEUROLOGICAL: ?Grossly nonfocal. Alert and oriented, moving all 4 extremities. Observed to ambulate with normal gait. Skin: ?Warm and dry without any rash. Course Reevaluation(s) Reevaluation #1: Patient was medicated with IV fluids, 1 g IV Tylenol, GI cocktail of 15 mL Maalox, 15 mL viscous lidocaine. Patient states symptoms have improved considerably after IV fluids and medication. I discussed stool sample with patient however she feels like she is unable to move her bowels while in the department. Time: 10:52 Medications Administered Discontinued Medications Generic Name Dose Route Start Last Admin Trade Name Freq PRN Reason Stop Dose Admin Al Hydroxide/Mg Hydroxide 15 ml 07/01/25 09:55 07/01/25 10:06 Magnesium Hydrox/Alum Hydrox 30 Ml Oral.Susp PO 07/01/25 09:56 15 ml ONCE ONE Administration Lactated Ringer's 1,000 mls @ 999 mls/hr 07/01/25 09:53 07/01/25 11:15 Lr IV 07/01/25 10:53 Infused .Q1H1M ONE Infusion Acetaminophen 1,000 mg in 100 mls @ 400 mls/hr 07/01/25 09:55 07/01/25 11:15 Ofirmev IV 07/01/25 10:09 Infused ONCE ONE Infusion Lidocaine HCl 15 ml 07/01/25 09:55 07/01/25 10:06 Lidocaine Hcl Viscous 2 % 15 Ml Solution MUCOUS MEM 07/01/25 09:56 15 ml ONCE ONE Administration Ondansetron HCl 4 mg 07/01/25 09:53 07/01/25 10:07 Ondansetron Hcl 4 Mg/2 Ml Vial IVPUSH 07/01/25 09:54 4 mg ONCE ONE Administration Medical Decision Making Medical Decision Making [facility] Narrative: 54-year-old female with medical history of HLD, HTN, anxiety, presents to the ED due to 4 days of nausea, chills, body aches, and 2 days of intermittent dull aching, burning epigastric pain that is worse after eating. Patient has experienced 2 days of black watery diarrhea, that wakes her up from sleep around 3:00 a.m. patient reports decreased appetite over the last 4 days. Denies increased alcohol consumption, recent travel, sick contacts. Patient is passing flatus VS on initial observation- BP 164/87, pulse rate of 75, respiratory rate of 16, afebrile with oral temp of 97.5?, O2 saturation 100% on room air. On physical exam lungs clear to auscultation bilaterally, cardiac exam reveals normal rate and rhythm without murmurs/rubs/gallops, abdomen is soft, nondistended, no rigidity, no guarding, negative Rand's, patient is surgically without appendix, mild tenderness to the epigastric region, epigastric pain does not radiate. EKG reveals normal sinus rhythm without ST-elevation/depression, arrhythmia, lengthened QT, initial troponin 5.5, 2nd 4.0- Less likely ACS Labs without leukocytosis/leukopenia, H&H stable, lipase WNL at 16, ESR/CRP WNL, no evidence of electrolyte abnormality. Viral serology negative. Stool occult blood negative. Patient was medicated with IV fluids, 1 g IV Tylenol, GI cocktail of 15 mL Maalox, 15 mL viscous lidocaine. Patient's symptoms have subsided considerably after medication. Blood work without leukocytosis/leukopenia, inflammatory markers WNL, lipase WNL, liver function tests WNL. EKG with NSR, troponins x2 WNL. UA negative for blood or infection. Occult blood stool negative. I discussed with the patient's stool sample for 2 days of watery diarrhea, however she is unable to move her bowels in the department today. Diarrhea is not associated with any red flag symptoms such as recent travel, recent antibiotic use, fever, or vomiting. I discussed with patient that she is able to follow up with her primary care doctor who can order stool study and/or referral to GI if her symptoms persist. Vital signs on re observation show BP has improved to 137/89. Patient tolerated PO challenge of gingerale and crackers without nausea or return of abdominal pain. Patient well enough to go home for self care, I discussed with patient this may be related to viral syndrome VS GERD. She is not on PPI medication at home. Will discharge with 2 weeks of omeprazole to trial improvement of symptoms. I counseled patient to follow up with PCP for further evaluation and management of abdominal pain. I counseled patient on strict return precautions. Patient and her are in agreement with the plan. Differential Diagnosis Differential Diagnoses: The differential diagnosis associated with the presentation includes ACS Pancreatitis COVID Flu Viral illness Gastritis GERD Admission/Observation Consideration of admission/observation: Escalation of care including admission/observation considered Lab Data MDM Lab Attestation statement: I reviewed the patient's lab results. 07/01/25 09:04 07/01/25 09:04 Labs: Lab Results 07/01/25 07/01/25 07/01/25 Range/Units 09:04 09:09 10:10 WBC 6.9 (4.8-10.8) X10*3/uL RBC 4.02 L (4.20-5.50) X10*6/uL Hgb 13.3 (12.0-16.0) g/dl Hct 39.5 (37.0-47.0) % MCV 98.3 H (80.0-98.0) fL MCH 33.1 H (27.0-33.0) pg MCHC 33.7 (31.0-35.0) g/dl RDW 13.0 (11.0-16.0) % Plt Count 288 (160-400) X10*3/uL MPV 10.4 (9.4-12.3) fL Immature Gran % (Auto) 0.3 (0.0-0.4) % Neut % (Auto) 74.2 H (45-73) % Lymph % (Auto) 17.2 L (20-40) % [place] % (Auto) 6.4 (2-11) % Eos % (Auto) 1.2 (0-4) % Baso % (Auto) 0.7 (0-2) % Lymph # (Auto) 1.2 (1.2-4.9) X10*3/uL [place] # (Auto) 0.4 (0.1-1.2) X10*3/uL Eos # (Auto) 0.1 (0.0-0.4) X10*3/uL Baso # (Auto) 0.1 (0.0-0.2) X10*3/uL Abs Immat Gran (auto) 0.02 (0.00-0.03) X10*3/uL Absolute Neuts (auto) 5.1 (2.0-8.3) x10*3/uL Absolute Nucleated RBC 0.000 (0.0-0.012) X10*3/uL Nucleated RBC % (auto) 0.0 (0.0-0.2) /100WBC ESR 12 (0-20) MM/HR Sodium 139 (135-145) mmol/L Potassium 3.8 (3.3-5.1) mmol/L Chloride 105 (96-108) mmol/L Carbon Dioxide 27 (22-29) mmol/L Anion Gap 11 L (12-20) BUN 10 (9-16) mg/dL Creatinine 0.86 (0.5-1.4) mg/dL Estim Creat Clear Calc 69.8 Estimated GFR > 60 Random Glucose 98 (60-115) mg/dL Calcium 10.0 (8.4-10.2) mg/dL Total Bilirubin 0.6 (0.0-1.0) mg/dL AST 30 (5-31) U/L ALT 23 (0-31) U/L Alkaline Phosphatase 104 (39-117) U/L Troponin I High Sens 5.5 D (<3.5-17.0) ng/L C-Reactive Protein < 0.04 (< or = 0.50) mg/dL Total Protein 7.7 (6.5-8.0) g/dL Albumin 4.9 (3.5-5.0) g/dL Lipase 16 (8-78) U/L Urine Color Yellow Urine Appearance Clear Urine pH 5.5 (5.0-9.0) Ur Specific [place] 1.010 (1.005-1.025) Urine Protein Negative (Neg-Trace) mg/dL Urine Glucose (UA) Negative (Negative) mg/dL Urine Ketones 15 (Negative) mg/dL Urine Blood Negative (Negative) Urine Nitrite Negative (Negative) Ur Leukocyte Esterase Negative (Negative) Stool Occult Blood NEGATIVE (NEGATIVE) COVID-19 ([place]) Negative (Negative) COVID-19 Clin Com See Note Influenza Type A (ALVIN) Negative (Negative) Influenza Type B (ALVIN) Negative (Negative) Influenza A & B Note See Note 07/01/25 Range/Units 10:47 WBC (4.8-10.8) X10*3/uL RBC (4.20-5.50) X10*6/uL Hgb (12.0-16.0) g/dl Hct (37.0-47.0) % MCV (80.0-98.0) fL MCH (27.0-33.0) pg MCHC (31.0-35.0) g/dl RDW (11.0-16.0) % Plt Count (160-400) X10*3/uL MPV (9.4-12.3) fL Immature Gran % (Auto) (0.0-0.4) % Neut % (Auto) (45-73) % Lymph % (Auto) (20-40) % [place] % (Auto) (2-11) % Eos % (Auto) (0-4) % Baso % (Auto) (0-2) % Lymph # (Auto) (1.2-4.9) X10*3/uL [place] # (Auto) (0.1-1.2) X10*3/uL Eos # (Auto) (0.0-0.4) X10*3/uL Baso # (Auto) (0.0-0.2) X10*3/uL Abs Immat Gran (auto) (0.00-0.03) X10*3/uL Absolute Neuts (auto) (2.0-8.3) x10*3/uL Absolute Nucleated RBC (0.0-0.012) X10*3/uL Nucleated RBC % (auto) (0.0-0.2) /100WBC ESR (0-20) MM/HR Sodium (135-145) mmol/L Potassium (3.3-5.1) mmol/L Chloride (96-108) mmol/L Carbon Dioxide (22-29) mmol/L Anion Gap (12-20) BUN (9-16) mg/dL Creatinine (0.5-1.4) mg/dL Estim Creat Clear Calc Estimated GFR Random Glucose (60-115) mg/dL Calcium (8.4-10.2) mg/dL Total Bilirubin (0.0-1.0) mg/dL AST (5-31) U/L ALT (0-31) U/L Alkaline Phosphatase (39-117) U/L Troponin I High Sens 4.0 (<3.5-17.0) ng/L C-Reactive Protein (< or = 0.50) mg/dL Total Protein (6.5-8.0) g/dL Albumin (3.5-5.0) g/dL Lipase (8-78) U/L Urine Color Urine Appearance Urine pH (5.0-9.0) Ur Specific [place] (1.005-1.025) Urine Protein (Neg-Trace) mg/dL Urine Glucose (UA) (Negative) mg/dL Urine Ketones (Negative) mg/dL Urine Blood (Negative) Urine Nitrite (Negative) Ur Leukocyte Esterase (Negative) Stool Occult Blood (NEGATIVE) COVID-19 ([place]) (Negative) COVID-19 Clin Com Influenza Type A (ALVIN) (Negative) Influenza Type B (ALVIN) (Negative) Influenza A & B Note Independent Interpretation I performed an independent interpretation of an: EKG Interpretation: I independently interpreted the EKG which revealed normal sinus rhythm without ST-elevation/depression Vent. Rate : 66 BPM Atrial Rate : 66 BPM P-R Int : 160 ms QRS Dur : 84 ms QT Int : 416 ms P-R-T Axes : 63 40 43 degrees QTcB Int : 436 ms Normal sinus rhythm Normal ECG When compared with ECG of 11-May-2024 10:36, Premature ventricular complexes are no longer Present Independent Historian Clinical information obtained from an independent historian. History obtained from or confirmed by: Spouse ( at bedside corroborating history) External Record Review External record reviewed: Inpatient record, Office record and Outpatient record Tests considered The following testing was considered but not selected: I considered CT abdomen and pelvis however patient is very well-appearing, afebrile, without tachycardia. Physical exam reveals very mild tenderness of the epigastric region without radiation, abdomen is soft, non distended, without guarding, negative murphys sign, surgically absent appendix, no peritoneal signs, afebrile. Labs without leukocytosis/leukopenia, lipase WNL, no elevation of inflammatory markers ESR/CRP. Urine without blood or infection. Epigastric pain has improved considerably after medication, no indication for advanced imaging at this time. Chronic Conditions Patient?s care impacted by: Hypertension and Other (Anxiety, HLD) Discharge Plan Discharge Clinical Impression: Epigastric abdominal pain, Diarrhea Patient Disposition: Home, Self-Care Additional Instructions: You were evaluated in the ED today due to upper abdominal pain, body aches, chills, and 2 days of diarrhea. Your lab work was reassuring that there is no infection, your lipase which is an enzyme the pancreas gives off when under stress or damage was normal, your inflammatory markers including ESR/CRP were normal, your liver function tests were normal. Your vital signs were reassuring today as you were afebrile, without rapid heartbeat. Your urine was negative for blood or infection. Your EKG was normal today, your troponins which is an enzyme that is elevated when the heart is under stress or damage was normal. You were medicated with IV fluids, IV Tylenol, Maalox and viscous lidocaine to coat your stomach with good effect on your symptoms. Your symptoms maybe due to a viral syndrome, or possibly GERD. You will be prescribed 2 weeks of an antacid called omeprazole please take this daily for the next 2 weeks to see if this improves your symptoms. I also recommend you follow up with your PCP to ensure improvement of abdominal pain, and diarrhea. You may need stool studies to evaluate cause of diarrhea however you were unable to move your bowels in the department today. Please return to the emergency department if you experience fevers over 100.4? that are not controlled by Tylenol/Motrin, worsening abdominal pain, blood or mucus in the diarrhea, persistent diarrhea, chest pain, shortness of breath, or any new/worsening/concerning symptoms. Prescriptions: New omeprazole 20 mg capsule,delayed release(DR/EC) 20 mg PO DAILY Qty: 14 0RF No Action lorazepam 0.5 mg tablet 0.5 mg PO BEDTIME PRN (Reason: anxiety) 30 Days Qty: 30 0RF acetaminophen 500 mg tablet 500 mg PO DAILY PRN (Reason: fever) Qty: 30 0RF sumatriptan succinate [Imitrex] 50 mg tablet See Rx Instructions PO .COMPLEX Qty: 14 1RF Rx Instructions: take 1 tab at onset of headache; if no relief may repeat 1 tab after at least 2 hrs; max = 4 tabs/24 hr PO carvedilol 25 mg tablet 25 mg PO BID Qty: 180 1RF atorvastatin 10 mg tablet 10 mg PO DAILY Qty: 90 2RF cyclobenzaprine 10 mg tablet 10 mg PO TID PRN (Reason: for cramps) Qty: 90 0RF spironolactone 25 mg tablet 25 mg PO DAILY Qty: 90 1RF triamcinolone acetonide 0.1 % cream 1 appl topical BID Qty: 454 0RF (DME) blood pressure monitor [Blood Pressure Kit] Kit See Rx Instructions .ROUTE .MEDSUPPLY Qty: 1 0RF Rx Instructions: As directed sertraline 25 mg tablet 25 mg PO DAILY Qty: 90 0RF meloxicam 7.5 mg tablet 7.5 mg PO DAILY Qty: 14 0RF hydroxyzine HCl 25 mg tablet 25 mg PO TID Qty: 60 0RF Print Language: Bahamian
[2025-07-01 09:14] LABS: MANUAL DIFF FLAG NO
[2025-07-01 09:17] LABS: OBS Int Ctl Valid YES; OBS1 NEGATIVE (NEGATIVE)
[2025-07-01 09:25] LABS: Hematocrit 39.5 % (37.0-47.0); Hemoglobin 13.3 g/dl (12.0-16.0); Imm Gran Abs Auto 0.02 X10*3/uL (0.00-0.03); Imm Gran Pct Auto 0.3 % (0.0-0.4); Lymphocytes Absolute Auto 1.2 X10*3/uL (1.2-4.9); Mean Corpuscular HGB Conc 33.7 g/dl (31.0-35.0); Mean Corpuscular Hemoglobin 33.1 pg (27.0-33.0); Mean Corpuscular Volume 98.3 fL (80.0-98.0); NRBC Abs Auto 0.000 X10*3/uL (0.0-0.012); NRBC Pct Auto 0.0 /100WBC (0.0-0.2); Platelet Count 288 X10*3/uL (160-400); Red Blood Count 4.02 X10*6/uL (4.20-5.50); White Blood Count 6.9 X10*3/uL (4.8-10.8)
[2025-07-01 09:33] LABS: IDNOW Serial# 08D9AD1C; Influenza B2 Negative (Negative)
[2025-07-01 09:34] LABS: COVID-19 Test Negative (Negative); IDNOW Serial# 6674DD1D
[2025-07-01 09:37] LABS: Troponin-I High Sensitivity 5.5 ng/L (<3.5-17.0)
[2025-07-01 09:39] LABS: Alanine Aminotransferase 23 U/L (0-31); Albumin Level 4.9 g/dL (3.5-5.0); Alkaline Phosphatase 104 U/L (39-117); Anion Gap 11 (12-20); Aspartate Amino Transferase 30 U/L (5-31); Blood Urea Nitrogen 10 mg/dL (9-16); Calcium 10.0 mg/dL (8.4-10.2); Carbon Dioxide 27 mmol/L (22-29); Chloride 105 mmol/L (96-108); Creatinine Clr Calc Pharmacy 69.8; Estimated Glomerular Filt Rate > 60; Lipase 16 U/L (8-78); Potassium 3.8 mmol/L (3.3-5.1); Sodium 139 mmol/L (135-145); Total Protein 7.7 g/dL (6.5-8.0)
[2025-07-01] MEDS: Lactated Ringers 1,000 ML 999 ML IV (10:06)
[2025-07-01] MEDS: Lidocaine HCl Viscous 2 % 15 ML SOLUTION MUCOUS MEM (10:06)
[2025-07-01] MEDS: Magnesium Hydrox/Alum Hydrox 30 ML ORAL.SUSP 15 ML PO (10:06)
[2025-07-01 10:30] LABS: Appearance Urine Clear; Glucose Urine UA Negative (Negative); PH 5.5 (5.0-9.0); Specific Gravity - Urine 1.010 (1.005-1.025)
[2025-07-01 10:31] VITALS: BP 137/89; PULSE 68; RESP 16; TEMP 36.6; O2SAT 100
[2025-07-01 11:10] LABS: Troponin-I High Sensitivity 4.0 ng/L (<3.5-17.0)
[2025-07-01 11:50] VITALS: BP 137/89; PULSE 68; RESP 16; TEMP 36.6; O2SAT 100
== END 2025-07-01 11:50 | disposition home or self-care (01) ==
PROVIDERS: Emergency Provider Emergency Medicine; PCP Internal Medicine
DX: R10.13 Epigastric pain (principal); R19.7 Diarrhea, unspecified; I10 Essential (primary) hypertension; M79.10 Myalgia, unspecified site; R11.0 Nausea; Z11.52 Encounter for screening for COVID-19; Z79.899 Other long term (current) drug therapy
CPT/HCPCS: 36415; 80053; 81003; 82272; 83690; 84484; 85025; 85652; 86140; 87502; 87635; 93005; 96361; 96374; 96375; 99284; J0131; J2405; J7120

== ENCOUNTER → 2025-07-01 08:38 | Outpatient (BNV) | payer OTHER, SELFPAY | PROVIDERS: Emergency Provider Emergency Medicine; PCP Internal Medicine; Visit Provider Internal Medicine | DX: R10.13 Epigastric pain (principal) | CPT/HCPCS: 93010 ==

== ENCOUNTER 2025-08-02 09:34 | Outpatient (REF) | payer OTHER, SELFPAY ==
[2025-08-02 13:33] LABS: Anion Gap 13 (12-20); Blood Urea Nitrogen 11 mg/dL (9-16); Calcium 9.5 mg/dL (8.4-10.2); Carbon Dioxide 27 mmol/L (22-29); Chloride 105 mmol/L (96-108); Estimated Glomerular Filt Rate > 60; Potassium 3.5 mmol/L (3.3-5.1); Sodium 141 mmol/L (135-145)
[2025-08-02 16:24] LABS: CT PCR Urine NOT DETECTED (Not Detect.); NG PCR Urine NOT DETECTED (Not Detect.)
[2025-08-02 16:44] LABS: Bacterial Vaginosis PCR NEGATIVE (Negative); Candida Group PCR DETECTED (Not Detect); Candida glab krusei PCR NOT DETECTED (Not Detect); Trichomonas vaginalis PCR NOT DETECTED (Not Detect)
[2025-08-03 10:29] LABS: HBsAGNum1 0.41 S/CO (0.00-0.99); HIV Num 1 0.06 S/CO (0.00-0.99); Hepatitis B Surface Antigen Negative (Negative); ~HepC Num1 0.06 S/CO (0.00-0.79); ~Hepatitis C Antibody Nonreactive (Nonreactive)
[2025-08-03 10:46] LABS: Syphilis Screen Nonreactive (Nonreactive)
== END 2025-08-02 09:35 | disposition home or self-care (01) ==
LOC: HO.HMGCLDS 09:34
PROVIDERS: Absent Provider Internal Medicine Hypertension Specialist; PCP Internal Medicine; Visit Provider Physician Assistant
DX: N89.8 Other specified noninflammatory disorders of vagina (principal); Z20.2 Contact with and (suspected) exposure to infections with a predominantly sexual mode of transmission; I10 Essential (primary) hypertension; Z11.4 Encounter for screening for human immunodeficiency virus [HIV]; Z11.59 Encounter for screening for other viral diseases
CPT/HCPCS: 36415; 80048; 81515; 86780; 86803; 87340; 87389; 87491; 87591

== ENCOUNTER 2025-08-02 09:34 | Outpatient (AMB) | payer OTHER, SELFPAY ==
[2025-08-02 09:38] VITALS: BP 134/98; PULSE 96; TEMP 36.9; O2SAT 99; BMI 21.3
--- NOTE | 2025-08-02 09:38 | AM.OFFWIN_ITS ---
Intake Vital Signs 08/02/25 09:38 Height 5 ft 4 in Weight 124 lb BMI 21.3 BP 134/98 H Blood Pressure Location Lt brachial Position Sitting Pulse 96 Pulse Source Pulse Oximeter Temp 98.5 F Temp Source Oral Pulse Oximetry (%) 99 Oxygen Delivery Method Room Air Comment High Distolic BP. provider notified-pt not concerned, states is always high Intake Visit Reasons: EP-abdominal pain, std testing Intake Note: pt presents with request for STD testing d/t recent unprotected sex. reports low abdominal pain, vaginal itching and odorless discharge. Patient Tobacco Use Status: Former Tobacco user Allergies azithromycin (Zithromax Z-Issac) Allergy (Unknown, Verified 08/02/25 09:42) rash, hives lisinopril Allergy (Unknown, Verified 08/02/25 09:42) muscle cramps metoprolol Allergy (Unknown, Verified 08/02/25 09:42) bruises simvastatin Allergy (Unknown, Verified 08/02/25 09:42) face swelling amlodipine Adverse Reaction (Intermediate, Verified 08/02/25 09:42) Reflex tachycardia Do you need a note to return to daycare/school/sports/work: No HPI HPI Comments History of Present Illness Details History of Present Illness - The patient is a 54-year-old female pr esenting with vaginal discharge and itching. - The patient reports a white, creamy va ginal discharge without odor, which is not chunky like cottage cheese. - She denies any bleeding, pain with uri nation, or urinary frequency. - The patient reports recent unprotected sexual intercourse with a new partner, raising concerns about potential exposure to sexually transmitted infections. - The patient has a history of celluliti s on the arm, initially thought to be a rash or hive, possibly due to a cat scratch. - She was treated with Keflex, but now p resents with a new rash on the opposite arm, which is itchy, swollen, and erythematous. Review of Systems - Genitourinary: Reports white, creamy v aginal discharge and external itching. Denies bleeding, dysuria, or increased urinary frequency. - Constitutional: Denies fever or back p ain. All systems reviewed and are unremarkable except as noted in HPI Physical Exam General: Cooperative, healthy appearing, comfortable, no acute distress and well developed Orientation: Patient oriented x3 Limitations: No limitations Head: Normal to inspection Ears: Hearing grossly normal bilaterally Nose: Normal External nose present Face and sinus: Normal facial exam Eyes: Appearance normal, both eyes and all related structures Neck: Normal visual inspection and Yes full ROM Respiratory: Normal respiratory effort and able to speak in complete sentences. : normal appearing external labia, no erythema, discharge, or vescicles noted. Skin: no lesions or rashes noted Neuro: Patient oriented x3 Extremities: Normal to inspection PFSH Medical History Vaginal discharge Screening-pulmonary TB COVID-19 virus infection Hypercholesterolemia Hypertension Tobacco abuse Anxiety Alcohol abuse Surgical History History of tubal ligation History of appendectomy Family History Father Diabetes Hypertension CVD (cardiovascular disease) Stroke Mother Diabetes Hypertension Cervical cancer Sister Uterine cancer Maternal Aunt Cervical cancer Social History Housing: House Alcohol intake: current Alcohol intake frequency: holidays/special occasions only Patient Tobacco Use Status: Former Tobacco user Tobacco use type: Cigarette Cigarettes Per Day: 10 e-Cigarette/Vaping Use: Never Used Second Hand Smoke Exposure: No Substance Use Type: Marijuana service: No Current occupational status: employed 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, 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 - Examination revealed normal external genitalia with no visible lesions. - Plan includes performing a bacterial vaginosis swab and an urine test to check for chlamydia and gonorrhea. - Blood tests for syphilis, HIV, and hepatitis were discussed and planned as pt suspects her might have sexual relations outside the marriage and she has had sexual relations with him with no condom protection. (2) Contact with and (suspected) exposure to infections with a predominantly se xual mode of transmission: Code(s): Z20.2 - Contact with and (suspected) exposure to infections with a predominantly sexual mode of transmission Plan: as above Orders: Orders CT NG by PCR Urine Today N89.8 - Other specified noninflammatory disorders of vagina HIV Ab/Ag Today N89.8 - Other specified noninflammatory disorders of vagina, Z11.3 - Encounter for screening for infections with a predominantly sexual mode of transmission Syphilis Screen Today N89.8 - Other specified noninflammatory disorders of vagina, Z11.3 - Encounter for screening for infections with a predominantly sexual mode of transmission Bacterial Vaginosis Panel Today N89.8 - Other specified noninflammatory disorders of vagina, Z11.3 - Encounter for screening for infections with a predominantly sexual mode of transmission Hepatitis B Surface Antigen Today N89.8 - Other specified noninflammatory disorders of vagina, Z11.3 - Encounter for screening for infections with a predominantly sexual mode of transmission Hepatitis C Antibody Today N89.8 - Other specified noninflammatory disorders of vagina, Z11.3 - Encounter for screening for infections with a predominantly sexual mode of transmission Coding Level of Care Code Est Pt Level 4 (17990) Diagnoses Vaginal discharge N89.8 Contact with and (suspected) exposure to infections with a predominantly sexual mode of transmission Z20.2
== END 2025-08-02 10:19 | disposition home or self-care (01) ==
PROVIDERS: PCP Internal Medicine; Visit Provider Physician Assistant
DX: N89.8 Other specified noninflammatory disorders of vagina (principal); Z20.2 Contact with and (suspected) exposure to infections with a predominantly sexual mode of transmission

== ENCOUNTER 2025-08-05 10:52 | Outpatient (AMB) | payer OTHER, SELFPAY ==
--- NOTE | 2025-08-05 10:57 | HO.NEPHOV_ITS ---
Vital Signs 08/05/25 10:58 Height 5 ft 4 in Weight 122 lb BMI 20.9 BP 120/70 Blood Pressure Location Lt brachial Position Sitting Pulse 69 Pulse Source Pulse Oximeter Pulse Oximetry (%) 99 Oxygen Delivery Method Room Air Intake Visit Reasons: Hypertension last seen 05/2024,conf. 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 Accompanied by: Self / Same As Patient Allergies azithromycin (Zithromax Z-Issac) Allergy (Unknown, Verified 08/05/25 10:59) rash, hives lisinopril Allergy (Unknown, Verified 08/05/25 10:59) muscle cramps metoprolol Allergy (Unknown, Verified 08/05/25 10:59) bruises simvastatin Allergy (Unknown, Verified 08/05/25 10:59) face swelling amlodipine Adverse Reaction (Intermediate, Verified 08/05/25 10:59) Reflex tachycardia Medication List - Last Reconciled 08/05/25 by Jerrell Waterman MD acetaminophen 500 mg PO DAILY PRN atorvastatin 10 mg PO DAILY blood pressure monitor (Blood Pressure Kit) As directed carvedilol 25 mg PO BID cyclobenzaprine 10 mg PO TID PRN fluconazole 150 mg PO Q3D spironolactone 25 mg PO DAILY HPI Comments Details: Angella is a pleasant 53-year-old woman with a history of hypertension. She has been referred for hypokalemia. Recently potassium was 3.2 mg/dL she was given potassium supplementation for a week which she has completed. Prior to this 6 months ago potassium was in normal range. About a year ago she had an episode of hypokalemia also which was treated with potassium supplementation. She denies taking any diuretics. She has no history of in diarrhea. She was on amlodipine 5 mg dose has been increased to 10 mg recently. Overall blood pressure has been well controlled. She is history of cough due to lisinopril therefore she has not on any EMIL inhibitors. She is history of smoking for many years she quit smoking about a week ago. She smoked up to 1 pack a day. She works as a [employer] She had a normal delivery without any preeclampsia. No history of unexplained sweating or palpitations. No edema. No urinary symptoms. No weight loss No fever All systems were reviewed 02/17/2024. Accompanied by daughter. She is cut down on amlodipine. Still has tachycardia. She drinks about 3 cups of coffee in the morning. Underwent surgery for trigger finger on the right hand 04/20/2024. She was given labetalol 100 mg twice a day last visit. She had developed a rash in therefore this was switched to hydralazine 25 mg twice a day. Blood pressure is suboptimal. She continues to have some rash. 05/20/2024. She was recently in the ER with elevated blood pressure. Carvedilol was increased to 25 mg b.i.d. which he is tolerating well. Blood pressure still suboptimal. No new complaints today. 08/05/25 The patient is a 54-year-old female presenting with the management of blood pressure. Her blood pressure is currently well-controlled with spironolactone and carvedilol, taken twice daily. She denies experiencing any side effects such as lightheadedness or urinary issues. She maintains regular follow-ups with her primary care physician every six jean hs, with the next visit scheduled on the . She has no issues with her medication regimen and requires a refill for spironolactone. PFSH Medical History Vaginal discharge Screening-pulmonary TB COVID-19 virus infection Hypercholesterolemia Hypertension Tobacco abuse Anxiety Alcohol abuse Surgical History History of tubal ligation History of appendectomy Family History Father Diabetes Hypertension CVD (cardiovascular disease) Stroke Mother Diabetes Hypertension Cervical cancer Sister Uterine cancer Maternal Aunt Cervical cancer Social History Housing: House Alcohol intake: current Alcohol intake frequency: holidays/special occasions only Patient Tobacco Use Status: Former Tobacco user Tobacco use type: Cigarette Cigarettes Per Day: 10 e-Cigarette/Vaping Use: Never Used Second Hand Smoke Exposure: No Substance Use Type: Marijuana service: No Current occupational status: employed 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, 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 Current occupational exposures/hazards: No Cognitive needs: No Hearing needs: No Vision needs: No Physical Exam Vital Signs: Last Vital Signs Pulse 69 08/05/25 10:58 BP 120/70 08/05/25 10:58 Pulse Ox 99 08/05/25 10:58 Oxygen Delivery Method Room Air 08/05/25 10:58 BMI result Body Mass Index 20.9 Const General: comfortable; No acute distress Orientation/consciousness: patient oriented x3 Eyes General: appearance normal, both eyes and all related structures Visual Ann: normal visual ann by confrontation Neck Neck: Yes supple and Yes no JVD Resp Effort & Inspection: normal respiratory effort and respiratory effort not decreased Auscultation: rhonchi Cardio Palpation: no palpable S3 and no palpable S4 Heart sounds: no rubs GI Inspection: Yes normal to inspection Palpation (GI): Soft to palpation Percussion: Yes normal to percussion Auscultation: normal bowel sounds General: Yes no CVA tenderness Back/Spine/Pelvis Back: no CVA tenderness Skin General skin exam: no petechiae and no purpura Neuro General: patient oriented x3 and no focal motor deficits Extrem General: No clubbing and No edema Results Reviewed Nephrology Results: Hgb, (12.0-16.0) 13.3 g/dl 07/01/25 WBC, (4.8-10.8) 6.9 X10*3/uL 07/01/25 Plt Count, (160-400) 288 X10*3/uL 07/01/25 Sodium, (135-145) 141 mmol/L 08/02/25 Potassium, (3.3-5.1) 3.5 mmol/L 08/02/25 Chloride, (96-108) 105 mmol/L 08/02/25 Carbon Dioxide, (22-29) 27 mmol/L 08/02/25 BUN, (9-16) 11 mg/dL 08/02/25 Creatinine, (0.5-1.4) 0.92 mg/dL 08/02/25 Calcium, (8.4-10.2) 9.5 mg/dL 08/02/25 Urine Protein, (Neg-Trace) Negative mg/dL 07/01/25 Assessment & Plan Assessment & Plan (1) Hypertension: Code(s): I10 - Essential (primary) hypertension Category: Medical (2) Hypokalemia: Code(s): E87.6 - Hypokalemia Category: Medical Plan 54-year-old woman with a history of hypertension and hypokalemia. No significant alkalosis. Recent plasma aldosterone level was normal at 6 with a PA/PRA ratio of 5.2. She has reflex tachycardia most likely due to calcium channel carol/amlodipine Repeat potassium is normal renal function is normal. BP welll controlled Keep carvedilol 25 mg b.i.d.. Keep spironolactone 25 mg daily. Coding Level of Care Code Est Pt Level 4 (91885) Diagnoses Primary hypertension I10 Hypokalemia E87.6
[2025-08-05 10:58] VITALS: BP 120/70; PULSE 69; O2SAT 99; BMI 20.9
== END 2025-08-05 11:06 | disposition home or self-care (01) ==
PROVIDERS: PCP Internal Medicine; Visit Provider Internal Medicine Hypertension Specialist
DX: I10 Essential (primary) hypertension (principal); E87.6 Hypokalemia
CPT/HCPCS: 99214

== ENCOUNTER 2025-08-23 12:54 | Outpatient (AMB) | payer OTHER, SELFPAY ==
[2025-08-23 13:04] VITALS: BP 140/84; PULSE 69; TEMP 36.4; O2SAT 97; BMI 20.7
--- NOTE | 2025-08-23 13:04 | A.OFFPC_ITS ---
Vital Signs 08/23/25 13:04 08/23/25 13:13 Height 5 ft 4 in Weight 120 lb 8 oz BMI 20.7 BP 140/84 H 140/80 H Blood Pressure Location Lt brachial Lt brachial Position Sitting Sitting Pulse 69 Pulse Source Pulse Oximeter Temp 97.5 F Temp Source Temporal Artery Scan Pulse Oximetry (%) 97 Oxygen Delivery Method Room Air Intake Visit Reasons: annual pe Allergies azithromycin (Zithromax Z-Issac) Allergy (Unknown, Verified 08/23/25 13:06) rash, hives lisinopril Allergy (Unknown, Verified 08/23/25 13:06) muscle cramps metoprolol Allergy (Unknown, Verified 08/23/25 13:06) bruises simvastatin Allergy (Unknown, Verified 08/23/25 13:06) face swelling amlodipine Adverse Reaction (Intermediate, Verified 08/23/25 13:06) Reflex tachycardia Medication List - Last Reconciled 08/23/25 by Marzena Carmen MD atorvastatin 10 mg PO DAILY blood pressure monitor (Blood Pressure Kit) As directed carvedilol 25 mg PO BID cyclobenzaprine 10 mg PO TID PRN spironolactone 25 mg PO DAILY Tobacco use date assessed: 08/23/25 Dental Screening Dental Screen Date: 08/23/25 Did you have a dental visit in the last 12 months?: No Did you have a dental problem in the last 6 months where you did not have access to dental care?: No Was dental information given to patient?: Patient has dentist HPI annual pe HPI Details nausea HPI Comments History of Present Illness Details History of Present Illness The patient is a 54 year old individual presenting for a physical examination. The patient has a past medical history of smoking, hypertension, hypercholesterolemia, migraines, depression, and generalized anxiety disorder. The patient was last seen in May 2024. For hypertension and hypokalemia, the patient follows with nephrology, with the last visit on August 05. The rv technician advised to continue carvedilol 25 mg twice a day and spironolactone 25 mg once a day. The patient has a history of medication intolerance to lisinopril, metoprolol, and amlodipine. The patient has had several recent episodes of abdominal pain. On August 02, the patient went to an urgent care center for abdominal pain and STD testing, which was negative. The patient also had an ER visit on July 01 for epigastric abdominal pain and was given omeprazole. The patient experienced an episode of feeling sick with nausea, inability to eat, and blood in the stool, which resulted in an unintentional 10-pound weight loss over a week and a half. A colonoscopy screening scheduled for November was not completed due to a lapse in insurance coverage, but the patient now has insurance and requests a new referral. The patient also reported having heartburn last month. The patient visited an urgent care center on July 22 for urticaria. The patient reports that ears feel tapped or clogged due to allergies. The patient's current medications include atorvastatin 10 mg, carvedilol, spironolactone, and cyclobenzaprine. Blood work from July 01 showed a normal blood count with mild macrocytosis. July blood work showed normal electrolytes with potassium in the low-normal range, good renal function, and normal blood sugar. The last cholesterol test in January 2024 was 112. Regarding substance use, the patient smokes half a pack (10 cigarettes) per day and has been smoking on and off for about 10 years. The patient reports drinking alcohol two to three times a month, consuming three to four drinks per occasion. The patient's family history is significant for a father with a history of heart problems and stroke, a mother with cervical cancer, a sister with uterine cancer, an aunt with cervical cancer, and another aunt with colon cancer at age 57. There is no family history of heart attacks before age 65. Health Maintenance The patient is due for a mammogram and was reminded to schedule an appointment. A referral will be re-initiated for a colonoscopy. The shingles vaccine was discussed as an optional but recommended two-dose series available at the pharmacy. Social History - Tobacco Use: The patient smokes 10 cig arettes per day (half a pack) and has smoked on-and-off for about 10 years. - Alcohol Use: The patient drinks alcoho l two or three times per month, consuming three to four drinks per occasion. 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 - The patient is experiencing significan t marital stress and anxiety, believing the is being unfaithful. - The patient's son has . - Employment and Insurance: The patient was previously working but stopped, resulting in a loss of insurance. - The patient is now covered under the [employer] insurance. Results - Labs (July 01): Normal blood count w ith mild macrocytosis. - Labs (August 02): Electrolytes are no rmal, with potassium in the low-normal range. Renal function is good, and blood sugar is normal. - Labs (January 2024): Cholesterol was 112. - Other Tests (August 02): STD testing was negative. PFSH Medical History Vaginal discharge Screening-pulmonary TB COVID-19 virus infection Hypercholesterolemia Hypertension Tobacco abuse Anxiety Alcohol abuse Surgical History History of tubal ligation History of appendectomy Family History (Updated 08/23/25 @ 13:16 by Marzena Carmen MD) Father Diabetes Hypertension CVD (cardiovascular disease) Stroke Mother Diabetes Hypertension Cervical cancer Sister Uterine cancer Maternal Aunt Cervical cancer Colon cancer Son CVD (cardiovascular disease) Social History (Updated 08/23/25 @ 13:18 by Marzena Carmen MD) Housing: House Alcohol intake: current Alcohol intake frequency: holidays/special occasions only Comment: 2-3 x a jean 3-4 drink Patient Tobacco Use Status: Current everyday Tobacco user Tobacco use type: Cigarette Cigarettes Per Day: 10 Years Smoked: 1/2 pack a day ( 10 years smoking) in total 07/2025 e-Cigarette/Vaping Use: Never Used Second Hand Smoke Exposure: No Substance Use Type: Marijuana service: No Current occupational status: employed 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 1. Little interest or pleasure in doing things: not at all 2. Feeling down, depressed, or hopeless: several days 3. Trouble falling or staying asleep, or sleeping too much: not at all 4. Feeling tired or having little energy: several days 5. Poor appetite or overeating: several days 6. Feeling bad about yourself - or that you are a failure or have let yourself or your family down: not at all 7. Trouble concentrating on things, such as reading the newspaper or watching television: not at all 8. Moving or speaking so slowly that other people could have noticed. Or the opposite - being so fidgety or restless that you have been moving around a lot more than usual: not at all 9. Thoughts that you would be better off or of hurting yourself in some way: not at all Total score: 3 Depression Screening Interpretation: Positive Depression Screening Done: Yes 10116 - PHQ-9 Billing: Yes Source: Developed by Drs. Binu Calhoun, Savannah Calvillo, Melquiades Hale and colleagues, with an educational gallo from [employer]. Thrive Questionnaire Date Thrive assessed: 08/23/25 I am a: Patient What is your living situation today?: I have a steady place to live Within the past 12 months, did the food you bought not last and you didn't have the money to get more?: I choose not to answer this question Within the past 12 months, did you worry whether your food would run out before you got money to buy more?: Never true Do you have trouble paying for medicines?: No Do you have trouble getting transportation to medical appointments?: No Do you have trouble paying your heating and electricity bill?: No Do you have trouble taking care of your child, family member or friend?: No Do you have trouble with day-to-day activities such as bathing, preparing meals, shopping, managing finances, etc.?: No Are you currently unemployed and looking for a job?: I choose not to answer this question Are you interested in more education?: No Please select the resources that you would like help with: None Currently or been in a relationship where the following occur: I choose not to answer THRIVE Score: 0 AUDIT C Alcohol Use Questionnaire (AUDIT-C) 1. How often do you have a drink containing alcohol?: 2-4 times a month 2. How many drinks containing alcohol do you have on a typical day when you are drinking?: 3 or 4 3. How often do you have six or more drinks on one occasion?: Never Total Score: 3 MACHO-7 AMB Questionnaire MACHO-7 Date MACHO - 7 assessed: 08/23/25 Feeling nervous, anxious, or on edge: 1 = Several days Not being able to stop or control worryin = Not at all Worrying too much about different things: 1 = Several days Trouble relaxin = Several days Being so restless that it is hard to sit still: 1 = Several days Becoming easily annoyed or irritable: 0 = Not at all Feeling afraid as if something awful might happen: 0 = Not at all Total MACHO-7 score (0-4 normal; 5-9 mild; 10-14 moderate; 15-21 severe): 4 Source: Developed by Drs. Binu Calhoun, Savannah Calvillo, Melquiades Hale and colleagues, with an educational gallo from [employer]. MACHO-7 Assessment Billing MACHO-7 Assessment Tool: MACHO-7 Assessment 58074 Review of Systems Narrative Review of Systems - Constitutional: Reports a recent unintentional 10-pound weight loss. - Denies fever. - HEENT: Vision: Denies vision problems but uses reading glasses. - Hearing: Reports ears feel tapped and clogged. - Throat: Denies dysphagia. - Cardiovascular: Denies chest pain and orthopnea. - Respiratory: Denies dyspnea on exertion. - Gastrointestinal: Reports nausea, heartburn, and a past episode of bloody diarrhea. - Reports current bowel movements are normal. - Genitourinary: Reports nocturia once per night. - Denies other urinary problems. - Neurological: Reports occasional dizziness, which is not worsening. - Denies syncope. - Musculoskeletal: Denies swelling in the legs. - Psychiatric: Reports stress, excessive worry, and anxiety, particularly regarding the patient's marriage. Const Denies poor appetite and Denies weakness Eyes Denies no additional complaints ENT Reports Normal hearing present, Denies dizziness, Denies nasal congestion, Denies tinnitus and Denies sore throat Card Denies chest pain, Denies syncope, Denies rapid heart rate and Denies dyspnea Resp Denies cough and Denies dyspnea GI Denies change in stool character, Reports constipation, Denies diarrhea, Denies nausea and Denies vomiting Denies urinary frequency, Denies difficulty voiding and Denies dysuria Neuro Reports Normal hearing present, Denies confusion, Denies dizziness, Denies syncope and Denies weakness Psych Denies confusion Physical exam (Primary Care) Vital Signs: Last Vital Signs Temp 97.5 F 08/23/25 13:04 Pulse 69 08/23/25 13:04 BP 140/80 H 08/23/25 13:13 Pulse Ox 97 08/23/25 13:04 Oxygen Delivery Method Room Air 08/23/25 13:04 BMI result Body Mass Index 20.7 Tobacco/Smoking Status: Tobacco use Status Tobacco use date assessed 08/23/25 08/23/25 13:07 Patient Tobacco Use Status Current everyday Tobacco 08/23/25 13:18 Tobacco use type Cigarette 08/23/25 13:18 e-Cigarette/Vaping Use Never Used 08/23/25 13:18 PHQ-9: PHQ-9 Score PHQ-9: Total score 3 08/23/25 13:25 Depression Screening Interpretation: Positive Thrive Assessment: Date of Thrive Assessment Date Thrive assessed 08/23/25 08/23/25 13:07 Currently or been in a relationship where the following occur: I choose not to answer Narrative Physical Exam General: Cooperative, healthy appearing, comfortable, no acute distress and well developed Orientation: Patient oriented x3 Limitations: No limitations Head: Normal to inspection Ears: Hearing test requested due to complaints of ears feeling tap and allergies Nose: Normal external nose present Face and sinus: Normal facial exam Eyes: Appearance normal, both eyes and all related structures; patient uses cheater glasses for vision Neck: Normal visual inspection and Yes full ROM Respiratory: Normal respiratory effort and able to speak in complete sentences. Clear to auscultation bilaterally Cardiovascular: Regular rate and rhythm. Normal S1 and S2 GI: Normal to inspection. Soft to palpation and nontender; patient reports past abdominal pain and nausea Skin: No rashes or lesions noted Neuro: Patient oriented x3 Extremities: Normal to inspection; no swelling in the legs Const General: No confusion Orientation/consciousness: No confusion HENMT Head: Yes normocephalic Ears: external ears normal and TM's normal bilaterally Face and sinus: Yes normal facial exam Mouth: moist mucous membranes Throat: Yes tonsils normal Eyes Conjunctivae: conjunctivae normal Pupils: Equal, round and reactive pupils present and Pupil accommodation reflex normal Direct Ophthalmoscopy: normal light reflex Neck Neck: No lymphadenopathy Thyroid: Thyroid normal Chest Chest palpation & inspection: normal inspection of the chest Resp Effort & Inspection: normal respiratory effort and no audible wheezes Auscultation: clear to auscultation bilaterally, no crackles, no wheezes and lung sounds not diminished Cardio Rate: regular rate Rhythm: regular rhythm Peripheral pulses: radial pulses present and dorsalis pedis present GI Palpation (GI): no masses Auscultation: normal bowel sounds and normoactive bowel sounds Rectal Exam - Female: deferred Skin General skin exam: no rashes or lesions noted Rashes: no rashes Neuro General: No confusion Cranial nerves: Yes Equal, round and reactive pupils present and Yes Normal hearing present Cognition (Neuro): normal cognition Gait exam (Neuro): Normal gait present Motor exam (neuro): 5/5 motor strength present throughout Deep tendon reflexes (DTR's): Right brachioradialis reflex intensity grade: 2+, Left brachioradialis reflex intensity grade: 2+, Right patellar reflex intensity grade: 2+ and Left patellar reflex intensity grade: 2+ Extrem General: No edema Office Procedures Flu Questionnaire Does the patient have a severe egg allergy?: No Does the patient have severe life threatening allergies?: No Does the patient have a fever or illness today?: No Has the patient ever had Guillain-Volga Syndrome?: No Has the patient ever had any past reaction to a flu shot?: No Immunizations Fluarix 8542-0303 (PF) 45 mcg (15 mcg x 3)/0.5 mL IM syringe Performing Provider: Marzena Carmen MD [facility] Administered by: Sade Martinez CMA on 08/23/25 13:25 Dose Route Admin Location Dispensed Lot Number Expiration Date NDC Shaper Setter 0.5 mL IM Right Deltoid 0.5 mL [id number] 03/28/26 [id number] [employer] VIS Given Date VIS Provided VIS Publication Date 08/23/25 Single Vaccine 24 Eligibility Eligibility Date Funding Source Not [facility] Eligible 08/23/25 Private Coding Level of Care Code Est Pt Prev Care 40-64y(02830) Diagnoses Annual physical exam Z00.00 Tobacco abuse Z72.0 Colon cancer screening Z12.11 Hypercholesterolemia E78.00 Primary hypertension I10 Generalized anxiety disorder F41.1 Breast cancer screening by mammogram Z12.31 Hearing deficit H91.90 Additional Codes MACHO-7 Assessment Billing - MACHO-7 Assessment Tool: MACHO-7 Assessment 97330 ([id number]) PHQ-9 - 91232 - PHQ-9 Billing: Yes ([id number]) Assessment & Plan Assessment & Plan (1) Annual physical exam: Code(s): Z00.00 - Encounter for general adult medical examination without abnormal findings Category: Medical Plan: Patient is advised to eat healthy, keep well hydrated, keep active and have adequate sleep. (2) Tobacco abuse: Comment: discussed about smoking 09/2022 Code(s): Z72.0 - Tobacco use Category: Medical Plan: Patient is strongly advised to stop smoking! (3) Colon cancer screening: Code(s): Z12.11 - Encounter for screening for malignant neoplasm of colon Category: Medical Plan: Reminded about colonoscopy (4) Hypercholesterolemia: Code(s): E78.00 - Pure hypercholesterolemia, unspecified Category: Medical Plan: Avoid fried foods, chicken skin, eggs, butter margarine, pastries and meat. Be it pork or beef they have a lot of cholesterol on atorvastatin 10 mg once a day (5) Hypertension: Code(s): I10 - Essential (primary) hypertension Category: Medical Plan: Continue with blood pressure medication. Decrease salt intake and exercise patient on carvedilol 25 mg twice a day spironolactone 25 mg once a day (6) Generalized anxiety disorder: Comment: Declined counseling Code(s): F41.1 - Generalized anxiety disorder Category: Medical (7) Breast cancer screening by mammogram: Code(s): Z12.31 - Encounter for screening mammogram for malignant neoplasm of breast Category: Medical Plan: Reminded about mammogram (8) Hearing deficit: Code(s): H91.90 - Unspecified hearing loss, unspecified ear Category: Medical Plan Plan Patient was informed and verbally consented to the use of an ambient scribe for clinic note documentation during this visit. 1. Hypertension The patient's blood pressure is borderline at 140/80 mmHg. The patient follows with nephrology for this condition and was advised to continue the current medication regimen. The plan is to continue carvedilol 25 mg twice daily and spironolactone 25 mg once daily, with no changes at this time. The patient was counseled that current guidelines recommend zero alcohol intake for women with hypertension. 2. Hypercholesterolemia The patient is currently treated with atorvastatin 10 mg daily. The last cholesterol level in January 2024 was 112. The plan is to continue atorvastatin 10 mg daily and obtain a fasting lipid panel in 2-3 months. 3. Tobacco Use Disorder The patient smokes 10 cigarettes per day and has approximately a 10-year smoking history. The patient was strongly advised to quit smoking and expressed a desire to do so. A prescription for nicotine patches (two months' supply, from highest to middle dose) will be sent to the patient's preferred pharmacy, with instructions to call for the lower dose when needed. The patient was counseled not to smoke cigarettes while using the patch. Wellbutrin, prescribed for anxiety, was also mentioned as a medication that will assist with smoking cessation. 4. Generalized Anxiety Disorder The patient reports significant worry and stress, particularly regarding suspicions of the 's infidelity. A referral will be placed for auto travel counselor ing. Wellbutrin was prescribed for anxiety, with dosing instructions to start with one tablet at bedtime for three days, then increase to twice daily. The patient was advised to stop the medication and notify the office if feeling unwell. 5. Abdominal Pain And Heartburn The patient has a history of recent abdominal pain, an episode of bloody diarrhea, nausea, and unintentional weight loss. The patient also reports heartburn. A new referral to gastroenterology for consultation and scheduling of a colonoscopy will be placed. Hyma-tch-mhckrxm and prescription options for heartburn were discussed, and the patient was advised to follow up if treatment is desired. 6. Allergic Rhinitis And Hearing Complaint The patient complains of severe allergy symptoms, including clogged or tapped ears, although the physical exam showed clear ear canals. Annika will be prescribed for allergy relief. A referral for a hearing test will also be placed to further evaluate the hearing complaint. Discussion Notes I discussed the management of the patient's multiple chronic conditions. We reviewed the current blood pressure regimen, which will remain unchanged per nephrology's recommendation, and I counseled the patient on the new guidelines recommending zero alcohol intake for women with hypertension. I strongly advised the patient to stop smoking and provided a prescription for nicotine patches, explaining the dosing and the importance of not smoking while using them. We discussed that the Wellbutrin prescribed for anxiety will also serve as an aid for smoking cessation. I addressed the patient's significant anxiety and marital stress by placing a referral for counseling and prescribing Wellbutrin, explaining the initial dosing instructions. Regarding the gastrointestinal symptoms, I am re-initiating a referral to gastroenterology for a colonoscopy. We also discussed a referral for a hearing test, prescriptions for allergies, and pending follow-up on a fasting lipid panel in a few months. Finally, we reviewed health maintenance needs, including the overdue mammogram and the optional but recommended shingles vaccine, for which I described the two-shot process and potential side effects. The patient acknowledged the instructions and plan. Patient Instructions - Continue taking your current medications for blood pressure (carvedilol, spironolactone) and cholesterol (atorvastatin) as directed. - It is very important to stop smoking. A prescription for nicotine patches has been sent to the [facility] on [address] in [place]. Do not smoke cigarettes while using the patch. - A prescription for Wellbutrin has been sent to your pharmacy to help with anxiety and smoking cessation. Take one pill at bedtime for the first 3 days, then start taking it twice a day. If you feel unwell, stop the medication and let us know. - We have placed a referral for you to speak with a counselor. They will contact you to set up an appointment. - We are also sending a new referral to the stomach specialist (computer systems support specialist) for a colonoscopy. Their office will contact you for scheduling. - Please schedule your mammogram, as it is now due. - A prescription for Annika has been sent to your pharmacy for your allergies. - We have ordered a hearing test for you. You will be contacted for scheduling. - We have ordered a fasting blood test to check your cholesterol, which should be done in about 2-3 months. Do not eat or drink anything except water for at least 8 hours before the test. - Due to your high blood pressure, it is recommended that you do not drink any alcohol. - The shingles vaccine is available at the pharmacy. It is given in two shots and is recommended to prevent a painful rash called shingles. Orders: Orders Influenza [id number] Immunization Today Z23 - Encounter for immunization Complete Blood Count Auto Diff 2 Months E78.00 - Pure hypercholesterolemia, unspecified Comprehensive Met. Panel 2 Months E78.00 - Pure hypercholesterolemia, unspecified MM tomosynthesis screening BI Today Z12.31 - Encounter for screening mammogram for malignant neoplasm of breast Free T4 (Free Thyroxine) 2 Months E78.00 - Pure hypercholesterolemia, unspecified Ferritin 2 Months E78.00 - Pure hypercholesterolemia, unspecified Vitamin B12 and Folate 2 Months E78.00 - Pure hypercholesterolemia, unspecified Vitamin D 25-OH Total 2 Months E78.00 - Pure hypercholesterolemia, unspecified Thyroid Stimulating Hormone 2 Months E78.00 - Pure hypercholesterolemia, unspecified Hemoglobin A1c 2 Months E78.00 - Pure hypercholesterolemia, unspecified Lipid Panel 2 Months E78.00 - Pure hypercholesterolemia, unspecified Referrals Gastroenterology Referral Z12.11 - Encounter for screening for malignant neoplasm of colon Speech and Hearing Referral H91.90 - Unspecified hearing loss, unspecified ear Psychiatry Referral F41.1 - Generalized anxiety disorder Medications: New nicotine 1 patch transdermal DAILY 28 ea 0RF Z72.0 - Tobacco use nicotine 1 patch transdermal DAILY 28 ea 0RF Z72.0 - Tobacco use fexofenadine (Annika Allergy) 180 mg PO DAILY 30 tabs 3RF Z72.0 - Tobacco use bupropion HCl SR (Wellbutrin SR) 150 mg PO BID 60 tabs 2RF F41.1 - Generalized anxiety disorder
[2025-08-23 13:13] VITALS: BP 140/80
== END 2025-08-23 13:43 | disposition home or self-care (01) ==
LOC: HO.HMCH 12:55
PROVIDERS: PCP Internal Medicine; Visit Provider Internal Medicine
DX: Z00.00 Encounter for general adult medical examination without abnormal findings (principal); Z72.0 Tobacco use; Z12.11 Encounter for screening for malignant neoplasm of colon; E78.00 Pure hypercholesterolemia, unspecified; I10 Essential (primary) hypertension; F41.1 Generalized anxiety disorder; Z12.31 Encounter for screening mammogram for malignant neoplasm of breast; H91.90 Unspecified hearing loss, unspecified ear; Z23 Encounter for immunization

== ENCOUNTER → 2025-08-23 12:54 | Outpatient (BNVA) | payer OTHER, SELFPAY | PROVIDERS: PCP Internal Medicine; Visit Provider Internal Medicine | DX: Z00.00 Encounter for general adult medical examination without abnormal findings (principal); I10 Essential (primary) hypertension; E78.00 Pure hypercholesterolemia, unspecified; E87.6 Hypokalemia; R10.9 Unspecified abdominal pain; F41.1 Generalized anxiety disorder; H91.90 Unspecified hearing loss, unspecified ear; R12 Heartburn; J30.9 Allergic rhinitis, unspecified; F17.210 Nicotine dependence, cigarettes, uncomplicated; Z23 Encounter for immunization | CPT/HCPCS: 90471; 90656; 96127 ==